=== PATIENT | male | born 1970 | race Caucasian/White ===

== ENCOUNTER 2021-11-09 19:46 | Emergency (ER) | payer MEDICAID ==
--- OUTSIDE RECORDS SUMMARY | 2021-11-09 19:59 | EXTERNAL MEDICAL SUMMARY RPT | Continuity of Care Document ---
:1970 Author Organization [facility] Address [address] [place] [address] Phone Allergies and Intolerances date description facility type (no date) No Known Drug Allergies [facility] (unkn own) Encounters No information. Functional Status No information. Immunizations No information. Medications No information. Problems No information. Procedures No information. Results/Labs test date author facility value unit interpret ation Result panel 1 (unknown) (no (unknown) (unknown) (no value) (units (unk nown) date) unknown) (unknown) (no (unknown) (unknown) Date of (units (unkno wn) date) Service: unknown) 10/16/21 (unknown) (no (unknown) (unknown) (no value) (units (unk nown) date) unknown) (unknown) (no (unknown) (unknown) 750 mg PO DAILY (units (unknown) date) Qty: 4 0RF unknown) (unknown) (no (unknown) (unknown) Allergies (units (unkn own) date) unknown) (unknown) (no (unknown) (unknown) Emergency (units (unkn own) date) Report unknown) (unknown) (no (unknown) (unknown) [facility] (units (unknown) date) [address] [place] [address] unknown) [place] [address] (unknown) (no (unknown) (unknown) Previous Rx's (units ( unknown) date) unknown) (unknown) (no (unknown) (unknown) Vital Signs - 8 (units (unknown) date) hr unknown) (unknown) (no (unknown) (unknown) (no value) (units (unk nown) date) unknown) (unknown) (no (unknown) (unknown) levofloxacin (units (u nknown) date) 750 mg tablet unknown) (unknown) (no (unknown) (unknown) 10/16/21 (units (unkno wn) date) unknown) (unknown) (no (unknown) (unknown) Medication (units (unk nown) date) Instructions unknown) Recorded (unknown) (no (unknown) (unknown) [id number] (units (unkn own) date) unknown) (unknown) (no (unknown) (unknown) 10:36 (units (unkno wn) date) unknown) (unknown) (no (unknown) (unknown) Age/Sex: 51 / M (units (unknown) date) unknown) (unknown) (no (unknown) (unknown) Allergy/AdvReac (units (unknown) date) Type Severity unknown) Reaction Status Date / Time (unknown) (no (unknown) (unknown) Blood Pressure (units (unknown) date) 134/87 unknown) 10/16/21 10:36 (unknown) (no (unknown) (unknown) Blood Pressure (units (unknown) date) 134/87 unknown) (unknown) (no (unknown) (unknown) Chief (units (unkno wn) date) Complaint: Neck unknown) Pain/Injury (unknown) (no (unknown) (unknown) Course (units (unkno wn) date) unknown) (unknown) (no (unknown) (unknown) : 1970 (units (unknown) date) unknown) Acct:[id number] (unknown) (no (unknown) (unknown) Departure (units (unkn own) date) unknown) (unknown) (no (unknown) (unknown) Discharge Plan (units (unknown) date) unknown) (unknown) (no (unknown) (unknown) ER Physician: (units ( unknown) date) Flo Kingsley unknown) LUIS (unknown) (no (unknown) (unknown) Exam (units (unkno wn) date) unknown) (unknown) (no (unknown) (unknown) Family History (units (unknown) date) (Reviewed unknown) 01/10/20 @ 19:26 by LUIS Rudolph) (unknown) (no (unknown) (unknown) Father (units (unkno wn) date) Healthy adult unknown) (unknown) (no (unknown) (unknown) General (units (unkno wn) date) unknown) (unknown) (no (unknown) (unknown) HPI - Neck (units (unk nown) date) Pain/Injury unknown) (unknown) (no (unknown) (unknown) Healthy adult (units ( unknown) date) male unknown) (unknown) (no (unknown) (unknown) Initial Vital (units ( unknown) date) Signs unknown) (unknown) (no (unknown) (unknown) Initial Vital (units ( unknown) date) Signs: unknown) (unknown) (no (unknown) (unknown) Medical History (units (unknown) date) (Reviewed unknown) 01/10/20 @ 19:26 by LUIS Rudolph) (unknown) (no (unknown) (unknown) Miscellaneous,D (units (unknown) date) MD cony unknown) [Primary Care Provider] - (unknown) (no (unknown) (unknown) Mode of (units (unkno wn) date) arrival: unknown) Ambulatory (unknown) (no (unknown) (unknown) Mother Asthma (units (unknown) date) unknown) (unknown) (no (unknown) (unknown) No Action (units (unkn own) date) unknown) (unknown) (no (unknown) (unknown) No Known Drug (units ( unknown) date) Allergies unknown) Allergy Verified 10/16/21 10:41 (unknown) (no (unknown) (unknown) No significant (units (unknown) date) past surgical unknown) history (unknown) (no (unknown) (unknown) Oxygen Delivery (units (unknown) date) Method unknown) 10/16/21 10:36 (unknown) (no (unknown) (unknown) Oxygen Delivery (units (unknown) date) Method Room Air unknown) (unknown) (no (unknown) (unknown) Patient History (units (unknown) date) unknown) (unknown) (no (unknown) (unknown) Patient: (units (unkno wn) date) Wm Sutton unknown) R MR#: M (unknown) (no (unknown) (unknown) Prescriptions: (units (unknown) date) unknown) (unknown) (no (unknown) (unknown) Pulse Oximetry (units (unknown) date) 96 10/16/21 unknown) 10:36 (unknown) (no (unknown) (unknown) Pulse Oximetry (units (unknown) date) 96 unknown) (unknown) (no (unknown) (unknown) Pulse Rate 89 (units (unknown) date) 10/16/21 10:36 unknown) (unknown) (no (unknown) (unknown) Pulse Rate 89 (units ( unknown) date) unknown) (unknown) (no (unknown) (unknown) Referrals: (units (unk nown) date) unknown) (unknown) (no (unknown) (unknown) Related Data (units (u nknown) date) unknown) (unknown) (no (unknown) (unknown) Respiratory (units (un known) date) Rate 14 unknown) 10/16/21 10:36 (unknown) (no (unknown) (unknown) Respiratory (units (un known) date) Rate 14 unknown) (unknown) (no (unknown) (unknown) Signed By: (units (unk nown) date) unknown) (unknown) (no (unknown) (unknown) Sister (units (unkno wn) date) Healthy adult unknown) (unknown) (no (unknown) (unknown) Smoking Status: (units (unknown) date) Current every unknown) day smoker (unknown) (no (unknown) (unknown) Smoking Status: (units (unknown) date) Current every unknown) day smoker (unknown) (no (unknown) (unknown) Social History (units (unknown) date) (Reviewed unknown) 01/10/20 @ 19:26 by LUIS Rudolph) (unknown) (no (unknown) (unknown) Stated (units (unkno wn) date) Complaint: neck unknown) pain (unknown) (no (unknown) (unknown) Substance Use (units ( unknown) date) Type: does not unknown) use (unknown) (no (unknown) (unknown) Surgical (units (unkno wn) date) History unknown) (unknown) (no (unknown) (unknown) Temperature (units (un known) date) 97.6 F unknown) 10/16/21 10:36 (unknown) (no (unknown) (unknown) Temperature (units (un known) date) 97.6 F unknown) (unknown) (no (unknown) (unknown) Time Seen by (units (u nknown) date) Provider: unknown) 10/16/21 11:57 (unknown) (no (unknown) (unknown) Tobacco (units (unkno wn) date) dependence unknown) (unknown) (no (unknown) (unknown) Vital Signs (units (un known) date) unknown) (unknown) (no (unknown) (unknown) Vital signs: (units (u nknown) date) unknown) (unknown) (no (unknown) (unknown) alcohol intake (units (unknown) date) frequency: unknown) holidays/special occasions only (unknown) (no (unknown) (unknown) alcohol intake: (units (unknown) date) never unknown) (unknown) (no (unknown) (unknown) household (units (unkn own) date) members: spouse unknown) and family (unknown) (no (unknown) (unknown) levofloxacin (units (u nknown) date) 750 mg tablet unknown) 750 mg PO DAILY #4 tabs 06/10/18 (unknown) (no (unknown) (unknown) substance use (units ( unknown) date) type: does not unknown) use Result panel 2 (unknown) (no (unknown) (unknown) (no value) (units (unk nown) date) unknown) (unknown) (no (unknown) (unknown) [address] [place] [address] (units (unknown) date) unknown) (unknown) (no (unknown) (unknown) [place] (units ( unknown) date) [address] unknown) (unknown) (no (unknown) (unknown) CT Scan Report (units (unknown) date) unknown) (unknown) (no (unknown) (unknown) [facility] (units (unknown) date) unknown) (unknown) (no (unknown) (unknown) Signed (units (unkno wn) date) unknown) (unknown) (no (unknown) (unknown) (no value) (units (unk nown) date) unknown) (unknown) (no (unknown) (unknown) 10/16/21 (units (unkno wn) date) unknown) (unknown) (no (unknown) (unknown) Approved by: (units (u nknown) date) wolf Eduardo M.D. on 10/16/2021 at 12:44 (unknown) (no (unknown) (unknown) Bones: There is (units (unknown) date) normal overall unknown) bony alignment. No acute vertebral body (unknown) (no (unknown) (unknown) COMPARISON: (units (un known) date) None. unknown) (unknown) (no (unknown) (unknown) FINDINGS: (units (unkn own) date) unknown) (unknown) (no (unknown) (unknown) IMPRESSION: (units (un known) date) unknown) (unknown) (no (unknown) (unknown) INDICATIONS: (units (u nknown) date) Pain unknown) (unknown) (no (unknown) (unknown) Image quality: (units (unknown) date) Excellent. unknown) (unknown) (no (unknown) (unknown) Incidental (units (unk nown) date) pulmonary unknown) subpleural blebs and fibrotic change (unknown) (no (unknown) (unknown) Noncontrast 3 mm (units (unknown) date) thick sections unknown) acquired through the region of interest in the (unknown) (no (unknown) (unknown) Soft tissues: (units ( unknown) date) No paravertebral unknown) masses or hematomas. Visualized posteromedial (unknown) (no (unknown) (unknown) TECHNIQUE: (units (unk nown) date) unknown) (unknown) (no (unknown) (unknown) Unremarkable CT (units (unknown) date) thoracic spine unknown) without fracture or intrinsic osseous lesion. (unknown) (no (unknown) (unknown) appear clear. (units ( unknown) date) Subpleural blebs unknown) and fibrotic change noted in both lungs (unknown) (no (unknown) (unknown) fractures. No (units (unknown) date) suspicious unknown) sclerotic or lytic bony lesions. Osseous central (unknown) (no (unknown) (unknown) is of normal (units (u nknown) date) overall caliber. unknown) (unknown) (no (unknown) (unknown) reduction, the (units (unknown) date) following was unknown) used: automated exposure control. (unknown) (no (unknown) (unknown) spine. Sagittal (units (unknown) date) and coronal unknown) reformats were then constructed. For radiation (unknown) (no (unknown) (unknown) Accession (units (unkn own) date) Number: unknown) [id number] (unknown) (no (unknown) (unknown) Age/Sex: 51 / M (units (unknown) date) Date of unknown) Service: (unknown) (no (unknown) (unknown) : 1970 (units (unknown) date) Acct:[id number] unknown) (unknown) (no (unknown) (unknown) Loc: ED (units (unkno wn) date) unknown) (unknown) (no (unknown) (unknown) [id number] (units (unk nown) date) unknown) (unknown) (no (unknown) (unknown) Ordering (units (unkno wn) date) Provider: unknown) Flo Kingsley (unknown) (no (unknown) (unknown) PROCEDURE: CT (units (unknown) date) THORACIC SPINE WO unknown) CON (unknown) (no (unknown) (unknown) Patient: (units (unkno wn) date) Wm Sutton R unknown) MR#: (unknown) (no (unknown) (unknown) Procedure: CT (units ( unknown) date) thoracic spine wo unknown) con (unknown) (no (unknown) (unknown) compression (units (un known) date) unknown) (unknown) (no (unknown) (unknown) dose (units (unkno wn) date) unknown) (unknown) (no (unknown) (unknown) lungs (units (unkno wn) date) unknown) (unknown) (no (unknown) (unknown) spinal canal (units (u nknown) date) unknown) (unknown) (no (unknown) (unknown) thoracic (units (unkno wn) date) unknown) Result panel 3 (unknown) (no (unknown) (unknown) (no value) (units (unk nown) date) unknown) (unknown) (no (unknown) (unknown) Date of Service: (units (unknown) date) 10/16/21 unknown) (unknown) (no (unknown) (unknown) (no value) (units (unk nown) date) unknown) (unknown) (no (unknown) (unknown) 750 mg PO DAILY (units (unknown) date) Qty: 4 0RF unknown) (unknown) (no (unknown) (unknown) Allergies (units (unkn own) date) unknown) (unknown) (no (unknown) (unknown) Emergency Report (units (unknown) date) unknown) (unknown) (no (unknown) (unknown) [facility] (units (unknown) date) [address] unknown) [place] [id number] (unknown) (no (unknown) (unknown) Previous Rx's (units ( unknown) date) unknown) (unknown) (no (unknown) (unknown) Vital Signs - 8 (units (unknown) date) hr unknown) (unknown) (no (unknown) (unknown) (no value) (units (unk nown) date) unknown) (unknown) (no (unknown) (unknown) levofloxacin 750 (units (unknown) date) mg tablet unknown) (unknown) (no (unknown) (unknown) 10/16/21 (units (unkno wn) date) unknown) (unknown) (no (unknown) (unknown) Medication (units (unk nown) date) Instructions unknown) Recorded (unknown) (no (unknown) (unknown) Paraspinous (units (un known) date) tenderness at unknown) T3-4. Positive pain with Spurling's test but no hand (unknown) (no (unknown) (unknown) [id number] (units (unkn own) date) unknown) (unknown) (no (unknown) (unknown) 10:36 (units (unkno wn) date) unknown) (unknown) (no (unknown) (unknown) 51-year-old male, (units (unknown) date) daily smoker, unknown) presents emergency department with upper back (unknown) (no (unknown) (unknown) Age/Sex: 51 / M (units (unknown) date) unknown) (unknown) (no (unknown) (unknown) Allergy/AdvReac (units (unknown) date) Type Severity unknown) Reaction Status Date / Time (unknown) (no (unknown) (unknown) Blood Pressure (units (unknown) date) 134/87 10/16/21 unknown) 10:36 (unknown) (no (unknown) (unknown) Blood Pressure (units (unknown) date) 134/87 unknown) (unknown) (no (unknown) (unknown) CARDIOVASCULAR: (units (unknown) date) Denies chest pain, unknown) palpitations, edema. (unknown) (no (unknown) (unknown) CARDIOVASCULAR: (units (unknown) date) Regular rate and unknown) rhythm without murmurs, peripheral pulses (unknown) (no (unknown) (unknown) Chief Complaint: (units (unknown) date) Neck Pain/Injury unknown) (unknown) (no (unknown) (unknown) Course (units (unkno wn) date) unknown) (unknown) (no (unknown) (unknown) : 1970 (units (unknown) date) Acct:[id number] unknown) (unknown) (no (unknown) (unknown) Departure (units (unkn own) date) unknown) (unknown) (no (unknown) (unknown) Discharge Plan (units (unknown) date) unknown) (unknown) (no (unknown) (unknown) ER Physician: (units ( unknown) date) Flo Kingsley unknown) (unknown) (no (unknown) (unknown) Exam (units (unkno wn) date) unknown) (unknown) (no (unknown) (unknown) Exam Narrative: (units (unknown) date) unknown) (unknown) (no (unknown) (unknown) Family History (units (unknown) date) (Reviewed 10/16/21 unknown) @ 12:32 by LUIS Zaragoza) (unknown) (no (unknown) (unknown) Father Healthy (units (unknown) date) adult unknown) (unknown) (no (unknown) (unknown) GASTROINTESTINAL: (units (unknown) date) Abdomen soft, unknown) non-tender, nondistended without guarding or (unknown) (no (unknown) (unknown) GASTROINTESTINAL: (units (unknown) date) Denies nausea, unknown) vomiting, abdominal pain, diarrhea, (unknown) (no (unknown) (unknown) GENERAL: Denies (units (unknown) date) chills, fatigue, unknown) fever, sweats. See HPI (unknown) (no (unknown) (unknown) GENERAL: This is (units (unknown) date) a well-nourished, unknown) well-developed patient, in no acute distress (unknown) (no (unknown) (unknown) : Denies (units (un known) date) dysuria, unknown) frequency, incontinence, hematuria, urinary retention, (unknown) (no (unknown) (unknown) General (units (unkno wn) date) unknown) (unknown) (no (unknown) (unknown) HEAD: Atraumatic. (units (unknown) date) Normocephalic. unknown) (unknown) (no (unknown) (unknown) HEENT: Denies (units ( unknown) date) sinus pain, ear unknown) pain, sore throat, difficulty swallowing, (unknown) (no (unknown) (unknown) HPI - Neck (units (unk nown) date) Pain/Injury unknown) (unknown) (no (unknown) (unknown) HPI Narrative: (units (unknown) date) unknown) (unknown) (no (unknown) (unknown) Healthy adult (units ( unknown) date) male unknown) (unknown) (no (unknown) (unknown) History of (units (unk nown) date) Present Illness unknown) (unknown) (no (unknown) (unknown) Initial Vital (units ( unknown) date) Signs unknown) (unknown) (no (unknown) (unknown) Initial Vital (units ( unknown) date) Signs: unknown) (unknown) (no (unknown) (unknown) MSK: Moves all (units (unknown) date) extremities. unknown) Normal range of motion, no clubbing or edema. (unknown) (no (unknown) (unknown) MSK: Denies (units (un known) date) weakness, joint unknown) pain, or bony pain. (unknown) (no (unknown) (unknown) Medical History (units (unknown) date) (Reviewed 10/16/21 unknown) @ 12:32 by LUIS Zaragoza) (unknown) (no (unknown) (unknown) Miscellaneous,Doc (units (unknown) date) MD luisito [Primary unknown) Care Provider] - (unknown) (no (unknown) (unknown) Mode of arrival: (units (unknown) date) Ambulatory unknown) (unknown) (no (unknown) (unknown) Mother Asthma (units (unknown) date) unknown) (unknown) (no (unknown) (unknown) NECK: Trachea (units (u nknown) date) midline. No JVD or unknown) lymphadenopathy. Tender along right trapezius. (unknown) (no (unknown) (unknown) NEURO: A+O x 3. (units (unknown) date) unknown) (unknown) (no (unknown) (unknown) NEUROLOGIC: (units (un known) date) Denies weakness, unknown) dizziness, headache, confusion. (unknown) (no (unknown) (unknown) Narrative (units (unkn own) date) unknown) (unknown) (no (unknown) (unknown) Narrative: (units (unk nown) date) unknown) (unknown) (no (unknown) (unknown) Neurovascularly (units (unknown) date) intact. unknown) (unknown) (no (unknown) (unknown) No Action (units (unkn own) date) unknown) (unknown) (no (unknown) (unknown) No Known Drug (units ( unknown) date) Allergies Allergy unknown) Verified 10/16/21 10:41 (unknown) (no (unknown) (unknown) No significant (units (unknown) date) past surgical unknown) history (unknown) (no (unknown) (unknown) Oxygen Delivery (units (unknown) date) Method 10/16/21 unknown) 10:36 (unknown) (no (unknown) (unknown) Oxygen Delivery (units (unknown) date) Method Room Air unknown) (unknown) (no (unknown) (unknown) PSYCHIATRIC: No (units (unknown) date) concerning unknown) psychosocial issues. (unknown) (no (unknown) (unknown) Patient History (units (unknown) date) unknown) (unknown) (no (unknown) (unknown) Patient: (units (unkno wn) date) Wm Sutton R unknown) MR#: M (unknown) (no (unknown) (unknown) Prescriptions: (units (unknown) date) unknown) (unknown) (no (unknown) (unknown) Pulse Oximetry (units (unknown) date) 96 10/16/21 unknown) 10:36 (unknown) (no (unknown) (unknown) Pulse Oximetry 96 (units (unknown) date) unknown) (unknown) (no (unknown) (unknown) Pulse Rate 89 (units (unknown) date) 10/16/21 10:36 unknown) (unknown) (no (unknown) (unknown) Pulse Rate 89 (units ( unknown) date) unknown) (unknown) (no (unknown) (unknown) RESPIRATORY: (units (u nknown) date) Breath sounds unknown) equal and clear bilaterally. No wheezes, rales, or (unknown) (no (unknown) (unknown) RESPIRATORY: (units (u nknown) date) Denies dyspnea, unknown) cough, wheezing, sputum. (unknown) (no (unknown) (unknown) Referrals: (units (unk nown) date) unknown) (unknown) (no (unknown) (unknown) Related Data (units (u nknown) date) unknown) (unknown) (no (unknown) (unknown) Respiratory Rate (units (unknown) date) 14 10/16/21 unknown) 10:36 (unknown) (no (unknown) (unknown) Respiratory Rate (units (unknown) date) 14 unknown) (unknown) (no (unknown) (unknown) Review of Systems (units (unknown) date) unknown) (unknown) (no (unknown) (unknown) Reviewed (units (unkno wn) date) unknown) (unknown) (no (unknown) (unknown) SKIN: Denies (units (u nknown) date) rash, skin unknown) lesions, or pruritis. (unknown) (no (unknown) (unknown) SKIN: Warm, dry, (units (unknown) date) no rashes or unknown) lesions noted. (unknown) (no (unknown) (unknown) Signed By: (units (unk nown) date) unknown) (unknown) (no (unknown) (unknown) Sister Healthy (units (unknown) date) adult unknown) (unknown) (no (unknown) (unknown) Smoking Status: (units (unknown) date) Current every day unknown) smoker (unknown) (no (unknown) (unknown) Smoking Status: (units (unknown) date) Current every day unknown) smoker (unknown) (no (unknown) (unknown) Social History (units (unknown) date) (Reviewed 10/16/21 unknown) @ 12:32 by LUIS Zaragoza) (unknown) (no (unknown) (unknown) Stated Complaint: (units (unknown) date) neck pain unknown) (unknown) (no (unknown) (unknown) Substance Use (units ( unknown) date) Type: does not use unknown) (unknown) (no (unknown) (unknown) Surgical History (units (unknown) date) (Reviewed 10/16/21 unknown) @ 12:32 by LUIS Zaragoza) (unknown) (no (unknown) (unknown) Temperature 97.6 (units (unknown) date) F 10/16/21 10:36 unknown) (unknown) (no (unknown) (unknown) Temperature 97.6 (units (unknown) date) F unknown) (unknown) (no (unknown) (unknown) Time Seen by (units (u nknown) date) Provider: 10/16/21 unknown) 11:57 (unknown) (no (unknown) (unknown) Tobacco (units (unkno wn) date) dependence unknown) (unknown) (no (unknown) (unknown) Vital Signs (units (un known) date) unknown) (unknown) (no (unknown) (unknown) Vital signs: (units (u nknown) date) unknown) (unknown) (no (unknown) (unknown) alcohol intake (units (unknown) date) frequency: unknown) holidays/special occasions only (unknown) (no (unknown) (unknown) alcohol intake: (units (unknown) date) never unknown) (unknown) (no (unknown) (unknown) and neck pain x3 (units (unknown) date) days. Patient unknown) reports numbness and tingling of bilateral hands (unknown) (no (unknown) (unknown) constipation. (units ( unknown) date) unknown) (unknown) (no (unknown) (unknown) dizziness. (units (unk nown) date) unknown) (unknown) (no (unknown) (unknown) flank pain. (units (un known) date) unknown) (unknown) (no (unknown) (unknown) household (units (unkn own) date) members: spouse unknown) and family (unknown) (no (unknown) (unknown) injuries to his (units (unknown) date) spinal column. No unknown) history of cancer. Patient appears much (unknown) (no (unknown) (unknown) intact, cap (units (un known) date) refill <2 sec. unknown) (unknown) (no (unknown) (unknown) levofloxacin 750 (units (unknown) date) mg tablet 750 mg unknown) PO DAILY #4 tabs 06/10/18 (unknown) (no (unknown) (unknown) numbness. (units (unkn own) date) unknown) (unknown) (no (unknown) (unknown) older than his (units (unknown) date) stated age. unknown) (unknown) (no (unknown) (unknown) rebound. No (units (un known) date) suprapubic pain. unknown) (unknown) (no (unknown) (unknown) rhonchi. No (units (u nknown) date) cough. No unknown) increased respiratory effort. No accessory muscle use. (unknown) (no (unknown) (unknown) substance use (units ( unknown) date) type: does not unknown) use (unknown) (no (unknown) (unknown) that is not (units (un known) date) painful. Patient unknown) denies any trauma to that area or any previous (unknown) (no (unknown) (unknown) when lying on his (units (unknown) date) left side. unknown) Patient denies the ability to lay in a position Result panel 4 (unknown) (no (unknown) (unknown) (no value) (units (unk nown) date) unknown) (unknown) (no (unknown) (unknown) Date of Service: (units (unknown) date) 10/16/21 unknown) (unknown) (no (unknown) (unknown) (no value) (units (unk nown) date) unknown) (unknown) (no (unknown) (unknown) 750 mg PO DAILY (units (unknown) date) Qty: 4 0RF unknown) (unknown) (no (unknown) (unknown) Allergies (units (unkn own) date) unknown) (unknown) (no (unknown) (unknown) ED Orders (units (unkn own) date) unknown) (unknown) (no (unknown) (unknown) Emergency Report (units (unknown) date) unknown) (unknown) (no (unknown) (unknown) [facility] (units (unknown) date) [address] [place] [address] Street unknown) [place] [address] (unknown) (no (unknown) (unknown) Previous Rx's (units ( unknown) date) unknown) (unknown) (no (unknown) (unknown) Vital Signs - 8 (units (unknown) date) hr unknown) (unknown) (no (unknown) (unknown) (no value) (units (unk nown) date) unknown) (unknown) (no (unknown) (unknown) levofloxacin 750 (units (unknown) date) mg tablet unknown) (unknown) (no (unknown) (unknown) 10/16/21 (units (unkno wn) date) unknown) (unknown) (no (unknown) (unknown) Medication (units (unk nown) date) Instructions unknown) Recorded (unknown) (no (unknown) (unknown) [id number] (units (unkn own) date) unknown) (unknown) (no (unknown) (unknown) 10/16/21 12:28 (units (unknown) date) unknown) (unknown) (no (unknown) (unknown) 10:36 (units (unkno wn) date) unknown) (unknown) (no (unknown) (unknown) 51-year-old male, (units (unknown) date) daily smoker, unknown) presents emergency department with upper back (unknown) (no (unknown) (unknown) Age/Sex: 51 / M (units (unknown) date) unknown) (unknown) (no (unknown) (unknown) Allergy/AdvReac (units (unknown) date) Type Severity unknown) Reaction Status Date / Time (unknown) (no (unknown) (unknown) BACK (units (unkno wn) date) unknown) (unknown) (no (unknown) (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 (unknown) (no (unknown) (unknown) Back/Spine/Pelvis (units (unknown) date) unknown) (unknown) (no (unknown) (unknown) Blood Pressure (units (unknown) date) 134/87 10/16/21 unknown) 10:36 (unknown) (no (unknown) (unknown) Blood Pressure (units (unknown) date) 134/87 unknown) (unknown) (no (unknown) (unknown) CARDIOVASCULAR: (units (unknown) date) Denies chest pain, unknown) palpitations, edema. (unknown) (no (unknown) (unknown) CARDIOVASCULAR: (units (unknown) date) Regular rate and unknown) rhythm without murmurs, peripheral pulses (unknown) (no (unknown) (unknown) CT thoracic spine (units (unknown) date) wo con Stat unknown) (unknown) (no (unknown) (unknown) Chief Complaint: (units (unknown) date) Neck Pain/Injury unknown) (unknown) (no (unknown) (unknown) Course (units (unkno wn) date) unknown) (unknown) (no (unknown) (unknown) : 1970 (units (unknown) date) Acct:[id number] unknown) (unknown) (no (unknown) (unknown) Departure (units (unkn own) date) unknown) (unknown) (no (unknown) (unknown) Discharge Plan (units (unknown) date) unknown) (unknown) (no (unknown) (unknown) ER Physician: (units ( unknown) date) Flo Kingsley unknown) (unknown) (no (unknown) (unknown) Exam (units (unkno wn) date) unknown) (unknown) (no (unknown) (unknown) Exam Narrative: (units (unknown) date) unknown) (unknown) (no (unknown) (unknown) Family History (units (unknown) date) (Reviewed 10/16/21 unknown) @ 12:32 by LUIS Zaragoza) (unknown) (no (unknown) (unknown) Father Healthy (units (unknown) date) adult unknown) (unknown) (no (unknown) (unknown) GASTROINTESTINAL: (units (unknown) date) Abdomen soft, unknown) non-tender, nondistended without guarding or (unknown) (no (unknown) (unknown) GASTROINTESTINAL: (units (unknown) date) Denies nausea, unknown) vomiting, abdominal pain, diarrhea, (unknown) (no (unknown) (unknown) GENERAL: Denies (units (unknown) date) chills, fatigue, unknown) fever, sweats. See HPI (unknown) (no (unknown) (unknown) GENERAL: This is (units (unknown) date) a well-nourished, unknown) well-developed patient, in no acute distress (unknown) (no (unknown) (unknown) : Denies (units (un known) date) dysuria, unknown) frequency, incontinence, hematuria, urinary retention, (unknown) (no (unknown) (unknown) General (units (unkno wn) date) unknown) (unknown) (no (unknown) (unknown) HEAD: Atraumatic. (units (unknown) date) Normocephalic. unknown) (unknown) (no (unknown) (unknown) HEENT: Denies (units ( unknown) date) sinus pain, ear unknown) pain, sore throat, difficulty swallowing, (unknown) (no (unknown) (unknown) HPI - Neck (units (unk nown) date) Pain/Injury unknown) (unknown) (no (unknown) (unknown) HPI Narrative: (units (unknown) date) unknown) (unknown) (no (unknown) (unknown) Healthy adult (units ( unknown) date) male unknown) (unknown) (no (unknown) (unknown) History of (units (unk nown) date) Present Illness unknown) (unknown) (no (unknown) (unknown) Initial Vital (units ( unknown) date) Signs unknown) (unknown) (no (unknown) (unknown) Initial Vital (units ( unknown) date) Signs: unknown) (unknown) (no (unknown) (unknown) MSK: Moves all (units (unknown) date) extremities. unknown) Normal range of motion, no clubbing or edema. (unknown) (no (unknown) (unknown) MSK: Denies (units (un known) date) weakness, joint unknown) pain, or bony pain. (unknown) (no (unknown) (unknown) Medical History (units (unknown) date) (Reviewed 10/16/21 unknown) @ 12:32 by LUIS Zaragoza) (unknown) (no (unknown) (unknown) Miscellaneous,Doc (units (unknown) date) MD luisito [Primary unknown) Care Provider] - (unknown) (no (unknown) (unknown) Mode of arrival: (units (unknown) date) Ambulatory unknown) (unknown) (no (unknown) (unknown) Mother Asthma (units (unknown) date) unknown) (unknown) (no (unknown) (unknown) NECK: Trachea (units ( unknown) date) midline. No JVD or unknown) lymphadenopathy. Tender and tight along right (unknown) (no (unknown) (unknown) NEURO: A+O x 3. (units (unknown) date) unknown) (unknown) (no (unknown) (unknown) NEUROLOGIC: (units (un known) date) Denies weakness, unknown) dizziness, headache, confusion. (unknown) (no (unknown) (unknown) Narrative (units (unkn own) date) unknown) (unknown) (no (unknown) (unknown) Narrative: (units (unk nown) date) unknown) (unknown) (no (unknown) (unknown) Neurovascularly (units (unknown) date) intact. unknown) (unknown) (no (unknown) (unknown) No Action (units (unkn own) date) unknown) (unknown) (no (unknown) (unknown) No Known Drug (units ( unknown) date) Allergies Allergy unknown) Verified 10/16/21 10:41 (unknown) (no (unknown) (unknown) No significant (units (unknown) date) past surgical unknown) history (unknown) (no (unknown) (unknown) No symptoms of (units (unknown) date) cauda equina such unknown) as saddle anesthesia. (unknown) (no (unknown) (unknown) Ordered: (units (unkno wn) date) unknown) (unknown) (no (unknown) (unknown) Orders (units (unkno wn) date) unknown) (unknown) (no (unknown) (unknown) Other: (units (unkno wn) date) unknown) (unknown) (no (unknown) (unknown) Oxygen Delivery (units (unknown) date) Method 10/16/21 unknown) 10:36 (unknown) (no (unknown) (unknown) Oxygen Delivery (units (unknown) date) Method Room Air unknown) (unknown) (no (unknown) (unknown) PSYCHIATRIC: No (units (unknown) date) concerning unknown) psychosocial issues. (unknown) (no (unknown) (unknown) Patient History (units (unknown) date) unknown) (unknown) (no (unknown) (unknown) Patient: (units (unkno wn) date) Wm Sutton R unknown) MR#: M (unknown) (no (unknown) (unknown) Prescriptions: (units (unknown) date) unknown) (unknown) (no (unknown) (unknown) Pulse Oximetry (units (unknown) date) 96 10/16/21 unknown) 10:36 (unknown) (no (unknown) (unknown) Pulse Oximetry 96 (units (unknown) date) unknown) (unknown) (no (unknown) (unknown) Pulse Rate 89 (units (unknown) date) 10/16/21 10:36 unknown) (unknown) (no (unknown) (unknown) Pulse Rate 89 (units ( unknown) date) unknown) (unknown) (no (unknown) (unknown) RESPIRATORY: (units (u nknown) date) Breath sounds unknown) equal and clear bilaterally. No wheezes, rales, or (unknown) (no (unknown) (unknown) RESPIRATORY: (units (u nknown) date) Denies dyspnea, unknown) cough, wheezing, sputum. (unknown) (no (unknown) (unknown) ROM is full and (units (unknown) date) without pain. unknown) (unknown) (no (unknown) (unknown) Referrals: (units (unk nown) date) unknown) (unknown) (no (unknown) (unknown) Related Data (units (u nknown) date) unknown) (unknown) (no (unknown) (unknown) Resistive (units (unkn own) date) strengths are unknown) within normal limits (unknown) (no (unknown) (unknown) Respiratory Rate (units (unknown) date) 14 10/16/21 unknown) 10:36 (unknown) (no (unknown) (unknown) Respiratory Rate (units (unknown) date) 14 unknown) (unknown) (no (unknown) (unknown) Review of Systems (units (unknown) date) unknown) (unknown) (no (unknown) (unknown) Reviewed (units (unkno wn) date) unknown) (unknown) (no (unknown) (unknown) SI joints (units (unkn own) date) nontender. unknown) (unknown) (no (unknown) (unknown) SKIN: Denies (units (u nknown) date) rash, skin unknown) lesions, or pruritis. (unknown) (no (unknown) (unknown) SKIN: Warm, dry, (units (unknown) date) no rashes or unknown) lesions noted. (unknown) (no (unknown) (unknown) Sensation is (units (u nknown) date) grossly intact. unknown) (unknown) (no (unknown) (unknown) Signed By: (units (unk nown) date) unknown) (unknown) (no (unknown) (unknown) Sister Healthy (units (unknown) date) adult unknown) (unknown) (no (unknown) (unknown) Smoking Status: (units (unknown) date) Current every day unknown) smoker (unknown) (no (unknown) (unknown) Smoking Status: (units (unknown) date) Current every day unknown) smoker (unknown) (no (unknown) (unknown) Social History (units (unknown) date) (Reviewed 10/16/21 unknown) @ 12:32 by LUIS Zaragoza) (unknown) (no (unknown) (unknown) Stated Complaint: (units (unknown) date) neck pain unknown) (unknown) (no (unknown) (unknown) Substance Use (units ( unknown) date) Type: does not use unknown) (unknown) (no (unknown) (unknown) Surgical History (units (unknown) date) (Reviewed 10/16/21 unknown) @ 12:32 by LUIS Zaragoza) (unknown) (no (unknown) (unknown) Temperature 97.6 (units (unknown) date) F 10/16/21 10:36 unknown) (unknown) (no (unknown) (unknown) Temperature 97.6 (units (unknown) date) F unknown) (unknown) (no (unknown) (unknown) There is no CVA (units (unknown) date) tenderness. unknown) Paraspinous tenderness at T3-4 (unknown) (no (unknown) (unknown) There is no (units (un known) date) asymmetry, unknown) swelling, bruising or wound. (unknown) (no (unknown) (unknown) Time Seen by (units (u nknown) date) Provider: 10/16/21 unknown) 11:57 (unknown) (no (unknown) (unknown) Tobacco (units (unkno wn) date) dependence unknown) (unknown) (no (unknown) (unknown) Vital Signs (units (un known) date) unknown) (unknown) (no (unknown) (unknown) Vital signs: (units (u nknown) date) unknown) (unknown) (no (unknown) (unknown) alcohol intake (units (unknown) date) frequency: unknown) holidays/special occasions only (unknown) (no (unknown) (unknown) alcohol intake: (units (unknown) date) never unknown) (unknown) (no (unknown) (unknown) and neck pain x3 (units (unknown) date) days. Patient unknown) reports numbness and tingling of bilateral hands (unknown) (no (unknown) (unknown) but no hand (units (un known) date) numbness. unknown) (unknown) (no (unknown) (unknown) constipation. (units ( unknown) date) unknown) (unknown) (no (unknown) (unknown) dizziness. (units (unk nown) date) unknown) (unknown) (no (unknown) (unknown) flank pain. (units (un known) date) unknown) (unknown) (no (unknown) (unknown) household (units (unkn own) date) members: spouse unknown) and family (unknown) (no (unknown) (unknown) injuries to his (units (unknown) date) spinal column. No unknown) history of cancer. Patient appears much (unknown) (no (unknown) (unknown) intact, cap (units (un known) date) refill <2 sec. unknown) (unknown) (no (unknown) (unknown) levofloxacin 750 (units (unknown) date) mg tablet 750 mg unknown) PO DAILY #4 tabs 06/10/18 (unknown) (no (unknown) (unknown) older than his (units (unknown) date) stated age. unknown) (unknown) (no (unknown) (unknown) rebound. No (units (un known) date) suprapubic pain. unknown) (unknown) (no (unknown) (unknown) rhonchi. No (units (u nknown) date) cough. No unknown) increased respiratory effort. No accessory muscle use. (unknown) (no (unknown) (unknown) substance use (units ( unknown) date) type: does not unknown) use (unknown) (no (unknown) (unknown) that is not (units (un known) date) painful. Patient unknown) denies any trauma to that area or any previous (unknown) (no (unknown) (unknown) trapezius. (units (unk nown) date) Paraspinous unknown) tenderness at T3-4. Positive pain with Spurling's test (unknown) (no (unknown) (unknown) when lying on his (units (unknown) date) left side. unknown) Patient denies the ability to lay in a position Result panel 5 (unknown) (no (unknown) (unknown) (no value) (units (unk nown) date) unknown) (unknown) (no (unknown) (unknown) Radiologist's (units ( unknown) date) Impression: unknown) (unknown) (no (unknown) (unknown) Date of Service: (units (unknown) date) 10/16/21 unknown) (unknown) (no (unknown) (unknown) (no value) (units (unk nown) date) unknown) (unknown) (no (unknown) (unknown) [address] [place] [address] (units (unknown) date) unknown) (unknown) (no (unknown) (unknown) 750 mg PO DAILY (units (unknown) date) Qty: 4 0RF unknown) (unknown) (no (unknown) (unknown) Allergies (units (unkn own) date) unknown) (unknown) (no (unknown) (unknown) [place], [place] (units ( unknown) date) [id number] unknown) (unknown) (no (unknown) (unknown) CT Scan Report (units (unknown) date) unknown) (unknown) (no (unknown) (unknown) ED Orders (units (unkn own) date) unknown) (unknown) (no (unknown) (unknown) Emergency Report (units (unknown) date) unknown) (unknown) (no (unknown) (unknown) [facility] (units (unknown) date) unknown) (unknown) (no (unknown) (unknown) [facility] (units (unknown) date) [address] unknown) [place] [address] (unknown) (no (unknown) (unknown) Previous Rx's (units ( unknown) date) unknown) (unknown) (no (unknown) (unknown) Signed (units (unkno wn) date) unknown) (unknown) (no (unknown) (unknown) Vital Signs - 8 (units (unknown) date) hr unknown) (unknown) (no (unknown) (unknown) (no value) (units (unk nown) date) unknown) (unknown) (no (unknown) (unknown) levofloxacin 750 (units (unknown) date) mg tablet unknown) (unknown) (no (unknown) (unknown) 10/16/21 (units (unkno wn) date) unknown) (unknown) (no (unknown) (unknown) Medication (units (unk nown) date) Instructions unknown) Recorded (unknown) (no (unknown) (unknown) [id number] (units (unkn own) date) unknown) (unknown) (no (unknown) (unknown) 10/16/21 12:28 (units (unknown) date) unknown) (unknown) (no (unknown) (unknown) 10:36 (units (unkno wn) date) unknown) (unknown) (no (unknown) (unknown) 51-year-old male, (units (unknown) date) daily smoker, unknown) presents emergency department with upper back (unknown) (no (unknown) (unknown) ? (units (unkno wn) date) unknown) (unknown) (no (unknown) (unknown) Accession Number: (units (unknown) date) [id number] ?? unknown) (unknown) (no (unknown) (unknown) Acct:[id number] (units (unknown) date) unknown) (unknown) (no (unknown) (unknown) Age/Sex: 51 / M (units (unknown) date) unknown) (unknown) (no (unknown) (unknown) Age/Sex: 51 / M (units (unknown) date) unknown) (unknown) (no (unknown) (unknown) Allergy/AdvReac (units (unknown) date) Type Severity unknown) Reaction Status Date / Time (unknown) (no (unknown) (unknown) Approved by: Chad (units (unknown) date) Kaylan Pfeiffer on unknown) 10/16/2021 at 12:44? 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 (unknown) (no (unknown) (unknown) Back/Spine/Pelvis (units (unknown) date) unknown) (unknown) (no (unknown) (unknown) Blood Pressure (units (unknown) date) 134/87 10/16/21 unknown) 10:36 (unknown) (no (unknown) (unknown) Blood Pressure (units (unknown) date) 134/87 unknown) (unknown) (no (unknown) (unknown) Bones:? There is (units (unknown) date) normal overall unknown) bony alignment.? No acute vertebral body (unknown) (no (unknown) (unknown) CARDIOVASCULAR: (units (unknown) date) Denies chest pain, unknown) palpitations, edema. (unknown) (no (unknown) (unknown) CARDIOVASCULAR: (units (unknown) date) Regular rate and unknown) rhythm without murmurs, peripheral pulses (unknown) (no (unknown) (unknown) COMPARISON:? (units (u nknown) date) None. unknown) (unknown) (no (unknown) (unknown) CT - Thoracic: (units (unknown) date) unknown) (unknown) (no (unknown) (unknown) CT thoracic spine (units (unknown) date) wo con Stat unknown) (unknown) (no (unknown) (unknown) Chief Complaint: (units (unknown) date) Neck Pain/Injury unknown) (unknown) (no (unknown) (unknown) Course (units (unkno wn) date) unknown) (unknown) (no (unknown) (unknown) : 1970 (units (unknown) date) Acct:[id number] unknown) (unknown) (no (unknown) (unknown) : 1970 (units (unknown) date) unknown) (unknown) (no (unknown) (unknown) Date of Service: (units (unknown) date) 10/16/21 unknown) (unknown) (no (unknown) (unknown) Departure (units (unkn own) date) unknown) (unknown) (no (unknown) (unknown) Discharge Plan (units (unknown) date) unknown) (unknown) (no (unknown) (unknown) ER Physician: (units ( unknown) date) Flo Kingsley unknown) (unknown) (no (unknown) (unknown) Exam (units (unkno wn) date) unknown) (unknown) (no (unknown) (unknown) Exam Narrative: (units (unknown) date) unknown) (unknown) (no (unknown) (unknown) FINDINGS:? (units (unk nown) date) unknown) (unknown) (no (unknown) (unknown) Family History (units (unknown) date) (Reviewed 10/16/21 unknown) @ 12:32 by LUIS Zaragoza) (unknown) (no (unknown) (unknown) Father Healthy (units (unknown) date) adult unknown) (unknown) (no (unknown) (unknown) GASTROINTESTINAL: (units (unknown) date) Abdomen soft, unknown) non-tender, nondistended without guarding or (unknown) (no (unknown) (unknown) GASTROINTESTINAL: (units (unknown) date) Denies nausea, unknown) vomiting, abdominal pain, diarrhea, (unknown) (no (unknown) (unknown) GENERAL: Denies (units (unknown) date) chills, fatigue, unknown) fever, sweats. See HPI (unknown) (no (unknown) (unknown) GENERAL: This is (units (unknown) date) a well-nourished, unknown) well-developed patient, in no acute distress (unknown) (no (unknown) (unknown) : Denies (units (un known) date) dysuria, unknown) frequency, incontinence, hematuria, urinary retention, (unknown) (no (unknown) (unknown) General (units (unkno wn) date) unknown) (unknown) (no (unknown) (unknown) HEAD: Atraumatic. (units (unknown) date) Normocephalic. unknown) (unknown) (no (unknown) (unknown) HEENT: Denies (units ( unknown) date) sinus pain, ear unknown) pain, sore throat, difficulty swallowing, (unknown) (no (unknown) (unknown) HPI - Neck (units (unk nown) date) Pain/Injury unknown) (unknown) (no (unknown) (unknown) HPI Narrative: (units (unknown) date) unknown) (unknown) (no (unknown) (unknown) Healthy adult (units ( unknown) date) male unknown) (unknown) (no (unknown) (unknown) History of (units (unk nown) date) Present Illness unknown) (unknown) (no (unknown) (unknown) IMPRESSION:? (units (u nknown) date) unknown) (unknown) (no (unknown) (unknown) INDICATIONS:? (units ( unknown) date) Pain unknown) (unknown) (no (unknown) (unknown) Image quality:? (units (unknown) date) Excellent.? 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 (unknown) (no (unknown) (unknown) Initial Vital (units ( unknown) date) Signs unknown) (unknown) (no (unknown) (unknown) Initial Vital (units ( unknown) date) Signs: unknown) (unknown) (no (unknown) (unknown) Loc: ED (units (unkno wn) date) unknown) (unknown) (no (unknown) (unknown) MDM - Neck (units (unk nown) date) Pain/Injury unknown) (unknown) (no (unknown) (unknown) MR#: [id number] (units (unknown) date) unknown) (unknown) (no (unknown) (unknown) MSK: Moves all (units (unknown) date) extremities. unknown) Normal range of motion, no clubbing or edema. (unknown) (no (unknown) (unknown) MSK: Denies (units (un known) date) weakness, joint unknown) pain, or bony pain. (unknown) (no (unknown) (unknown) Medical History (units (unknown) date) (Reviewed 10/16/21 unknown) @ 12:32 by LUIS Zaragoza) (unknown) (no (unknown) (unknown) Miscellaneous,Doc (units (unknown) date) MD luisito [Primary unknown) Care Provider] - (unknown) (no (unknown) (unknown) Mode of arrival: (units (unknown) date) Ambulatory unknown) (unknown) (no (unknown) (unknown) Mother Asthma (units (unknown) date) unknown) (unknown) (no (unknown) (unknown) NECK: Trachea (units ( unknown) date) midline. No JVD or unknown) lymphadenopathy. Tender and tight along right (unknown) (no (unknown) (unknown) NEURO: A+O x 3. (units (unknown) date) unknown) (unknown) (no (unknown) (unknown) NEUROLOGIC: (units (un known) date) Denies weakness, unknown) dizziness, headache, confusion. (unknown) (no (unknown) (unknown) Narrative (units (unkn own) date) unknown) (unknown) (no (unknown) (unknown) Narrative: (units (unk nown) date) unknown) (unknown) (no (unknown) (unknown) Neurovascularly (units (unknown) date) intact. unknown) (unknown) (no (unknown) (unknown) No Action (units (unkn own) date) unknown) (unknown) (no (unknown) (unknown) No Known Drug (units ( unknown) date) Allergies Allergy unknown) Verified 10/16/21 10:41 (unknown) (no (unknown) (unknown) No significant (units (unknown) date) past surgical unknown) history (unknown) (no (unknown) (unknown) No symptoms of (units (unknown) date) cauda equina such unknown) as saddle anesthesia. (unknown) (no (unknown) (unknown) Noncontrast 3 mm (units (unknown) date) thick sections unknown) acquired through the region of interest in the (unknown) (no (unknown) (unknown) Ordered: (units (unkno wn) date) unknown) (unknown) (no (unknown) (unknown) Ordering (units (unkno wn) date) Provider: unknown) Flo Kingsley (unknown) (no (unknown) (unknown) Orders (units (unkno wn) date) unknown) (unknown) (no (unknown) (unknown) Other: (units (unkno wn) date) unknown) (unknown) (no (unknown) (unknown) Oxygen Delivery (units (unknown) date) Method 10/16/21 unknown) 10:36 (unknown) (no (unknown) (unknown) Oxygen Delivery (units (unknown) date) Method Room Air unknown) (unknown) (no (unknown) (unknown) PROCEDURE:? CT (units (unknown) date) THORACIC SPINE WO unknown) CON (unknown) (no (unknown) (unknown) PSYCHIATRIC: No (units (unknown) date) concerning unknown) psychosocial issues. (unknown) (no (unknown) (unknown) Patient History (units (unknown) date) unknown) (unknown) (no (unknown) (unknown) Patient: (units (unkno wn) date) Wm Sutton unknown) MR#: M (unknown) (no (unknown) (unknown) Patient: (units (unkno wn) date) Wm Sutton unknown) (unknown) (no (unknown) (unknown) Prescriptions: (units (unknown) date) unknown) (unknown) (no (unknown) (unknown) Procedure: CT (units ( unknown) date) thoracic spine wo unknown) con (unknown) (no (unknown) (unknown) Pulse Oximetry (units (unknown) date) 96 10/16/21 unknown) 10:36 (unknown) (no (unknown) (unknown) Pulse Oximetry 96 (units (unknown) date) unknown) (unknown) (no (unknown) (unknown) Pulse Rate 89 (units (unknown) date) 10/16/21 10:36 unknown) (unknown) (no (unknown) (unknown) Pulse Rate 89 (units ( unknown) date) unknown) (unknown) (no (unknown) (unknown) RESPIRATORY: (units (u nknown) date) Breath sounds unknown) equal and clear bilaterally. No wheezes, rales, or (unknown) (no (unknown) (unknown) RESPIRATORY: (units (u nknown) date) Denies dyspnea, unknown) cough, wheezing, sputum. (unknown) (no (unknown) (unknown) ROM is full and (units (unknown) date) without pain. unknown) (unknown) (no (unknown) (unknown) Referrals: (units (unk nown) date) unknown) (unknown) (no (unknown) (unknown) Related Data (units (u nknown) date) unknown) (unknown) (no (unknown) (unknown) Resistive (units (unkn own) date) strengths are unknown) within normal limits (unknown) (no (unknown) (unknown) Respiratory Rate (units (unknown) date) 14 10/16/21 unknown) 10:36 (unknown) (no (unknown) (unknown) Respiratory Rate (units (unknown) date) 14 unknown) (unknown) (no (unknown) (unknown) Review of Systems (units (unknown) date) unknown) (unknown) (no (unknown) (unknown) Reviewed (units (unkno wn) date) unknown) (unknown) (no (unknown) (unknown) SI joints (units (unkn own) date) nontender. unknown) (unknown) (no (unknown) (unknown) SKIN: Denies (units (u nknown) date) rash, skin unknown) lesions, or pruritis. (unknown) (no (unknown) (unknown) SKIN: Warm, dry, (units (unknown) date) no rashes or unknown) lesions noted. (unknown) (no (unknown) (unknown) Sensation is (units (u nknown) date) grossly intact. unknown) (unknown) (no (unknown) (unknown) Signed By: (units (unk nown) date) unknown) (unknown) (no (unknown) (unknown) Sister Healthy (units (unknown) date) adult unknown) (unknown) (no (unknown) (unknown) Smoking Status: (units (unknown) date) Current every day unknown) smoker (unknown) (no (unknown) (unknown) Smoking Status: (units (unknown) date) Current every day unknown) smoker (unknown) (no (unknown) (unknown) Social History (units (unknown) date) (Reviewed 10/16/21 unknown) @ 12:32 by LUIS Zaragoza) (unknown) (no (unknown) (unknown) Soft tissues:? No (units (unknown) date) paravertebral unknown) masses or hematomas.? Visualized posteromedial (unknown) (no (unknown) (unknown) Stated Complaint: (units (unknown) date) neck pain unknown) (unknown) (no (unknown) (unknown) Substance Use (units ( unknown) date) Type: does not use unknown) (unknown) (no (unknown) (unknown) Surgical History (units (unknown) date) (Reviewed 10/16/21 unknown) @ 12:32 by LUIS Zaragoza) (unknown) (no (unknown) (unknown) TECHNIQUE:? (units (un known) date) unknown) (unknown) (no (unknown) (unknown) Temperature 97.6 (units (unknown) date) F 10/16/21 10:36 unknown) (unknown) (no (unknown) (unknown) Temperature 97.6 (units (unknown) date) F unknown) (unknown) (no (unknown) (unknown) There is no CVA (units (unknown) date) tenderness. unknown) Paraspinous tenderness at T3-4 (unknown) (no (unknown) (unknown) There is no (units (un known) date) asymmetry, unknown) swelling, bruising or wound. (unknown) (no (unknown) (unknown) Time Seen by (units (u nknown) date) Provider: 10/16/21 unknown) 11:57 (unknown) (no (unknown) (unknown) Tobacco (units (unkno wn) date) dependence unknown) (unknown) (no (unknown) (unknown) Unremarkable? CT (units (unknown) date) thoracic spine unknown) without fracture or intrinsic osseous lesion. (unknown) (no (unknown) (unknown) Vital Signs (units (un known) date) unknown) (unknown) (no (unknown) (unknown) Vital signs: (units (u nknown) date) unknown) (unknown) (no (unknown) (unknown) alcohol intake (units (unknown) date) frequency: unknown) holidays/special occasions only (unknown) (no (unknown) (unknown) alcohol intake: (units (unknown) date) never unknown) (unknown) (no (unknown) (unknown) and neck pain x3 (units (unknown) date) days. Patient unknown) reports numbness and tingling of bilateral hands (unknown) (no (unknown) (unknown) appear clear.? (units (unknown) date) Subpleural blebs unknown) and fibrotic change noted in both lungs (unknown) (no (unknown) (unknown) but no hand (units (un known) date) numbness. unknown) (unknown) (no (unknown) (unknown) compression (units (un known) date) unknown) (unknown) (no (unknown) (unknown) constipation. (units ( unknown) date) unknown) (unknown) (no (unknown) (unknown) dizziness. (units (unk nown) date) unknown) (unknown) (no (unknown) (unknown) dose (units (unkno wn) date) unknown) (unknown) (no (unknown) (unknown) flank pain. (units (un known) date) unknown) (unknown) (no (unknown) (unknown) fractures.? No (units (unknown) date) suspicious unknown) sclerotic or lytic bony lesions.? Osseous central (unknown) (no (unknown) (unknown) household (units (unkn own) date) members: spouse unknown) and family (unknown) (no (unknown) (unknown) injuries to his (units (unknown) date) spinal column. No unknown) history of cancer. Patient appears much (unknown) (no (unknown) (unknown) intact, cap (units (un known) date) refill <2 sec. unknown) (unknown) (no (unknown) (unknown) is of normal (units (u nknown) date) overall caliber.? unknown) (unknown) (no (unknown) (unknown) levofloxacin 750 (units (unknown) date) mg tablet 750 mg unknown) PO DAILY #4 tabs 06/10/18 (unknown) (no (unknown) (unknown) lungs (units (unkno wn) date) unknown) (unknown) (no (unknown) (unknown) older than his (units (unknown) date) stated age. unknown) (unknown) (no (unknown) (unknown) rebound. No (units (un known) date) suprapubic pain. unknown) (unknown) (no (unknown) (unknown) reduction, the (units (unknown) date) following was unknown) used:? automated exposure control.? (unknown) (no (unknown) (unknown) rhonchi. No (units (u nknown) date) cough. No unknown) increased respiratory effort. No accessory muscle use. (unknown) (no (unknown) (unknown) spinal canal (units (u nknown) date) unknown) (unknown) (no (unknown) (unknown) spine.? Sagittal (units (unknown) date) and coronal unknown) reformats were then constructed.? For radiation (unknown) (no (unknown) (unknown) substance use (units ( unknown) date) type: does not unknown) use (unknown) (no (unknown) (unknown) that is not (units (un known) date) painful. Patient unknown) denies any trauma to that area or any previous (unknown) (no (unknown) (unknown) thoracic (units (unkno wn) date) unknown) (unknown) (no (unknown) (unknown) trapezius. (units (unk nown) date) Paraspinous unknown) tenderness at T3-4. Positive pain with Spurling's test (unknown) (no (unknown) (unknown) when lying on his (units (unknown) date) left side. unknown) Patient denies the ability to lay in a position Result panel 6 (unknown) (no (unknown) (unknown) (no value) (units (unk nown) date) unknown) (unknown) (no (unknown) (unknown) Radiologist's (units ( unknown) date) Impression: unknown) (unknown) (no (unknown) (unknown) *Please continue (units (unknown) date) to take your unknown) regular medications as directed. (unknown) (no (unknown) (unknown) Date of Service: (units (unknown) date) 10/16/21 unknown) (unknown) (no (unknown) (unknown) (no value) (units (unk nown) date) unknown) (unknown) (no (unknown) (unknown) <Electronically (units (unknown) date) signed by Flo Kingsley> (unknown) (no (unknown) (unknown) 10/16/21 1356 (units ( unknown) date) unknown) (unknown) (no (unknown) (unknown) 1 tab PO Q6H PRN (units (unknown) date) (Reason: pain) unknown) Qty: 10 0RF (unknown) (no (unknown) (unknown) [address] [place] [address] (units (unknown) date) unknown) (unknown) (no (unknown) (unknown) 500 mg PO TID PRN (units (unknown) date) (Reason: Neck unknown) pain) Qty: 18 0RF (unknown) (no (unknown) (unknown) 750 mg PO DAILY (units (unknown) date) Qty: 4 0RF unknown) (unknown) (no (unknown) (unknown) Allergies (units (unkn own) date) unknown) (unknown) (no (unknown) (unknown) [place], [place] (units ( unknown) date) [id number] unknown) (unknown) (no (unknown) (unknown) CT Scan Report (units (unknown) date) unknown) (unknown) (no (unknown) (unknown) ED Orders (units (unkn own) date) unknown) (unknown) (no (unknown) (unknown) Emergency Report (units (unknown) date) unknown) (unknown) (no (unknown) (unknown) [facility] (units (unknown) date) unknown) (unknown) (no (unknown) (unknown) [facility] (units (unknown) date) [address] [place] [address] unknown) [place] [address] (unknown) (no (unknown) (unknown) Previous Rx's (units ( unknown) date) unknown) (unknown) (no (unknown) (unknown) Signed (units (unkno wn) date) unknown) (unknown) (no (unknown) (unknown) Vital Signs - 8 (units (unknown) date) hr unknown) (unknown) (no (unknown) (unknown) [ ] New (units (unkno wn) date) medication unknown) prescriptions sent to your pharmacy: [ ] (unknown) (no (unknown) (unknown) [ ] No new (units (unk nown) date) medications given unknown) (unknown) (no (unknown) (unknown) [ x] New (units (unkno wn) date) medication written unknown) as a paper prescription (unknown) (no (unknown) (unknown) (no value) (units (unk nown) date) unknown) (unknown) (no (unknown) (unknown) levofloxacin 750 (units (unknown) date) mg tablet unknown) (unknown) (no (unknown) (unknown) methocarbamol 500 (units (unknown) date) mg tablet unknown) (unknown) (no (unknown) (unknown) oxycodone-acetami (units (unknown) date) nophen [Percocet] unknown) 5-325 mg tablet (unknown) (no (unknown) (unknown) 10/16/21 (units (unkno wn) date) unknown) (unknown) (no (unknown) (unknown) Medication (units (unk nown) date) Instructions unknown) Recorded (unknown) (no (unknown) (unknown) Strain of neck (units (unknown) date) muscle unknown) (unknown) (no (unknown) (unknown) tabs (units (unkno wn) date) unknown) (unknown) (no (unknown) (unknown) *If you do not (units (unknown) date) have a primary unknown) care provider please contact the [facility] (unknown) (no (unknown) (unknown) *Please follow up (units (unknown) date) with your primary unknown) care provider in 2-3 days, call for an (unknown) (no (unknown) (unknown) *What to do: (units (u nknown) date) unknown) (unknown) (no (unknown) (unknown) *You have been (units (unknown) date) diagnosed with unknown) right-sided neck strain. Your CT was normal. As (unknown) (no (unknown) (unknown) [id number] (units (unkn own) date) unknown) (unknown) (no (unknown) (unknown) 10/16/21 12:28 (units (unknown) date) unknown) (unknown) (no (unknown) (unknown) 10:36 (units (unkno wn) date) unknown) (unknown) (no (unknown) (unknown) 51-year-old male (units (unknown) date) presents to the unknown) emergency department with right-sided neck pain (unknown) (no (unknown) (unknown) 51-year-old male, (units (unknown) date) daily smoker, unknown) presents emergency department with upper back (unknown) (no (unknown) (unknown) ? (units (unkno wn) date) unknown) (unknown) (no (unknown) (unknown) ? Return to ER if (units (unknown) date) you should have unknown) any new, worsening or concerning symptoms, (unknown) (no (unknown) (unknown) Accession Number: (units (unknown) date) [id number] ?? unknown) (unknown) (no (unknown) (unknown) Acct:[id number] (units (unknown) date) unknown) (unknown) (no (unknown) (unknown) Activity (units (unkno wn) date) Restrictions/Addit unknown) ional Instructions: (unknown) (no (unknown) (unknown) Age/Sex: 51 / M (units (unknown) date) unknown) (unknown) (no (unknown) (unknown) Age/Sex: 51 / M (units (unknown) date) unknown) (unknown) (no (unknown) (unknown) Allergy/AdvReac (units (unknown) date) Type Severity unknown) Reaction Status Date / Time (unknown) (no (unknown) (unknown) Approved by: Chad (units (unknown) date) Kaylan Pfeiffer on unknown) 10/16/2021 at 12:44? 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 (unknown) (no (unknown) (unknown) Back/Spine/Pelvis (units (unknown) date) unknown) (unknown) (no (unknown) (unknown) Blood Pressure (units (unknown) date) 134/87 10/16/21 unknown) 10:36 (unknown) (no (unknown) (unknown) Blood Pressure (units (unknown) date) 134/87 unknown) (unknown) (no (unknown) (unknown) Bones:? There is (units (unknown) date) normal overall unknown) bony alignment.? No acute vertebral body (unknown) (no (unknown) (unknown) CARDIOVASCULAR: (units (unknown) date) Denies chest pain, unknown) palpitations, edema. (unknown) (no (unknown) (unknown) CARDIOVASCULAR: (units (unknown) date) Regular rate and unknown) rhythm without murmurs, peripheral pulses (unknown) (no (unknown) (unknown) COMPARISON:? (units (u nknown) date) None. unknown) (unknown) (no (unknown) (unknown) CT - Thoracic: (units (unknown) date) unknown) (unknown) (no (unknown) (unknown) CT thoracic spine (units (unknown) date) wo con Stat unknown) (unknown) (no (unknown) (unknown) Chief Complaint: (units (unknown) date) Neck Pain/Injury unknown) (unknown) (no (unknown) (unknown) Clinical (units (unkno wn) date) Impression: unknown) (unknown) (no (unknown) (unknown) Course (units (unkno wn) date) unknown) (unknown) (no (unknown) (unknown) : 1970 (units (unknown) date) Acct:[id number] unknown) (unknown) (no (unknown) (unknown) : 1970 (units (unknown) date) unknown) (unknown) (no (unknown) (unknown) Date of Service: (units (unknown) date) 10/16/21 unknown) (unknown) (no (unknown) (unknown) Departure (units (unkn own) date) unknown) (unknown) (no (unknown) (unknown) Discharge Plan (units (unknown) date) unknown) (unknown) (no (unknown) (unknown) ER Physician: (units ( unknown) date) Flo Kingsley unknown) (unknown) (no (unknown) (unknown) Exam (units (unkno wn) date) unknown) (unknown) (no (unknown) (unknown) Exam Narrative: (units (unknown) date) unknown) (unknown) (no (unknown) (unknown) FINDINGS:? (units (unk nown) date) unknown) (unknown) (no (unknown) (unknown) Family History (units (unknown) date) (Reviewed 10/16/21 unknown) @ 12:32 by LUIS Zaragoza) (unknown) (no (unknown) (unknown) Father Healthy (units (unknown) date) adult unknown) (unknown) (no (unknown) (unknown) GASTROINTESTINAL: (units (unknown) date) Abdomen soft, unknown) non-tender, nondistended without guarding or (unknown) (no (unknown) (unknown) GASTROINTESTINAL: (units (unknown) date) Denies nausea, unknown) vomiting, abdominal pain, diarrhea, (unknown) (no (unknown) (unknown) GENERAL: Denies (units (unknown) date) chills, fatigue, unknown) fever, sweats. See HPI (unknown) (no (unknown) (unknown) GENERAL: This is (units (unknown) date) a well-nourished, unknown) well-developed patient, in no acute distress (unknown) (no (unknown) (unknown) : Denies (units (un known) date) dysuria, unknown) frequency, incontinence, hematuria, urinary retention, (unknown) (no (unknown) (unknown) General (units (unkno wn) date) unknown) (unknown) (no (unknown) (unknown) HEAD: Atraumatic. (units (unknown) date) Normocephalic. unknown) (unknown) (no (unknown) (unknown) HEENT: Denies (units ( unknown) date) sinus pain, ear unknown) pain, sore throat, difficulty swallowing, (unknown) (no (unknown) (unknown) HPI - Neck (units (unk nown) date) Pain/Injury unknown) (unknown) (no (unknown) (unknown) HPI Narrative: (units (unknown) date) unknown) (unknown) (no (unknown) (unknown) Healthy adult (units ( unknown) date) male unknown) (unknown) (no (unknown) (unknown) History of (units (unk nown) date) Present Illness unknown) (unknown) (no (unknown) (unknown) IMPRESSION:? (units (u nknown) date) unknown) (unknown) (no (unknown) (unknown) INDICATIONS:? (units ( unknown) date) Pain unknown) (unknown) (no (unknown) (unknown) Image quality:? (units (unknown) date) Excellent.? 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 (unknown) (no (unknown) (unknown) Initial Vital (units ( unknown) date) Signs unknown) (unknown) (no (unknown) (unknown) Initial Vital (units ( unknown) date) Signs: unknown) (unknown) (no (unknown) (unknown) Instructions: DI (units (unknown) date) for Neck Pain unknown) (unknown) (no (unknown) (unknown) Loc: ED (units (unkno wn) date) unknown) (unknown) (no (unknown) (unknown) MDM - Neck (units (unk nown) date) Pain/Injury unknown) (unknown) (no (unknown) (unknown) MDM Narrative (units ( unknown) date) unknown) (unknown) (no (unknown) (unknown) MR#: [id number] (units (unknown) date) unknown) (unknown) (no (unknown) (unknown) MSK: Moves all (units (unknown) date) extremities. unknown) Normal range of motion, no clubbing or edema. (unknown) (no (unknown) (unknown) MSK: Denies (units (un known) date) weakness, joint unknown) pain, or bony pain. (unknown) (no (unknown) (unknown) Medical History (units (unknown) date) (Reviewed 10/16/21 unknown) @ 12:32 by LUIS Zaragoza) (unknown) (no (unknown) (unknown) Medical decision (units (unknown) date) making narrative: unknown) (unknown) (no (unknown) (unknown) Miscellaneous,Doc (units (unknown) date) MD luisito [Primary unknown) Care Provider] - (unknown) (no (unknown) (unknown) Mode of arrival: (units (unknown) date) Ambulatory unknown) (unknown) (no (unknown) (unknown) Mother Asthma (units (unknown) date) unknown) (unknown) (no (unknown) (unknown) NECK: Trachea (units ( unknown) date) midline. No JVD or unknown) lymphadenopathy. Tender and tight along right (unknown) (no (unknown) (unknown) NEURO: A+O x 3. (units (unknown) date) unknown) (unknown) (no (unknown) (unknown) NEUROLOGIC: (units (un known) date) Denies weakness, unknown) dizziness, headache, confusion. (unknown) (no (unknown) (unknown) Narrative (units (unkn own) date) unknown) (unknown) (no (unknown) (unknown) Narrative: (units (unk nown) date) unknown) (unknown) (no (unknown) (unknown) Neurovascularly (units (unknown) date) intact. unknown) (unknown) (no (unknown) (unknown) New (units (unkno wn) date) unknown) (unknown) (no (unknown) (unknown) No Action (units (unkn own) date) unknown) (unknown) (no (unknown) (unknown) No Known Drug (units ( unknown) date) Allergies Allergy unknown) Verified 10/16/21 10:41 (unknown) (no (unknown) (unknown) No significant (units (unknown) date) past surgical unknown) history (unknown) (no (unknown) (unknown) No symptoms of (units (unknown) date) cauda equina such unknown) as saddle anesthesia. (unknown) (no (unknown) (unknown) Noncontrast 3 mm (units (unknown) date) thick sections unknown) acquired through the region of interest in the (unknown) (no (unknown) (unknown) Ordered: (units (unkno wn) date) unknown) (unknown) (no (unknown) (unknown) Ordering (units (unkno wn) date) Provider: unknown) Flo Kingsley (unknown) (no (unknown) (unknown) Orders (units (unkno wn) date) unknown) (unknown) (no (unknown) (unknown) Other: (units (unkno wn) date) unknown) (unknown) (no (unknown) (unknown) Oxygen Delivery (units (unknown) date) Method 10/16/21 unknown) 10:36 (unknown) (no (unknown) (unknown) Oxygen Delivery (units (unknown) date) Method Room Air unknown) (unknown) (no (unknown) (unknown) PROCEDURE:? CT (units (unknown) date) THORACIC SPINE WO unknown) CON (unknown) (no (unknown) (unknown) PSYCHIATRIC: No (units (unknown) date) concerning unknown) psychosocial issues. (unknown) (no (unknown) (unknown) Patient (units (unkno wn) date) Disposition: Home unknown) (unknown) (no (unknown) (unknown) Patient History (units (unknown) date) unknown) (unknown) (no (unknown) (unknown) Patient: (units (unkno wn) date) Wm Sutton unknown) MR#: M (unknown) (no (unknown) (unknown) Patient: (units (unkno wn) date) Wm Sutton unknown) (unknown) (no (unknown) (unknown) Prescriptions: (units (unknown) date) unknown) (unknown) (no (unknown) (unknown) Procedure: CT (units ( unknown) date) thoracic spine wo unknown) con (unknown) (no (unknown) (unknown) Pulse Oximetry (units (unknown) date) 96 10/16/21 unknown) 10:36 (unknown) (no (unknown) (unknown) Pulse Oximetry 96 (units (unknown) date) unknown) (unknown) (no (unknown) (unknown) Pulse Rate 89 (units (unknown) date) 10/16/21 10:36 unknown) (unknown) (no (unknown) (unknown) Pulse Rate 89 (units ( unknown) date) unknown) (unknown) (no (unknown) (unknown) RESPIRATORY: (units (u nknown) date) Breath sounds unknown) equal and clear bilaterally. No wheezes, rales, or (unknown) (no (unknown) (unknown) RESPIRATORY: (units (u nknown) date) Denies dyspnea, unknown) cough, wheezing, sputum. (unknown) (no (unknown) (unknown) ROM is full and (units (unknown) date) without pain. unknown) (unknown) (no (unknown) (unknown) Referrals: (units (unk nown) date) unknown) (unknown) (no (unknown) (unknown) Related Data (units (u nknown) date) unknown) (unknown) (no (unknown) (unknown) Resistive (units (unkn own) date) strengths are unknown) within normal limits (unknown) (no (unknown) (unknown) Resource line at (units (unknown) date) [phone]. They unknown) will ask some questions about your medical (unknown) (no (unknown) (unknown) Respiratory Rate (units (unknown) date) 14 10/16/21 unknown) 10:36 (unknown) (no (unknown) (unknown) Respiratory Rate (units (unknown) date) 14 unknown) (unknown) (no (unknown) (unknown) Review of Systems (units (unknown) date) unknown) (unknown) (no (unknown) (unknown) Reviewed (units (unkno wn) date) unknown) (unknown) (no (unknown) (unknown) SI joints (units (unkn own) date) nontender. unknown) (unknown) (no (unknown) (unknown) SKIN: Denies (units (u nknown) date) rash, skin unknown) lesions, or pruritis. (unknown) (no (unknown) (unknown) SKIN: Warm, dry, (units (unknown) date) no rashes or unknown) lesions noted. (unknown) (no (unknown) (unknown) Sensation is (units (u nknown) date) grossly intact. unknown) (unknown) (no (unknown) (unknown) Signed By: (units (unk nown) date) unknown) (unknown) (no (unknown) (unknown) Sister Healthy (units (unknown) date) adult unknown) (unknown) (no (unknown) (unknown) Smoking Status: (units (unknown) date) Current every day unknown) smoker (unknown) (no (unknown) (unknown) Smoking Status: (units (unknown) date) Current every day unknown) smoker (unknown) (no (unknown) (unknown) Social History (units (unknown) date) (Reviewed 10/16/21 unknown) @ 12:32 by LUIS Zaragoza) (unknown) (no (unknown) (unknown) Soft tissues:? No (units (unknown) date) paravertebral unknown) masses or hematomas.? Visualized posteromedial (unknown) (no (unknown) (unknown) Stated Complaint: (units (unknown) date) neck pain unknown) (unknown) (no (unknown) (unknown) Substance Use (units ( unknown) date) Type: does not use unknown) (unknown) (no (unknown) (unknown) Surgical History (units (unknown) date) (Reviewed 10/16/21 unknown) @ 12:32 by LUIS Zaragoza) (unknown) (no (unknown) (unknown) TECHNIQUE:? (units (un known) date) unknown) (unknown) (no (unknown) (unknown) Temperature 97.6 (units (unknown) date) F 10/16/21 10:36 unknown) (unknown) (no (unknown) (unknown) Temperature 97.6 (units (unknown) date) F unknown) (unknown) (no (unknown) (unknown) There is no CVA (units (unknown) date) tenderness. unknown) Paraspinous tenderness at T3-4 (unknown) (no (unknown) (unknown) There is no (units (un known) date) asymmetry, unknown) swelling, bruising or wound. (unknown) (no (unknown) (unknown) Time Seen by (units (u nknown) date) Provider: 10/16/21 unknown) 11:57 (unknown) (no (unknown) (unknown) Tobacco (units (unkno wn) date) dependence unknown) (unknown) (no (unknown) (unknown) Unremarkable? CT (units (unknown) date) thoracic spine unknown) without fracture or intrinsic osseous lesion. (unknown) (no (unknown) (unknown) Vital Signs (units (un known) date) unknown) (unknown) (no (unknown) (unknown) Vital signs: (units (u nknown) date) unknown) (unknown) (no (unknown) (unknown) affected area, (units (unknown) date) take the muscle unknown) relaxers 3 times a day for the next 2-3 days and (unknown) (no (unknown) (unknown) alcohol intake (units (unknown) date) frequency: unknown) holidays/special occasions only (unknown) (no (unknown) (unknown) alcohol intake: (units (unknown) date) never unknown) (unknown) (no (unknown) (unknown) and neck pain x3 (units (unknown) date) days. Patient unknown) reports numbness and tingling of bilateral hands (unknown) (no (unknown) (unknown) appear clear.? (units (unknown) date) Subpleural blebs unknown) and fibrotic change noted in both lungs (unknown) (no (unknown) (unknown) appointment. Let (units (unknown) date) them know you were unknown) seen in the Emergency Department and that we (unknown) (no (unknown) (unknown) ask that you be (units (unknown) date) seen in follow up. unknown) We will electronically transmit a record of (unknown) (no (unknown) (unknown) breathing, fever (units (unknown) date) greater than 101 unknown) F, shaking chills, persistent vomiting to the (unknown) (no (unknown) (unknown) but no hand (units (un known) date) numbness. unknown) (unknown) (no (unknown) (unknown) chest pain, (units (un known) date) difficulty unknown) breathing, etc. please return to the emergency (unknown) (no (unknown) (unknown) compression (units (un known) date) unknown) (unknown) (no (unknown) (unknown) constipation. (units ( unknown) date) unknown) (unknown) (no (unknown) (unknown) department. (units (un known) date) Otherwise, please unknown) follow-up with your family doctor as needed. (unknown) (no (unknown) (unknown) dizziness. (units (unk nown) date) unknown) (unknown) (no (unknown) (unknown) dose (units (unkno wn) date) unknown) (unknown) (no (unknown) (unknown) flank pain. (units (un known) date) unknown) (unknown) (no (unknown) (unknown) fractures.? No (units (unknown) date) suspicious unknown) sclerotic or lytic bony lesions.? Osseous central (unknown) (no (unknown) (unknown) history and help (units (unknown) date) get you set up unknown) with a doctor in the community. (unknown) (no (unknown) (unknown) household (units (unkn own) date) members: spouse unknown) and family (unknown) (no (unknown) (unknown) injuries to his (units (unknown) date) spinal column. No unknown) history of cancer. Patient appears much (unknown) (no (unknown) (unknown) intact, cap (units (un known) date) refill <2 sec. unknown) (unknown) (no (unknown) (unknown) is of normal (units (u nknown) date) overall caliber.? unknown) (unknown) (no (unknown) (unknown) levofloxacin 750 (units (unknown) date) mg tablet 750 mg unknown) PO DAILY #4 tabs 06/10/18 (unknown) (no (unknown) (unknown) lungs (units (unkno wn) date) unknown) (unknown) (no (unknown) (unknown) methocarbamol 500 (units (unknown) date) mg tablet 500 mg unknown) PO TID PRN Neck pain #18 10/16/21 (unknown) (no (unknown) (unknown) mg tablet (units (unkn own) date) (Percocet) unknown) (unknown) (no (unknown) (unknown) of pain (units (unkno wn) date) medication. unknown) Discussed plan of care and return precautions with patient, (unknown) (no (unknown) (unknown) older than his (units (unknown) date) stated age. unknown) (unknown) (no (unknown) (unknown) oxycodone-acetami (units (unknown) date) nophen 5 mg-325 1 unknown) tab PO Q6H PRN pain #10 tabs 10/16/21 (unknown) (no (unknown) (unknown) point that you (units (unknown) date) cannot drink unknown) fluids, or other new or worsening symptoms. (unknown) (no (unknown) (unknown) rebound. No (units (un known) date) suprapubic pain. unknown) (unknown) (no (unknown) (unknown) reduction, the (units (unknown) date) following was unknown) used:? automated exposure control.? (unknown) (no (unknown) (unknown) rhonchi. No (units (u nknown) date) cough. No unknown) increased respiratory effort. No accessory muscle use. (unknown) (no (unknown) (unknown) right-sided neck (units (unknown) date) strain. Will unknown) treat with muscle relaxers and a limited course (unknown) (no (unknown) (unknown) spinal canal (units (u nknown) date) unknown) (unknown) (no (unknown) (unknown) spine.? Sagittal (units (unknown) date) and coronal unknown) reformats were then constructed.? For radiation (unknown) (no (unknown) (unknown) substance use (units ( unknown) date) type: does not unknown) use (unknown) (no (unknown) (unknown) such as worsening (units (unknown) date) pain, severe unknown) headache, confusion, chest pain, difficulty (unknown) (no (unknown) (unknown) that is not (units (un known) date) painful. Patient unknown) denies any trauma to that area or any previous (unknown) (no (unknown) (unknown) thoracic (units (unkno wn) date) unknown) (unknown) (no (unknown) (unknown) today's note if (units (unknown) date) your PCP is in our unknown) system (unknown) (no (unknown) (unknown) trapezius. (units (unk nown) date) Paraspinous unknown) tenderness at T3-4. Positive pain with Spurling's test (unknown) (no (unknown) (unknown) use the pain (units (u nknown) date) medication only as unknown) needed. For any worsening symptoms, such as (unknown) (no (unknown) (unknown) we discussed, I (units (unknown) date) recommend you rest unknown) the area, apply hot or cold compresses to the (unknown) (no (unknown) (unknown) when lying on his (units (unknown) date) left side. unknown) Patient denies the ability to lay in a position (unknown) (no (unknown) (unknown) who is agreeable (units (unknown) date) with course of unknown) action. (unknown) (no (unknown) (unknown) x3 days. (units (unkno wn) date) Assessment was unknown) unremarkable and CT was normal. Suspect patient has a Result panel 7 (unknown) (no (unknown) (unknown) (no value) (units (unk nown) date) unknown) (unknown) (no (unknown) (unknown) Radiologist's (units ( unknown) date) Impression: unknown) (unknown) (no (unknown) (unknown) *Please continue (units (unknown) date) to take your unknown) regular medications as directed. (unknown) (no (unknown) (unknown) Date of Service: (units (unknown) date) 10/16/21 unknown) (unknown) (no (unknown) (unknown) (no value) (units (unk nown) date) unknown) (unknown) (no (unknown) (unknown) <Electronically (units (unknown) date) signed by Flo Kingsley> (unknown) (no (unknown) (unknown) <Electronically (units (unknown) date) signed by Arpita Beverly unknown) Adán Magallon.OWalker> (unknown) (no (unknown) (unknown) <Electronically (units (unknown) date) signed by Arpita Beverly unknown) Paulino Mccain> (unknown) (no (unknown) (unknown) 10/16/21 1356 (units ( unknown) date) unknown) (unknown) (no (unknown) (unknown) 10/19/21 0849 (units ( unknown) date) unknown) (unknown) (no (unknown) (unknown) 1 tab PO Q6H PRN (units (unknown) date) (Reason: pain) unknown) Qty: 10 0RF (unknown) (no (unknown) (unknown) [address] [place] [address] (units (unknown) date) unknown) (unknown) (no (unknown) (unknown) 500 mg PO TID PRN (units (unknown) date) (Reason: Neck unknown) pain) Qty: 18 0RF (unknown) (no (unknown) (unknown) 750 mg PO DAILY (units (unknown) date) Qty: 4 0RF unknown) (unknown) (no (unknown) (unknown) Allergies (units (unkn own) date) unknown) (unknown) (no (unknown) (unknown) [place] (units ( unknown) date) [address] unknown) (unknown) (no (unknown) (unknown) CT Scan Report (units (unknown) date) unknown) (unknown) (no (unknown) (unknown) ED Orders (units (unkn own) date) unknown) (unknown) (no (unknown) (unknown) Emergency Report (units (unknown) date) unknown) (unknown) (no (unknown) (unknown) [facility] (units (unknown) date) unknown) (unknown) (no (unknown) (unknown) [facility] (units (unknown) date) [address] [place] [address] unknown) [place] [address] (unknown) (no (unknown) (unknown) Previous Rx's (units ( unknown) date) unknown) (unknown) (no (unknown) (unknown) Signed (units (unkno wn) date) unknown) (unknown) (no (unknown) (unknown) Vital Signs - 8 (units (unknown) date) hr unknown) (unknown) (no (unknown) (unknown) [ ] New (units (unkno wn) date) medication unknown) prescriptions sent to your pharmacy: [ ] (unknown) (no (unknown) (unknown) [ ] No new (units (unk nown) date) medications given unknown) (unknown) (no (unknown) (unknown) [ x] New (units (unkno wn) date) medication written unknown) as a paper prescription (unknown) (no (unknown) (unknown) (no value) (units (unk nown) date) unknown) (unknown) (no (unknown) (unknown) levofloxacin 750 (units (unknown) date) mg tablet unknown) (unknown) (no (unknown) (unknown) methocarbamol 500 (units (unknown) date) mg tablet unknown) (unknown) (no (unknown) (unknown) oxycodone-acetami (units (unknown) date) nophen [Percocet] unknown) 5-325 mg tablet (unknown) (no (unknown) (unknown) 10/16/21 (units (unkno wn) date) unknown) (unknown) (no (unknown) (unknown) Medication (units (unk nown) date) Instructions unknown) Recorded (unknown) (no (unknown) (unknown) Strain of neck (units (unknown) date) muscle unknown) (unknown) (no (unknown) (unknown) tabs (units (unkno wn) date) unknown) (unknown) (no (unknown) (unknown) <Flo Kingsley, (units (unknown) date) RELAY DISPATCHER - Last Filed: unknown) 10/16/21 13:56> (unknown) (no (unknown) (unknown) <Arpita Mccain, (units (unknown) date) DO - Last Filed: unknown) 10/19/21 08:49> (unknown) (no (unknown) (unknown) <geovanna> (units (unk nown) date) unknown) (unknown) (no (unknown) (unknown) *If you do not (units (unknown) date) have a primary unknown) care provider please contact the [facility] (unknown) (no (unknown) (unknown) *Please follow up (units (unknown) date) with your primary unknown) care provider in 2-3 days, call for an (unknown) (no (unknown) (unknown) *What to do: (units (u nknown) date) unknown) (unknown) (no (unknown) (unknown) *You have been (units (unknown) date) diagnosed with unknown) right-sided neck strain. Your CT was normal. As (unknown) (no (unknown) (unknown) [id number] (units (unkn own) date) unknown) (unknown) (no (unknown) (unknown) 10/16/21 12:28 (units (unknown) date) unknown) (unknown) (no (unknown) (unknown) 10:36 (units (unkno wn) date) unknown) (unknown) (no (unknown) (unknown) 51-year-old male (units (unknown) date) presents to the unknown) emergency department with right-sided neck pain (unknown) (no (unknown) (unknown) 51-year-old male, (units (unknown) date) daily smoker, unknown) presents emergency department with upper back (unknown) (no (unknown) (unknown) ? (units (unkno wn) date) unknown) (unknown) (no (unknown) (unknown) ? Return to ER if (units (unknown) date) you should have unknown) any new, worsening or concerning symptoms, (unknown) (no (unknown) (unknown) Accession Number: (units (unknown) date) [id number] ?? unknown) (unknown) (no (unknown) (unknown) Acct:[id number] (units (unknown) date) unknown) (unknown) (no (unknown) (unknown) Activity (units (unkno wn) date) Restrictions/Addit unknown) ional Instructions: (unknown) (no (unknown) (unknown) Age/Sex: 51 / M (units (unknown) date) unknown) (unknown) (no (unknown) (unknown) Age/Sex: 51 / M (units (unknown) date) unknown) (unknown) (no (unknown) (unknown) Allergy/AdvReac (units (unknown) date) Type Severity unknown) Reaction Status Date / Time (unknown) (no (unknown) (unknown) Approved by: Chad Tejedaunits (unknown) datePaulie Pfeiffer M.D. on unknown) 10/16/2021 at 12:44? 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 (unknown) (no (unknown) (unknown) Back/Spine/Pelvis (units (unknown) date) unknown) (unknown) (no (unknown) (unknown) Blood Pressure (units (unknown) date) 134/87 10/16/21 unknown) 10:36 (unknown) (no (unknown) (unknown) Blood Pressure (units (unknown) date) 134/87 unknown) (unknown) (no (unknown) (unknown) Bones:? There is (units (unknown) date) normal overall unknown) bony alignment.? No acute vertebral body (unknown) (no (unknown) (unknown) CARDIOVASCULAR: (units (unknown) date) Denies chest pain, unknown) palpitations, edema. (unknown) (no (unknown) (unknown) CARDIOVASCULAR: (units (unknown) date) Regular rate and unknown) rhythm without murmurs, peripheral pulses (unknown) (no (unknown) (unknown) COMPARISON:? (units (u nknown) date) None. unknown) (unknown) (no (unknown) (unknown) CT - Thoracic: (units (unknown) date) unknown) (unknown) (no (unknown) (unknown) CT thoracic spine (units (unknown) date) wo con Stat unknown) (unknown) (no (unknown) (unknown) Chief Complaint: (units (unknown) date) Neck Pain/Injury unknown) (unknown) (no (unknown) (unknown) Clinical (units (unkno wn) date) Impression: unknown) (unknown) (no (unknown) (unknown) Cosign (units (unkno wn) date) unknown) (unknown) (no (unknown) (unknown) Course (units (unkno wn) date) unknown) (unknown) (no (unknown) (unknown) : 1970 (units (unknown) date) Acct:[id number] unknown) (unknown) (no (unknown) (unknown) : 1970 (units (unknown) date) unknown) (unknown) (no (unknown) (unknown) Date of Service: (units (unknown) date) 10/16/21 unknown) (unknown) (no (unknown) (unknown) Departure (units (unkn own) date) unknown) (unknown) (no (unknown) (unknown) Discharge Plan (units (unknown) date) unknown) (unknown) (no (unknown) (unknown) ED Attending (units (u nknown) date) Cosignature unknown) Attestation: (unknown) (no (unknown) (unknown) ER Physician: (units ( unknown) date) Flo Kingsley unknown) (unknown) (no (unknown) (unknown) Exam (units (unkno wn) date) unknown) (unknown) (no (unknown) (unknown) Exam Narrative: (units (unknown) date) unknown) (unknown) (no (unknown) (unknown) FINDINGS:? (units (unk nown) date) unknown) (unknown) (no (unknown) (unknown) Family History (units (unknown) date) (Reviewed 10/16/21 unknown) @ 12:32 by LUIS Zaragoza) (unknown) (no (unknown) (unknown) Father Healthy (units (unknown) date) adult unknown) (unknown) (no (unknown) (unknown) GASTROINTESTINAL: (units (unknown) date) Abdomen soft, unknown) non-tender, nondistended without guarding or (unknown) (no (unknown) (unknown) GASTROINTESTINAL: (units (unknown) date) Denies nausea, unknown) vomiting, abdominal pain, diarrhea, (unknown) (no (unknown) (unknown) GENERAL: Denies (units (unknown) date) chills, fatigue, unknown) fever, sweats. See HPI (unknown) (no (unknown) (unknown) GENERAL: This is (units (unknown) date) a well-nourished, unknown) well-developed patient, in no acute distress (unknown) (no (unknown) (unknown) : Denies (units (un known) date) dysuria, unknown) frequency, incontinence, hematuria, urinary retention, (unknown) (no (unknown) (unknown) General (units (unkno wn) date) unknown) (unknown) (no (unknown) (unknown) HEAD: Atraumatic. (units (unknown) date) Normocephalic. unknown) (unknown) (no (unknown) (unknown) HEENT: Denies (units ( unknown) date) sinus pain, ear unknown) pain, sore throat, difficulty swallowing, (unknown) (no (unknown) (unknown) HPI - Neck (units (unk nown) date) Pain/Injury unknown) (unknown) (no (unknown) (unknown) HPI Narrative: (units (unknown) date) unknown) (unknown) (no (unknown) (unknown) Healthy adult (units ( unknown) date) male unknown) (unknown) (no (unknown) (unknown) History of (units (unk nown) date) Present Illness unknown) (unknown) (no (unknown) (unknown) I was immediately (units (unknown) date) available in the unknown) department for consultation. Documentation (unknown) (no (unknown) (unknown) IMPRESSION:? (units (u nknown) date) unknown) (unknown) (no (unknown) (unknown) INDICATIONS:? (units ( unknown) date) Pain unknown) (unknown) (no (unknown) (unknown) Image quality:? (units (unknown) date) Excellent.? 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 (unknown) (no (unknown) (unknown) Initial Vital (units ( unknown) date) Signs unknown) (unknown) (no (unknown) (unknown) Initial Vital (units ( unknown) date) Signs: unknown) (unknown) (no (unknown) (unknown) Instructions: DI (units (unknown) date) for Neck Pain unknown) (unknown) (no (unknown) (unknown) Loc: ED (units (unkno wn) date) unknown) (unknown) (no (unknown) (unknown) MDM - Neck (units (unk nown) date) Pain/Injury unknown) (unknown) (no (unknown) (unknown) MDM Narrative (units ( unknown) date) unknown) (unknown) (no (unknown) (unknown) MR#: [id number] (units (unknown) date) unknown) (unknown) (no (unknown) (unknown) MSK: Moves all (units (unknown) date) extremities. unknown) Normal range of motion, no clubbing or edema. (unknown) (no (unknown) (unknown) MSK: Denies (units (un known) date) weakness, joint unknown) pain, or bony pain. (unknown) (no (unknown) (unknown) Medical History (units (unknown) date) (Reviewed 10/16/21 unknown) @ 12:32 by LUIS Zaragoza) (unknown) (no (unknown) (unknown) Medical decision (units (unknown) date) making narrative: unknown) (unknown) (no (unknown) (unknown) Miscellaneous,Doc (units (unknown) date) tor, MD [Primary unknown) Care Provider] - (unknown) (no (unknown) (unknown) Mode of arrival: (units (unknown) date) Ambulatory unknown) (unknown) (no (unknown) (unknown) Mother Asthma (units (unknown) date) unknown) (unknown) (no (unknown) (unknown) NECK: Trachea (units ( unknown) date) midline. No JVD or unknown) lymphadenopathy. Tender and tight along right (unknown) (no (unknown) (unknown) NEURO: A+O x 3. (units (unknown) date) unknown) (unknown) (no (unknown) (unknown) NEUROLOGIC: (units (un known) date) Denies weakness, unknown) dizziness, headache, confusion. (unknown) (no (unknown) (unknown) Narrative (units (unkn own) date) unknown) (unknown) (no (unknown) (unknown) Narrative: (units (unk nown) date) unknown) (unknown) (no (unknown) (unknown) Neurovascularly (units (unknown) date) intact. unknown) (unknown) (no (unknown) (unknown) New (units (unkno wn) date) unknown) (unknown) (no (unknown) (unknown) No Action (units (unkn own) date) unknown) (unknown) (no (unknown) (unknown) No Known Drug (units ( unknown) date) Allergies Allergy unknown) Verified 10/16/21 10:41 (unknown) (no (unknown) (unknown) No significant (units (unknown) date) past surgical unknown) history (unknown) (no (unknown) (unknown) No symptoms of (units (unknown) date) cauda equina such unknown) as saddle anesthesia. (unknown) (no (unknown) (unknown) Noncontrast 3 mm (units (unknown) date) thick sections unknown) acquired through the region of interest in the (unknown) (no (unknown) (unknown) Ordered: (units (unkno wn) date) unknown) (unknown) (no (unknown) (unknown) Ordering (units (unkno wn) date) Provider: unknown) Flo Kingsley (unknown) (no (unknown) (unknown) Orders (units (unkno wn) date) unknown) (unknown) (no (unknown) (unknown) Other: (units (unkno wn) date) unknown) (unknown) (no (unknown) (unknown) Oxygen Delivery (units (unknown) date) Method 10/16/21 unknown) 10:36 (unknown) (no (unknown) (unknown) Oxygen Delivery (units (unknown) date) Method Room Air unknown) (unknown) (no (unknown) (unknown) PROCEDURE:? CT (units (unknown) date) THORACIC SPINE WO unknown) CON (unknown) (no (unknown) (unknown) PSYCHIATRIC: No (units (unknown) date) concerning unknown) psychosocial issues. (unknown) (no (unknown) (unknown) Patient (units (unkno wn) date) Disposition: Home unknown) (unknown) (no (unknown) (unknown) Patient History (units (unknown) date) unknown) (unknown) (no (unknown) (unknown) Patient: (units (unkno wn) date) Wm Sutton unknown) MR#: M (unknown) (no (unknown) (unknown) Patient: (units (unkno wn) date) Wm Sutton unknown) (unknown) (no (unknown) (unknown) Prescriptions: (units (unknown) date) unknown) (unknown) (no (unknown) (unknown) Procedure: CT (units ( unknown) date) thoracic spine wo unknown) con (unknown) (no (unknown) (unknown) Pulse Oximetry (units (unknown) date) 96 10/16/21 unknown) 10:36 (unknown) (no (unknown) (unknown) Pulse Oximetry 96 (units (unknown) date) unknown) (unknown) (no (unknown) (unknown) Pulse Rate 89 (units (unknown) date) 10/16/21 10:36 unknown) (unknown) (no (unknown) (unknown) Pulse Rate 89 (units ( unknown) date) unknown) (unknown) (no (unknown) (unknown) RESPIRATORY: (units (u nknown) date) Breath sounds unknown) equal and clear bilaterally. No wheezes, rales, or (unknown) (no (unknown) (unknown) RESPIRATORY: (units (u nknown) date) Denies dyspnea, unknown) cough, wheezing, sputum. (unknown) (no (unknown) (unknown) ROM is full and (units (unknown) date) without pain. unknown) (unknown) (no (unknown) (unknown) Referrals: (units (unk nown) date) unknown) (unknown) (no (unknown) (unknown) Related Data (units (u nknown) date) unknown) (unknown) (no (unknown) (unknown) Resistive (units (unkn own) date) strengths are unknown) within normal limits (unknown) (no (unknown) (unknown) Resource line at (units (unknown) date) [phone]. They unknown) will ask some questions about your medical (unknown) (no (unknown) (unknown) Respiratory Rate (units (unknown) date) 14 10/16/21 unknown) 10:36 (unknown) (no (unknown) (unknown) Respiratory Rate (units (unknown) date) 14 unknown) (unknown) (no (unknown) (unknown) Review of Systems (units (unknown) date) unknown) (unknown) (no (unknown) (unknown) Reviewed (units (unkno wn) date) unknown) (unknown) (no (unknown) (unknown) SI joints (units (unkn own) date) nontender. unknown) (unknown) (no (unknown) (unknown) SKIN: Denies (units (u nknown) date) rash, skin unknown) lesions, or pruritis. (unknown) (no (unknown) (unknown) SKIN: Warm, dry, (units (unknown) date) no rashes or unknown) lesions noted. (unknown) (no (unknown) (unknown) Sensation is (units (u nknown) date) grossly intact. unknown) (unknown) (no (unknown) (unknown) Signed By: (units (unk nown) date) unknown) (unknown) (no (unknown) (unknown) Sister Healthy (units (unknown) date) adult unknown) (unknown) (no (unknown) (unknown) Smoking Status: (units (unknown) date) Current every day unknown) smoker (unknown) (no (unknown) (unknown) Smoking Status: (units (unknown) date) Current every day unknown) smoker (unknown) (no (unknown) (unknown) Social History (units (unknown) date) (Reviewed 10/16/21 unknown) @ 12:32 by LUIS Zaragoza) (unknown) (no (unknown) (unknown) Soft tissues:? No (units (unknown) date) paravertebral unknown) masses or hematomas.? Visualized posteromedial (unknown) (no (unknown) (unknown) Stated Complaint: (units (unknown) date) neck pain unknown) (unknown) (no (unknown) (unknown) Substance Use (units ( unknown) date) Type: does not use unknown) (unknown) (no (unknown) (unknown) Surgical History (units (unknown) date) (Reviewed 10/16/21 unknown) @ 12:32 by LUIS Zaragoza) (unknown) (no (unknown) (unknown) TECHNIQUE:? (units (un known) date) unknown) (unknown) (no (unknown) (unknown) Temperature 97.6 (units (unknown) date) F 10/16/21 10:36 unknown) (unknown) (no (unknown) (unknown) Temperature 97.6 (units (unknown) date) F unknown) (unknown) (no (unknown) (unknown) There is no CVA (units (unknown) date) tenderness. unknown) Paraspinous tenderness at T3-4 (unknown) (no (unknown) (unknown) There is no (units (un known) date) asymmetry, unknown) swelling, bruising or wound. (unknown) (no (unknown) (unknown) Time Seen by (units (u nknown) date) Provider: 10/16/21 unknown) 11:57 (unknown) (no (unknown) (unknown) Tobacco (units (unkno wn) date) dependence unknown) (unknown) (no (unknown) (unknown) Unremarkable? CT (units (unknown) date) thoracic spine unknown) without fracture or intrinsic osseous lesion. (unknown) (no (unknown) (unknown) Visit Report (units (u nknown) date) Forms: Patient unknown) Portal/API (unknown) (no (unknown) (unknown) Vital Signs (units (un known) date) unknown) (unknown) (no (unknown) (unknown) Vital signs: (units (u nknown) date) unknown) (unknown) (no (unknown) (unknown) affected area, (units (unknown) date) take the muscle unknown) relaxers 3 times a day for the next 2-3 days and (unknown) (no (unknown) (unknown) alcohol intake (units (unknown) date) frequency: unknown) holidays/special occasions only (unknown) (no (unknown) (unknown) alcohol intake: (units (unknown) date) never unknown) (unknown) (no (unknown) (unknown) and neck pain x3 (units (unknown) date) days. Patient unknown) reports numbness and tingling of bilateral hands (unknown) (no (unknown) (unknown) appear clear.? (units (unknown) date) Subpleural blebs unknown) and fibrotic change noted in both lungs (unknown) (no (unknown) (unknown) appointment. Let (units (unknown) date) them know you were unknown) seen in the Emergency Department and that we (unknown) (no (unknown) (unknown) ask that you be (units (unknown) date) seen in follow up. unknown) We will electronically transmit a record of (unknown) (no (unknown) (unknown) breathing, fever (units (unknown) date) greater than 101 unknown) F, shaking chills, persistent vomiting to the (unknown) (no (unknown) (unknown) but no hand (units (un known) date) numbness. unknown) (unknown) (no (unknown) (unknown) chest pain, (units (un known) date) difficulty unknown) breathing, etc. please return to the emergency (unknown) (no (unknown) (unknown) compression (units (un known) date) unknown) (unknown) (no (unknown) (unknown) constipation. (units ( unknown) date) unknown) (unknown) (no (unknown) (unknown) department. (units (un known) date) Otherwise, please unknown) follow-up with your family doctor as needed. (unknown) (no (unknown) (unknown) dizziness. (units (unk nown) date) unknown) (unknown) (no (unknown) (unknown) dose (units (unkno wn) date) unknown) (unknown) (no (unknown) (unknown) flank pain. (units (un known) date) unknown) (unknown) (no (unknown) (unknown) fractures.? No (units (unknown) date) suspicious unknown) sclerotic or lytic bony lesions.? Osseous central (unknown) (no (unknown) (unknown) has been (units (unkno wn) date) reviewed. Case unknown) was discussed. (unknown) (no (unknown) (unknown) history and help (units (unknown) date) get you set up unknown) with a doctor in the community. (unknown) (no (unknown) (unknown) household (units (unkn own) date) members: spouse unknown) and family (unknown) (no (unknown) (unknown) injuries to his (units (unknown) date) spinal column. No unknown) history of cancer. Patient appears much (unknown) (no (unknown) (unknown) intact, cap (units (un known) date) refill <2 sec. unknown) (unknown) (no (unknown) (unknown) is of normal (units (u nknown) date) overall caliber.? unknown) (unknown) (no (unknown) (unknown) levofloxacin 750 (units (unknown) date) mg tablet 750 mg unknown) PO DAILY #4 tabs 06/10/18 (unknown) (no (unknown) (unknown) lungs (units (unkno wn) date) unknown) (unknown) (no (unknown) (unknown) methocarbamol 500 (units (unknown) date) mg tablet 500 mg unknown) PO TID PRN Neck pain #18 10/16/21 (unknown) (no (unknown) (unknown) mg tablet (units (unkn own) date) (Percocet) unknown) (unknown) (no (unknown) (unknown) of pain (units (unkno wn) date) medication. unknown) Discussed plan of care and return precautions with patient, (unknown) (no (unknown) (unknown) older than his (units (unknown) date) stated age. unknown) (unknown) (no (unknown) (unknown) oxycodone-acetami (units (unknown) date) nophen 5 mg-325 1 unknown) tab PO Q6H PRN pain #10 tabs 10/16/21 (unknown) (no (unknown) (unknown) point that you (units (unknown) date) cannot drink unknown) fluids, or other new or worsening symptoms. (unknown) (no (unknown) (unknown) rebound. No (units (un known) date) suprapubic pain. unknown) (unknown) (no (unknown) (unknown) reduction, the (units (unknown) date) following was unknown) used:? automated exposure control.? (unknown) (no (unknown) (unknown) rhonchi. No (units (u nknown) date) cough. No unknown) increased respiratory effort. No accessory muscle use. (unknown) (no (unknown) (unknown) right-sided neck (units (unknown) date) strain. Will unknown) treat with muscle relaxers and a limited course (unknown) (no (unknown) (unknown) spinal canal (units (u nknown) date) unknown) (unknown) (no (unknown) (unknown) spine.? Sagittal (units (unknown) date) and coronal unknown) reformats were then constructed.? For radiation (unknown) (no (unknown) (unknown) substance use (units ( unknown) date) type: does not unknown) use (unknown) (no (unknown) (unknown) such as worsening (units (unknown) date) pain, severe unknown) headache, confusion, chest pain, difficulty (unknown) (no (unknown) (unknown) that is not (units (un known) date) painful. Patient unknown) denies any trauma to that area or any previous (unknown) (no (unknown) (unknown) thoracic (units (unkno wn) date) unknown) (unknown) (no (unknown) (unknown) today's note if (units (unknown) date) your PCP is in our unknown) system (unknown) (no (unknown) (unknown) trapezius. (units (unk nown) date) Paraspinous unknown) tenderness at T3-4. Positive pain with Spurling's test (unknown) (no (unknown) (unknown) use the pain (units (u nknown) date) medication only as unknown) needed. For any worsening symptoms, such as (unknown) (no (unknown) (unknown) we discussed, I (units (unknown) date) recommend you rest unknown) the area, apply hot or cold compresses to the (unknown) (no (unknown) (unknown) when lying on his (units (unknown) date) left side. unknown) Patient denies the ability to lay in a position (unknown) (no (unknown) (unknown) who is agreeable (units (unknown) date) with course of unknown) action. (unknown) (no (unknown) (unknown) x3 days. (units (unkno wn) date) Assessment was unknown) unremarkable and CT was normal. Suspect patient has a Result panel 8 (unknown) (no (unknown) (unknown) (no value) (units (unk nown) date) unknown) (unknown) (no (unknown) (unknown) [id number] (units (unkn own) date) unknown) (unknown) (no (unknown) (unknown) 05:25 11/08/21 (units (unknown) date) unknown) (unknown) (no (unknown) (unknown) 05:27 11/08/21 (units (unknown) date) unknown) (unknown) (no (unknown) (unknown) 05:30 (units (unkno wn) date) unknown) (unknown) (no (unknown) (unknown) 05:32 11/08/21 (units (unknown) date) unknown) (unknown) (no (unknown) (unknown) 05:34 11/08/21 (units (unknown) date) unknown) (unknown) (no (unknown) (unknown) 05:34 (units (unkno wn) date) unknown) (unknown) (no (unknown) (unknown) 05:35 11/08/21 (units (unknown) date) unknown) (unknown) (no (unknown) (unknown) 05:35 (units (unkno wn) date) unknown) (unknown) (no (unknown) (unknown) 05:37 (units (unkno wn) date) unknown) (unknown) (no (unknown) (unknown) 11/08/21 (units (unkno wn) date) unknown) (unknown) (no (unknown) (unknown) 1 tab PO Q6H PRN (units (unknown) date) (Reason: pain) unknown) Qty: 10 0RF (unknown) (no (unknown) (unknown) 500 mg PO TID (units ( unknown) date) PRN (Reason: Neck unknown) pain) Qty: 18 0RF (unknown) (no (unknown) (unknown) 750 mg PO DAILY (units (unknown) date) Qty: 4 0RF unknown) (unknown) (no (unknown) (unknown) Age/Sex: 51 / M (units (unknown) date) unknown) (unknown) (no (unknown) (unknown) Allergies (units (unkn own) date) unknown) (unknown) (no (unknown) (unknown) Allergy/AdvReac (units (unknown) date) Type Severity unknown) Reaction Status Date / Time (unknown) (no (unknown) (unknown) Blood Pressure (units (unknown) date) 11/08/21 unknown) 05:25 (unknown) (no (unknown) (unknown) Blood Pressure (units (unknown) date) unknown) (unknown) (no (unknown) (unknown) Blood Pressure (units (unknown) date) 116 unknown) (unknown) (no (unknown) (unknown) Blood Pressure (units (unknown) date) unknown) (unknown) (no (unknown) (unknown) Blood Pressure (units (unknown) date) [Orthostatic unknown) Lying] (unknown) (no (unknown) (unknown) Blood Pressure (units (unknown) date) [Orthostatic unknown) Lying] (unknown) (no (unknown) (unknown) Blood Pressure (units (unknown) date) [Orthostatic unknown) Sitting] (unknown) (no (unknown) (unknown) Blood Pressure (units (unknown) date) [Orthostatic unknown) Sitting] (unknown) (no (unknown) (unknown) Blood Pressure (units (unknown) date) [Orthostatic unknown) Standing] (unknown) (no (unknown) (unknown) Blood Pressure (units (unknown) date) [Orthostatic unknown) Standing] (unknown) (no (unknown) (unknown) Blood Pressure (units (unknown) date) unknown) (unknown) (no (unknown) (unknown) Chief Complaint: (units (unknown) date) Fall unknown) (unknown) (no (unknown) (unknown) Course (units (unkno wn) date) unknown) (unknown) (no (unknown) (unknown) : 1970 (units (unknown) date) Acct:[id number] unknown) (unknown) (no (unknown) (unknown) Date of Service: (units (unknown) date) 11/08/21 unknown) (unknown) (no (unknown) (unknown) Departure (units (unkn own) date) unknown) (unknown) (no (unknown) (unknown) Discharge Plan (units (unknown) date) unknown) (unknown) (no (unknown) (unknown) ER Physician: (units ( unknown) date) Arpita Mccain unknown) D.O. (unknown) (no (unknown) (unknown) Emergency Report (units (unknown) date) unknown) (unknown) (no (unknown) (unknown) Exam (units (unkno wn) date) unknown) (unknown) (no (unknown) (unknown) Family History (units (unknown) date) (Reviewed unknown) 11/08/21 @ 05:42 by Arpita Mccain DO) (unknown) (no (unknown) (unknown) Father Healthy (units (unknown) date) adult unknown) (unknown) (no (unknown) (unknown) General (units (unkno wn) date) unknown) (unknown) (no (unknown) (unknown) HPI - Fall (units (unk nown) date) unknown) (unknown) (no (unknown) (unknown) Healthy adult (units ( unknown) date) male unknown) (unknown) (no (unknown) (unknown) Initial Vital (units ( unknown) date) Signs unknown) (unknown) (no (unknown) (unknown) Initial Vital (units ( unknown) date) Signs: unknown) (unknown) (no (unknown) (unknown) [facility] (units (unknown) date) [address] [place] [address] unknown) [place] [address] (unknown) (no (unknown) (unknown) Limitations: no (units (unknown) date) limitations unknown) (unknown) (no (unknown) (unknown) Medical History (units (unknown) date) (Reviewed unknown) 11/08/21 @ 05:42 by Arpita Mccain DO) (unknown) (no (unknown) (unknown) Medication (units (unk nown) date) Instructions unknown) Recorded (unknown) (no (unknown) (unknown) Miscellaneous,Do (units (unknown) date) MD may [Primary unknown) Care Provider] (unknown) (no (unknown) (unknown) Mode of arrival: (units (unknown) date) Ambulatory unknown) (unknown) (no (unknown) (unknown) Mother Asthma (units ( unknown) date) unknown) (unknown) (no (unknown) (unknown) No Action (units (unkn own) date) unknown) (unknown) (no (unknown) (unknown) No Known Drug (units ( unknown) date) Allergies Allergy unknown) Verified 10/16/21 10:41 (unknown) (no (unknown) (unknown) No significant (units (unknown) date) past surgical unknown) history (unknown) (no (unknown) (unknown) Oxygen Delivery (units (unknown) date) Method 11/08/21 unknown) 05:25 (unknown) (no (unknown) (unknown) Oxygen Delivery (units (unknown) date) Method Room Air unknown) (unknown) (no (unknown) (unknown) Oxygen Delivery (units (unknown) date) Method unknown) (unknown) (no (unknown) (unknown) Patient History (units (unknown) date) unknown) (unknown) (no (unknown) (unknown) Patient: (units (unkno wn) date) Wm Sutton unknown) MR#: M (unknown) (no (unknown) (unknown) Prescriptions: (units (unknown) date) unknown) (unknown) (no (unknown) (unknown) Previous Rx's (units ( unknown) date) unknown) (unknown) (no (unknown) (unknown) Pulse Oximetry (units (unknown) date) 97 97 unknown) (unknown) (no (unknown) (unknown) Pulse Oximetry (units (unknown) date) 97 unknown) (unknown) (no (unknown) (unknown) Pulse Oximetry (units (unknown) date) 99 11/08/21 05:25 unknown) (unknown) (no (unknown) (unknown) Pulse Oximetry (units (unknown) date) 99 97 97 unknown) (unknown) (no (unknown) (unknown) Pulse Oximetry (units (unknown) date) unknown) (unknown) (no (unknown) (unknown) Pulse Rate 79 87 (units (unknown) date) unknown) (unknown) (no (unknown) (unknown) Pulse Rate 88 (units ( unknown) date) 11/08/21 05:25 unknown) (unknown) (no (unknown) (unknown) Pulse Rate 88 88 (units (unknown) date) 86 unknown) (unknown) (no (unknown) (unknown) Pulse Rate 91 H (units (unknown) date) unknown) (unknown) (no (unknown) (unknown) Pulse Rate (units (unk nown) date) [Orthostatic unknown) Lying] 78 (unknown) (no (unknown) (unknown) Pulse Rate (units (unk nown) date) [Orthostatic unknown) Lying] (unknown) (no (unknown) (unknown) Pulse Rate (units (unk nown) date) [Orthostatic unknown) Sitting] 75 (unknown) (no (unknown) (unknown) Pulse Rate (units (unk nown) date) [Orthostatic unknown) Sitting] (unknown) (no (unknown) (unknown) Pulse Rate (units (unk nown) date) [Orthostatic unknown) Standing] 95 H (unknown) (no (unknown) (unknown) Pulse Rate (units (unk nown) date) [Orthostatic unknown) Standing] (unknown) (no (unknown) (unknown) Pulse Rate (units (unk nown) date) unknown) (unknown) (no (unknown) (unknown) ROS Unobtainable: (units (unknown) date) All systems unknown) reviewed + are unremarkable except as noted in HPI (unknown) (no (unknown) (unknown) Referrals: (units (unk nown) date) unknown) (unknown) (no (unknown) (unknown) Related Data (units (u nknown) date) unknown) (unknown) (no (unknown) (unknown) Respiratory Rate (units (unknown) date) 18 11/08/21 05:25 unknown) (unknown) (no (unknown) (unknown) Respiratory Rate (units (unknown) date) 18 unknown) (unknown) (no (unknown) (unknown) Respiratory Rate (units (unknown) date) unknown) (unknown) (no (unknown) (unknown) Review of (units (unkn own) date) Systems unknown) (unknown) (no (unknown) (unknown) Signed By: (units (unk nown) date) unknown) (unknown) (no (unknown) (unknown) Sister Healthy (units (unknown) date) adult unknown) (unknown) (no (unknown) (unknown) Smoking Status: (units (unknown) date) Current every day unknown) smoker (unknown) (no (unknown) (unknown) Social History (units (unknown) date) (Reviewed unknown) 11/08/21 @ 05:42 by Arpita Mccain DO) (unknown) (no (unknown) (unknown) Source: patient (units (unknown) date) unknown) (unknown) (no (unknown) (unknown) Stated (units (unkno wn) date) Complaint: low unknown) blood pressure, passed out hit head (unknown) (no (unknown) (unknown) Substance Use (units ( unknown) date) Type: does not unknown) use (unknown) (no (unknown) (unknown) Surgical History (units (unknown) date) (Reviewed unknown) 11/08/21 @ 05:42 by Arpita Mccain DO) (unknown) (no (unknown) (unknown) Temperature 98 F (units (unknown) date) 11/08/21 05:25 unknown) (unknown) (no (unknown) (unknown) Temperature 98 F (units (unknown) date) unknown) (unknown) (no (unknown) (unknown) Temperature (units (un known) date) unknown) (unknown) (no (unknown) (unknown) Time Seen by (units (u nknown) date) Provider: unknown) 11/08/21 05:42 (unknown) (no (unknown) (unknown) Tobacco (units (unkno wn) date) dependence unknown) (unknown) (no (unknown) (unknown) Vital Signs - 8 (units (unknown) date) hr unknown) (unknown) (no (unknown) (unknown) Vital Signs (units (un known) date) unknown) (unknown) (no (unknown) (unknown) Vital signs: (units (u nknown) date) unknown) (unknown) (no (unknown) (unknown) alcohol intake (units (unknown) date) frequency: unknown) holidays/special occasions only (unknown) (no (unknown) (unknown) alcohol intake: (units (unknown) date) never unknown) (unknown) (no (unknown) (unknown) and below (units (unkn own) date) unknown) (unknown) (no (unknown) (unknown) household (units (unkn own) date) members: spouse unknown) and family (unknown) (no (unknown) (unknown) levofloxacin 750 (units (unknown) date) mg tablet 750 mg unknown) PO DAILY #4 tabs 06/10/18 (unknown) (no (unknown) (unknown) levofloxacin 750 (units (unknown) date) mg tablet unknown) (unknown) (no (unknown) (unknown) methocarbamol (units ( unknown) date) 500 mg tablet 500 unknown) mg PO TID PRN Neck pain #18 10/16/21 (unknown) (no (unknown) (unknown) methocarbamol (units ( unknown) date) 500 mg tablet unknown) (unknown) (no (unknown) (unknown) mg tablet (units (unkn own) date) (Percocet) unknown) (unknown) (no (unknown) (unknown) oxycodone-acetam (units (unknown) date) inophen 5 mg-325 unknown) 1 tab PO Q6H PRN pain #10 tabs 10/16/21 (unknown) (no (unknown) (unknown) oxycodone-acetam (units (unknown) date) inophen unknown) [Percocet] 5-325 mg tablet (unknown) (no (unknown) (unknown) substance use (units ( unknown) date) type: does not unknown) use (unknown) (no (unknown) (unknown) tabs (units (unkno wn) date) unknown) Result panel 9 (unknown) (no (unknown) (unknown) (no value) (units (unk nown) date) unknown) (unknown) (no (unknown) (unknown) 11/08/21 (units (unkno wn) date) unknown) (unknown) (no (unknown) (unknown) 1. No acute (units (un known) date) cardiopulmonary unknown) disease. (unknown) (no (unknown) (unknown) 1. No acute (units (un known) date) intracranial unknown) abnormalities. (unknown) (no (unknown) (unknown) [address] [place] [address] (units (unknown) date) unknown) (unknown) (no (unknown) (unknown) 2. Cerebral (units (un known) date) volume loss and unknown) chronic microvascular ischemic changes. (unknown) (no (unknown) (unknown) 3. Left maxillary (units (unknown) date) sinus disease. unknown) (unknown) (no (unknown) (unknown) Accession Number: (units (unknown) date) [id number] unknown) (unknown) (no (unknown) (unknown) Accession Number: (units (unknown) date) [id number] unknown) (unknown) (no (unknown) (unknown) Age/Sex: 51 / M (units (unknown) date) Date of Service: unknown) (unknown) (no (unknown) (unknown) MARIAN [place] (units ( unknown) date) [id number] unknown) (unknown) (no (unknown) (unknown) Approved by: (units (u nknown) date) Karan Hinton M.D. on unknown) 11/08/2021 at 7:49 (unknown) (no (unknown) (unknown) Approved by: (units (u nknown) date) Karan Hinton M.D. on unknown) 11/08/2021 at 8:18 (unknown) (no (unknown) (unknown) Bones and chest (units (unknown) date) wall: Old right unknown) 6th and 7th rib fractures are noted. No (unknown) (no (unknown) (unknown) Brain: No (units (unkn own) date) intracranial unknown) bleeds or masses. There is cerebral volume loss for (unknown) (no (unknown) (unknown) COMPARISON: (units (un known) date) [facility], unknown) CR, XR CHEST 1V, 06/08/2018, 7:04. (unknown) (no (unknown) (unknown) COMPARISON: None. (units (unknown) date) unknown) (unknown) (no (unknown) (unknown) CSF spaces: Basal (units (unknown) date) cisterns are unknown) patent. No extra-axial fluid collections. The (unknown) (no (unknown) (unknown) CT Scan Report (units (unknown) date) unknown) (unknown) (no (unknown) (unknown) : 1970 (units (unknown) date) Acct:[id number] unknown) (unknown) (no (unknown) (unknown) Dictated by: (units (u nknown) date) Karan Hinton M.D. on unknown) 11/08/2021 at 7:48 (unknown) (no (unknown) (unknown) Dictated by: (units (u nknown) date) Karan Hinton M.D. on unknown) 11/08/2021 at 8:17 (unknown) (no (unknown) (unknown) FINDINGS: (units (unkn own) date) unknown) (unknown) (no (unknown) (unknown) IMPRESSION: (units (un known) date) unknown) (unknown) (no (unknown) (unknown) INDICATIONS: (units (u nknown) date) syncope unknown) (unknown) (no (unknown) (unknown) Image quality: (units (unknown) date) Excellent. unknown) (unknown) (no (unknown) (unknown) [facility] (units (unknown) date) unknown) (unknown) (no (unknown) (unknown) Loc: ED (units (unkno wn) date) unknown) (unknown) (no (unknown) (unknown) Lungs and pleura: (units (unknown) date) Hyperinflation unknown) consistent with COPD. Bilateral interstitial (unknown) (no (unknown) (unknown) [id number] (units (unk nown) date) unknown) (unknown) (no (unknown) (unknown) Mediastinum: (units (u nknown) date) Mediastinal unknown) contours appear normal. Heart size is normal. (unknown) (no (unknown) (unknown) No significant (units (unknown) date) discrepancy with unknown) the shift mgr radiology preliminary report. (unknown) (no (unknown) (unknown) Noncontrast 4.5 (units (unknown) date) mm thick angled unknown) axial sections acquired from the foramen magnum (unknown) (no (unknown) (unknown) Ordering (units (o wn) date) Provider: unknown) Arpita Mccain D.O. (unknown) (no (unknown) (unknown) PROCEDURE: CT (units ( unknown) date) HEAD/BRAIN WO CON unknown) (unknown) (no (unknown) (unknown) PROCEDURE: XR (units ( unknown) date) CHEST 1V unknown) (unknown) (no (unknown) (unknown) Patient: (units (unkno wn) date) Wm Sutton R unknown) MR#: (unknown) (no (unknown) (unknown) Procedure: CT (units ( unknown) date) head/brain wo con unknown) (unknown) (no (unknown) (unknown) Procedure: XR (units ( unknown) date) chest 1V unknown) (unknown) (no (unknown) (unknown) Signed (units (unkno wn) date) unknown) (unknown) (no (unknown) (unknown) Sinuses: Mucosal (units (unknown) date) thickening and an unknown) air-fluid level in the left maxillary (unknown) (no (unknown) (unknown) Skull and face: (units (unknown) date) Calvarium and unknown) visualized facial bones appear intact, without (unknown) (no (unknown) (unknown) Surgical changes (units (unknown) date) and devices: None. unknown) (unknown) (no (unknown) (unknown) TECHNIQUE: One (units (unknown) date) view of the chest unknown) was acquired. (unknown) (no (unknown) (unknown) TECHNIQUE: (units (unk nown) date) unknown) (unknown) (no (unknown) (unknown) XRay Report (units (un known) date) unknown) (unknown) (no (unknown) (unknown) age, with (units (unkn own) date) unknown) (unknown) (no (unknown) (unknown) and deep (units (unkno wn) date) unknown) (unknown) (no (unknown) (unknown) carotid artery (units (unknown) date) atherosclerosis. unknown) (unknown) (no (unknown) (unknown) following (units (unkn own) date) unknown) (unknown) (no (unknown) (unknown) internal (units (unkno wn) date) unknown) (unknown) (no (unknown) (unknown) lesions. (units (unkno wn) date) Overlying soft unknown) tissues appear unremarkable. (unknown) (no (unknown) (unknown) lesions. (units (unkno wn) date) unknown) (unknown) (no (unknown) (unknown) mastoids are (units (u nknown) date) clear. unknown) (unknown) (no (unknown) (unknown) patient (units (unkno wn) date) unknown) (unknown) (no (unknown) (unknown) pneumothorax. (units ( unknown) date) unknown) (unknown) (no (unknown) (unknown) prominence. There (units (unknown) date) are a scars in unknown) apices bilaterally. No pleural effusions or (unknown) (no (unknown) (unknown) resultant (units (unkn own) date) ventricular and unknown) sulcal prominence. There are mild periventricular (unknown) (no (unknown) (unknown) sinus. The (units (unk nown) date) unknown) (unknown) (no (unknown) (unknown) size. (units (unkno wn) date) unknown) (unknown) (no (unknown) (unknown) suspicious bony (units (unknown) date) unknown) (unknown) (no (unknown) (unknown) suspicious (units (unk nown) date) unknown) (unknown) (no (unknown) (unknown) to the (units (unkno wn) date) unknown) (unknown) (no (unknown) (unknown) ventricles are (units (unknown) date) symmetric in size unknown) and shape. (unknown) (no (unknown) (unknown) vertex, with (units (u nknown) date) coronal and unknown) sagittal reformats. For radiation dose reduction, the (unknown) (no (unknown) (unknown) was used: (units (unkn own) date) automated exposure unknown) control, adjustment of mA and/or kV according to (unknown) (no (unknown) (unknown) white matter (units (u nknown) date) chronic small unknown) vessel ischemic changes. There is intracranial Result panel 10 (unknown) (no (unknown) (unknown) (no value) (units (unk nown) date) unknown) (unknown) (no (unknown) (unknown) [id number] (units (unkn own) date) unknown) (unknown) (no (unknown) (unknown) 05:25 11/08/21 (units (unknown) date) unknown) (unknown) (no (unknown) (unknown) 05:27 11/08/21 (units (unknown) date) unknown) (unknown) (no (unknown) (unknown) 05:30 (units (unkno wn) date) unknown) (unknown) (no (unknown) (unknown) 05:32 11/08/21 (units (unknown) date) unknown) (unknown) (no (unknown) (unknown) 05:34 11/08/21 (units (unknown) date) unknown) (unknown) (no (unknown) (unknown) 05:34 (units (unkno wn) date) unknown) (unknown) (no (unknown) (unknown) 05:35 11/08/21 (units (unknown) date) unknown) (unknown) (no (unknown) (unknown) 05:35 (units (unkno wn) date) unknown) (unknown) (no (unknown) (unknown) 05:37 (units (unkno wn) date) unknown) (unknown) (no (unknown) (unknown) 11/08/21 (units (unkno wn) date) unknown) (unknown) (no (unknown) (unknown) 1 tab PO Q6H PRN (units (unknown) date) (Reason: pain) unknown) Qty: 10 0RF (unknown) (no (unknown) (unknown) 500 mg PO TID (units ( unknown) date) PRN (Reason: Neck unknown) pain) Qty: 18 0RF (unknown) (no (unknown) (unknown) 750 mg PO DAILY (units (unknown) date) Qty: 4 0RF unknown) (unknown) (no (unknown) (unknown) Age/Sex: 51 / M (units (unknown) date) unknown) (unknown) (no (unknown) (unknown) Allergies (units (unkn own) date) unknown) (unknown) (no (unknown) (unknown) Allergy/AdvReac (units (unknown) date) Type Severity unknown) Reaction Status Date / Time (unknown) (no (unknown) (unknown) Blood Pressure (units (unknown) date) 119/85 11/08/21 unknown) 05:25 (unknown) (no (unknown) (unknown) Blood Pressure (units (unknown) date) 119 unknown) (unknown) (no (unknown) (unknown) Blood Pressure (units (unknown) date) 121 116 unknown) (unknown) (no (unknown) (unknown) Blood Pressure (units (unknown) date) 123 unknown) (unknown) (no (unknown) (unknown) Blood Pressure (units (unknown) date) [Orthostatic unknown) Lying] 123 (unknown) (no (unknown) (unknown) Blood Pressure (units (unknown) date) [Orthostatic unknown) Lying] (unknown) (no (unknown) (unknown) Blood Pressure (units (unknown) date) [Orthostatic unknown) Sitting] 121 (unknown) (no (unknown) (unknown) Blood Pressure (units (unknown) date) [Orthostatic unknown) Sitting] (unknown) (no (unknown) (unknown) Blood Pressure (units (unknown) date) [Orthostatic unknown) Standing] 116/80 (unknown) (no (unknown) (unknown) Blood Pressure (units (unknown) date) [Orthostatic unknown) Standing] (unknown) (no (unknown) (unknown) Blood Pressure (units (unknown) date) unknown) (unknown) (no (unknown) (unknown) Chief Complaint: (units (unknown) date) Fall unknown) (unknown) (no (unknown) (unknown) Course (units (unkno wn) date) unknown) (unknown) (no (unknown) (unknown) : 1970 (units (unknown) date) Acct:[id number] unknown) (unknown) (no (unknown) (unknown) Date of Service: (units (unknown) date) 11/08/21 unknown) (unknown) (no (unknown) (unknown) Departure (units (unkn own) date) unknown) (unknown) (no (unknown) (unknown) Discharge Plan (units (unknown) date) unknown) (unknown) (no (unknown) (unknown) ER Physician: (units ( unknown) date) Arpita Mccain unknown) D.O. (unknown) (no (unknown) (unknown) Emergency Report (units (unknown) date) unknown) (unknown) (no (unknown) (unknown) Exam (units (unkno wn) date) unknown) (unknown) (no (unknown) (unknown) Family History (units (unknown) date) (Reviewed unknown) 11/08/21 @ 05:42 by Arpita Mccain DO) (unknown) (no (unknown) (unknown) Father Healthy (units (unknown) date) adult unknown) (unknown) (no (unknown) (unknown) General (units (unkno wn) date) unknown) (unknown) (no (unknown) (unknown) HPI - Fall (units (unk nown) date) unknown) (unknown) (no (unknown) (unknown) Healthy adult (units ( unknown) date) male unknown) (unknown) (no (unknown) (unknown) Initial Vital (units ( unknown) date) Signs unknown) (unknown) (no (unknown) (unknown) Initial Vital (units ( unknown) date) Signs: unknown) (unknown) (no (unknown) (unknown) [facility] (units (unknown) date) [address] unknown) [place] [address] (unknown) (no (unknown) (unknown) Limitations: no (units (unknown) date) limitations unknown) (unknown) (no (unknown) (unknown) Medical History (units (unknown) date) (Reviewed unknown) 11/08/21 @ 05:42 by Arpita Mccain DO) (unknown) (no (unknown) (unknown) Medication (units (unk nown) date) Instructions unknown) Recorded (unknown) (no (unknown) (unknown) Miscellaneous,Do (units (unknown) date) MD may [Primary unknown) Care Provider] (unknown) (no (unknown) (unknown) Mode of arrival: (units (unknown) date) Ambulatory unknown) (unknown) (no (unknown) (unknown) Mother Asthma (units ( unknown) date) unknown) (unknown) (no (unknown) (unknown) No Action (units (unkn own) date) unknown) (unknown) (no (unknown) (unknown) No Known Drug (units ( unknown) date) Allergies Allergy unknown) Verified 10/16/21 10:41 (unknown) (no (unknown) (unknown) No significant (units (unknown) date) past surgical unknown) history (unknown) (no (unknown) (unknown) Oxygen Delivery (units (unknown) date) Method 11/08/21 unknown) 05:25 (unknown) (no (unknown) (unknown) Oxygen Delivery (units (unknown) date) Method Room Air unknown) (unknown) (no (unknown) (unknown) Oxygen Delivery (units (unknown) date) Method unknown) (unknown) (no (unknown) (unknown) Patient History (units (unknown) date) unknown) (unknown) (no (unknown) (unknown) Patient: (units (unkno wn) date) Wm Sutton unknown) MR#: M (unknown) (no (unknown) (unknown) Prescriptions: (units (unknown) date) unknown) (unknown) (no (unknown) (unknown) Previous Rx's (units ( unknown) date) unknown) (unknown) (no (unknown) (unknown) Pulse Oximetry (units (unknown) date) 97 97 unknown) (unknown) (no (unknown) (unknown) Pulse Oximetry (units (unknown) date) 97 unknown) (unknown) (no (unknown) (unknown) Pulse Oximetry (units (unknown) date) 99 11/08/21 05:25 unknown) (unknown) (no (unknown) (unknown) Pulse Oximetry (units (unknown) date) 99 97 97 unknown) (unknown) (no (unknown) (unknown) Pulse Oximetry (units (unknown) date) unknown) (unknown) (no (unknown) (unknown) Pulse Rate 79 87 (units (unknown) date) unknown) (unknown) (no (unknown) (unknown) Pulse Rate 88 (units ( unknown) date) 11/08/21 05:25 unknown) (unknown) (no (unknown) (unknown) Pulse Rate 88 88 (units (unknown) date) 86 unknown) (unknown) (no (unknown) (unknown) Pulse Rate 91 H (units (unknown) date) unknown) (unknown) (no (unknown) (unknown) Pulse Rate (units (unk nown) date) [Orthostatic unknown) Lying] 78 (unknown) (no (unknown) (unknown) Pulse Rate (units (unk nown) date) [Orthostatic unknown) Lying] (unknown) (no (unknown) (unknown) Pulse Rate (units (unk nown) date) [Orthostatic unknown) Sitting] 75 (unknown) (no (unknown) (unknown) Pulse Rate (units (unk nown) date) [Orthostatic unknown) Sitting] (unknown) (no (unknown) (unknown) Pulse Rate (units (unk nown) date) [Orthostatic unknown) Standing] 95 H (unknown) (no (unknown) (unknown) Pulse Rate (units (unk nown) date) [Orthostatic unknown) Standing] (unknown) (no (unknown) (unknown) Pulse Rate (units (unk nown) date) unknown) (unknown) (no (unknown) (unknown) ROS Unobtainable: (units (unknown) date) All systems unknown) reviewed + are unremarkable except as noted in HPI (unknown) (no (unknown) (unknown) Referrals: (units (unk nown) date) unknown) (unknown) (no (unknown) (unknown) Related Data (units (u nknown) date) unknown) (unknown) (no (unknown) (unknown) Respiratory Rate (units (unknown) date) 18 11/08/21 05:25 unknown) (unknown) (no (unknown) (unknown) Respiratory Rate (units (unknown) date) 18 unknown) (unknown) (no (unknown) (unknown) Respiratory Rate (units (unknown) date) unknown) (unknown) (no (unknown) (unknown) Review of (units (unkn own) date) Systems unknown) (unknown) (no (unknown) (unknown) Signed By: (units (unk nown) date) unknown) (unknown) (no (unknown) (unknown) Sister Healthy (units (unknown) date) adult unknown) (unknown) (no (unknown) (unknown) Smoking Status: (units (unknown) date) Current every day unknown) smoker (unknown) (no (unknown) (unknown) Social History (units (unknown) date) (Reviewed unknown) 11/08/21 @ 05:42 by Arpita Mccain DO) (unknown) (no (unknown) (unknown) Source: patient (units (unknown) date) unknown) (unknown) (no (unknown) (unknown) Stated (units (unkno wn) date) Complaint: low unknown) blood pressure, passed out hit head (unknown) (no (unknown) (unknown) Substance Use (units ( unknown) date) Type: does not unknown) use (unknown) (no (unknown) (unknown) Surgical History (units (unknown) date) (Reviewed unknown) 11/08/21 @ 05:42 by Arpita Mccain DO) (unknown) (no (unknown) (unknown) Temperature 98 F (units (unknown) date) 11/08/21 05:25 unknown) (unknown) (no (unknown) (unknown) Temperature 98 F (units (unknown) date) unknown) (unknown) (no (unknown) (unknown) Temperature (units (un known) date) unknown) (unknown) (no (unknown) (unknown) Time Seen by (units (u nknown) date) Provider: unknown) 11/08/21 05:42 (unknown) (no (unknown) (unknown) Tobacco (units (unkno wn) date) dependence unknown) (unknown) (no (unknown) (unknown) Vital Signs - 8 (units (unknown) date) hr unknown) (unknown) (no (unknown) (unknown) Vital Signs (units (un known) date) unknown) (unknown) (no (unknown) (unknown) Vital signs: (units (u nknown) date) unknown) (unknown) (no (unknown) (unknown) alcohol intake (units (unknown) date) frequency: unknown) holidays/special occasions only (unknown) (no (unknown) (unknown) alcohol intake: (units (unknown) date) never unknown) (unknown) (no (unknown) (unknown) and below (units (unkn own) date) unknown) (unknown) (no (unknown) (unknown) household (units (unkn own) date) members: spouse unknown) and family (unknown) (no (unknown) (unknown) levofloxacin 750 (units (unknown) date) mg tablet 750 mg unknown) PO DAILY #4 tabs 06/10/18 (unknown) (no (unknown) (unknown) levofloxacin 750 (units (unknown) date) mg tablet unknown) (unknown) (no (unknown) (unknown) methocarbamol (units ( unknown) date) 500 mg tablet 500 unknown) mg PO TID PRN Neck pain #18 10/16/21 (unknown) (no (unknown) (unknown) methocarbamol (units ( unknown) date) 500 mg tablet unknown) (unknown) (no (unknown) (unknown) mg tablet (units (unkn own) date) (Percocet) unknown) (unknown) (no (unknown) (unknown) oxycodone-acetam (units (unknown) date) inophen 5 mg-325 unknown) 1 tab PO Q6H PRN pain #10 tabs 10/16/21 (unknown) (no (unknown) (unknown) oxycodone-acetam (units (unknown) date) inophen unknown) [Percocet] 5-325 mg tablet (unknown) (no (unknown) (unknown) substance use (units ( unknown) date) type: does not unknown) use (unknown) (no (unknown) (unknown) tabs (units (unkno wn) date) unknown) Result panel 11 (unknown) (no (unknown) (unknown) (no value) (units (unk nown) date) unknown) (unknown) (no (unknown) (unknown) [id number] (units (unkn own) date) unknown) (unknown) (no (unknown) (unknown) 05:25 11/08/21 (units (unknown) date) unknown) (unknown) (no (unknown) (unknown) 05:27 11/08/21 (units (unknown) date) unknown) (unknown) (no (unknown) (unknown) 05:30 (units (unkno wn) date) unknown) (unknown) (no (unknown) (unknown) 05:32 11/08/21 (units (unknown) date) unknown) (unknown) (no (unknown) (unknown) 05:34 11/08/21 (units (unknown) date) unknown) (unknown) (no (unknown) (unknown) 05:34 (units (unkno wn) date) unknown) (unknown) (no (unknown) (unknown) 05:35 11/08/21 (units (unknown) date) unknown) (unknown) (no (unknown) (unknown) 05:35 (units (unkno wn) date) unknown) (unknown) (no (unknown) (unknown) 05:37 (units (unkno wn) date) unknown) (unknown) (no (unknown) (unknown) 11/08/21 05:51 (units (unknown) date) unknown) (unknown) (no (unknown) (unknown) 11/08/21 05:52 (units (unknown) date) unknown) (unknown) (no (unknown) (unknown) 11/08/21 05:53 (units (unknown) date) unknown) (unknown) (no (unknown) (unknown) 11/08/21 (units (unkno wn) date) unknown) (unknown) (no (unknown) (unknown) 1 tab PO Q6H PRN (units (unknown) date) (Reason: pain) Qty: unknown) 10 0RF (unknown) (no (unknown) (unknown) 500 mg PO TID PRN (units (unknown) date) (Reason: Neck pain) unknown) Qty: 18 0RF (unknown) (no (unknown) (unknown) 750 mg PO DAILY (units (unknown) date) Qty: 4 0RF unknown) (unknown) (no (unknown) (unknown) ABD:bowel sounds (units (unknown) date) normal, soft, unknown) non-tender, no guarding, rebound, rigidity, no (unknown) (no (unknown) (unknown) Activity (units (unkno wn) date) Restrictions/Additio unknown) nal Instructions: (unknown) (no (unknown) (unknown) Age/Sex: 51 / M (units (unknown) date) unknown) (unknown) (no (unknown) (unknown) Allergies (units (unkn own) date) unknown) (unknown) (no (unknown) (unknown) Allergy/AdvReac (units (unknown) date) Type Severity unknown) Reaction Status Date / Time (unknown) (no (unknown) (unknown) Altered level of (units (unknown) date) conciousness unknown) present: No (unknown) (no (unknown) (unknown) Attestation: I (units (unknown) date) personally reviewed unknown) and interpreted this ECG as follows: (unknown) (no (unknown) (unknown) Blood Pressure (units (unknown) date) 119/85 11/08/21 unknown) 05:25 (unknown) (no (unknown) (unknown) Blood Pressure (units (unknown) date) 119 unknown) (unknown) (no (unknown) (unknown) Blood Pressure (units (unknown) date) 12179 116 unknown) (unknown) (no (unknown) (unknown) Blood Pressure (units (unknown) date) 123 unknown) (unknown) (no (unknown) (unknown) Blood Pressure (units (unknown) date) [Orthostatic Lying] unknown) 123 (unknown) (no (unknown) (unknown) Blood Pressure (units (unknown) date) [Orthostatic Lying] unknown) (unknown) (no (unknown) (unknown) Blood Pressure (units (unknown) date) [Orthostatic unknown) Sitting] 121 (unknown) (no (unknown) (unknown) Blood Pressure (units (unknown) date) [Orthostatic unknown) Sitting] (unknown) (no (unknown) (unknown) Blood Pressure (units (unknown) date) [Orthostatic unknown) Standing] 116 (unknown) (no (unknown) (unknown) Blood Pressure (units (unknown) date) [Orthostatic unknown) Standing] (unknown) (no (unknown) (unknown) Blood Pressure (units (unknown) date) unknown) (unknown) (no (unknown) (unknown) COVID19 -Nasal (units (unknown) date) RAPID/Pre-Proc Stat unknown) (unknown) (no (unknown) (unknown) CT head/brain wo (units (unknown) date) con Stat unknown) (unknown) (no (unknown) (unknown) Chief Complaint: (units (unknown) date) Fall unknown) (unknown) (no (unknown) (unknown) Clinical (units (unkno wn) date) Impression: unknown) (unknown) (no (unknown) (unknown) Complete Blood (units (unknown) date) Count AUTO DIFF Stat unknown) (unknown) (no (unknown) (unknown) Comprehensive (units ( unknown) date) Metabolic Panel Stat unknown) (unknown) (no (unknown) (unknown) Course (units (unkno wn) date) unknown) (unknown) (no (unknown) (unknown) : 1970 (units (unknown) date) Acct:[id number] unknown) (unknown) (no (unknown) (unknown) Date of Service: (units (unknown) date) 11/08/21 unknown) (unknown) (no (unknown) (unknown) Denies neck or back (unit s (unknown) date) pain. No chest pain unknown) or shortness of breath no nausea or (unknown) (no (unknown) (unknown) Departure (units (unkn own) date) unknown) (unknown) (no (unknown) (unknown) Discharge Plan (units (unknown) date) unknown) (unknown) (no (unknown) (unknown) Distracting Injury (units (unknown) date) Present: No unknown) (unknown) (no (unknown) (unknown) ECG Data (units (unkno wn) date) unknown) (unknown) (no (unknown) (unknown) ED Orders (units (unkn own) date) unknown) (unknown) (no (unknown) (unknown) EKG-12 Lead Stat (units (unknown) date) unknown) (unknown) (no (unknown) (unknown) ER Physician: (units ( unknown) date) Arpita Mccain D.O. unknown) (unknown) (no (unknown) (unknown) Emergency Report (units (unknown) date) unknown) (unknown) (no (unknown) (unknown) Exam Narrative: (units (unknown) date) unknown) (unknown) (no (unknown) (unknown) Exam (units (unkno wn) date) unknown) (unknown) (no (unknown) (unknown) Family History (units (unknown) date) (Reviewed 11/08/21 @ unknown) 05:56 by Arpita Mccain DO) (unknown) (no (unknown) (unknown) Father Healthy (units (unknown) date) adult unknown) (unknown) (no (unknown) (unknown) Focal Neurologic (units (unknown) date) deficit present: No unknown) (unknown) (no (unknown) (unknown) Follow up with your (unit s (unknown) date) physician for unknown) recheck. (unknown) (no (unknown) (unknown) GCS (units (unkno wn) date) unknown) (unknown) (no (unknown) (unknown) GEN: Male appears (units (unknown) date) older than stated unknown) age male, alert and oriented x 3, patient (unknown) (no (unknown) (unknown) :No CVA (units (unkn own) date) tenderness unknown) (unknown) (no (unknown) (unknown) General (units (unkno wn) date) unknown) (unknown) (no (unknown) (unknown) [place]mi coma scale (units (unknown) date) eye opening: unknown) Spontaneous (unknown) (no (unknown) (unknown) [place] coma scale (units (unknown) date) motor response: [place] unknown) commands (unknown) (no (unknown) (unknown) [place] coma scale (units (unknown) date) total score: 15 unknown) (unknown) (no (unknown) (unknown) [place] coma scale (units (unknown) date) verbal response: unknown) Orientated (unknown) (no (unknown) (unknown) HEART: Regular rate (unit s (unknown) date) and rhythm without unknown) murmur, clicks, rubs. (unknown) (no (unknown) (unknown) HEENT: Patient has (units (unknown) date) a small hematoma unknown) posterior scalp, pupils are equal round (unknown) (no (unknown) (unknown) HPI - Fall (units (unk nown) date) unknown) (unknown) (no (unknown) (unknown) HPI Narrative: (units (unknown) date) unknown) (unknown) (no (unknown) (unknown) Healthy adult male (units (unknown) date) unknown) (unknown) (no (unknown) (unknown) History of Present (units (unknown) date) Illness unknown) (unknown) (no (unknown) (unknown) Initial Vital Signs (unit s (unknown) date) unknown) (unknown) (no (unknown) (unknown) Initial Vital (units ( unknown) date) Signs: unknown) (unknown) (no (unknown) (unknown) Instructions: DI (units (unknown) date) for Syncope in unknown) Adults (Fainting) (unknown) (no (unknown) (unknown) Interpretation: (units (unknown) date) unknown) (unknown) (no (unknown) (unknown) Intoxication (units (u nknown) date) present: No unknown) (unknown) (no (unknown) (unknown) [facility] (units (unknown) date) [address] [place] [address] unknown) [place] [address] (unknown) (no (unknown) (unknown) LUNGS:Lungs clear (units (unknown) date) to auscultation, no unknown) wheezes, rales, crackles, chest moves (unknown) (no (unknown) (unknown) Limitations: no (units (unknown) date) limitations unknown) (unknown) (no (unknown) (unknown) Lipase Stat (units (un known) date) unknown) (unknown) (no (unknown) (unknown) MDM - Fall (units (unk nown) date) unknown) (unknown) (no (unknown) (unknown) MDM Narrative (units ( unknown) date) unknown) (unknown) (no (unknown) (unknown) MSCL: Non-tender, (units (unknown) date) no muscle atrophy, unknown) muscles strength 5/5 upper and lower (unknown) (no (unknown) (unknown) Medical History (units (unknown) date) (Reviewed 11/08/21 @ unknown) 05:56 by Arpita Mccain DO) (unknown) (no (unknown) (unknown) Medical decision (units (unknown) date) making narrative: unknown) (unknown) (no (unknown) (unknown) Medication (units (unk nown) date) Instructions unknown) Recorded (unknown) (no (unknown) (unknown) Midline spinal (units (unknown) date) tenderness present: unknown) No (unknown) (no (unknown) (unknown) Miscellaneous,[place] (unit s (unknown) date) MD hiwot [Primary Care unknown) Provider] (unknown) (no (unknown) (unknown) Mode of arrival: (units (unknown) date) Ambulatory unknown) (unknown) (no (unknown) (unknown) Mother Asthma (units ( unknown) date) unknown) (unknown) (no (unknown) (unknown) NEURO:CN 2-12 (units ( unknown) date) intact, sensation unknown) normal, reflexes 2/4 upper and lower (unknown) (no (unknown) (unknown) NT-proBNP (units (unkn own) date) (BNP-Adult 18+) Stat unknown) (unknown) (no (unknown) (unknown) Narrative (units (unkn own) date) unknown) (unknown) (no (unknown) (unknown) Nexus Criteria for (units (unknown) date) C-spine: 0 unknown) (unknown) (no (unknown) (unknown) Nexus Score for (units (unknown) date) C-Spine unknown) (unknown) (no (unknown) (unknown) No Action (units (unkn own) date) unknown) (unknown) (no (unknown) (unknown) No Known Drug (units ( unknown) date) Allergies Allergy unknown) Verified 10/16/21 10:41 (unknown) (no (unknown) (unknown) No significant past (unit s (unknown) date) surgical history unknown) (unknown) (no (unknown) (unknown) Ordered: (units (unkno wn) date) unknown) (unknown) (no (unknown) (unknown) Orders (units (unkno wn) date) unknown) (unknown) (no (unknown) (unknown) Oxygen Delivery (units (unknown) date) Method 11/08/21 unknown) 05:25 (unknown) (no (unknown) (unknown) Oxygen Delivery (units (unknown) date) Method Room Air unknown) (unknown) (no (unknown) (unknown) Oxygen Delivery (units (unknown) date) Method unknown) (unknown) (no (unknown) (unknown) Partial (units (unkno wn) date) Thromboplastin Time unknown) Stat (unknown) (no (unknown) (unknown) Patient History (units (unknown) date) unknown) (unknown) (no (unknown) (unknown) Patient's (units (unkn own) date) orthostatics here unknown) are negative this morning. (unknown) (no (unknown) (unknown) Patient: (units (unkno wn) date) Wm Sutton unknown) MR#: M (unknown) (no (unknown) (unknown) Please return for (units (unknown) date) new or worsening unknown) symptoms, recurrent passing out, new (unknown) (no (unknown) (unknown) Prescriptions: (units (unknown) date) unknown) (unknown) (no (unknown) (unknown) Previous Rx's (units ( unknown) date) unknown) (unknown) (no (unknown) (unknown) Prior ECG tracings: (unit s (unknown) date) not available for unknown) review (unknown) (no (unknown) (unknown) Prothrombin Time (units (unknown) date) INR Stat unknown) (unknown) (no (unknown) (unknown) Pulse Oximetry 97 (units (unknown) date) 97 unknown) (unknown) (no (unknown) (unknown) Pulse Oximetry 97 (units (unknown) date) unknown) (unknown) (no (unknown) (unknown) Pulse Oximetry 99 (units (unknown) date) 11/08/21 05:25 unknown) (unknown) (no (unknown) (unknown) Pulse Oximetry 99 (units (unknown) date) 97 97 unknown) (unknown) (no (unknown) (unknown) Pulse Oximetry (units (unknown) date) unknown) (unknown) (no (unknown) (unknown) Pulse Rate 79 87 (units (unknown) date) unknown) (unknown) (no (unknown) (unknown) Pulse Rate 88 (units ( unknown) date) 11/08/21 05:25 unknown) (unknown) (no (unknown) (unknown) Pulse Rate 88 88 86 (unit s (unknown) date) unknown) (unknown) (no (unknown) (unknown) Pulse Rate 91 H (units (unknown) date) unknown) (unknown) (no (unknown) (unknown) Pulse Rate (units (unk nown) date) [Orthostatic Lying] unknown) 78 (unknown) (no (unknown) (unknown) Pulse Rate (units (unk nown) date) [Orthostatic Lying] unknown) (unknown) (no (unknown) (unknown) Pulse Rate (units (unk nown) date) [Orthostatic unknown) Sitting] 75 (unknown) (no (unknown) (unknown) Pulse Rate (units (unk nown) date) [Orthostatic unknown) Sitting] (unknown) (no (unknown) (unknown) Pulse Rate (units (unk nown) date) [Orthostatic unknown) Standing] 95 H (unknown) (no (unknown) (unknown) Pulse Rate (units (unk nown) date) [Orthostatic unknown) Standing] (unknown) (no (unknown) (unknown) Pulse Rate (units (unk nown) date) unknown) (unknown) (no (unknown) (unknown) ROS Unobtainable: (units (unknown) date) All systems reviewed unknown) + are unremarkable except as noted in HPI (unknown) (no (unknown) (unknown) Referrals: (units (unk nown) date) unknown) (unknown) (no (unknown) (unknown) Related Data (units (u nknown) date) unknown) (unknown) (no (unknown) (unknown) Respiratory Rate 18 (unit s (unknown) date) 11/08/21 05:25 unknown) (unknown) (no (unknown) (unknown) Respiratory Rate 18 (unit s (unknown) date) unknown) (unknown) (no (unknown) (unknown) Respiratory Rate (units (unknown) date) unknown) (unknown) (no (unknown) (unknown) Review of Systems (units (unknown) date) unknown) (unknown) (no (unknown) (unknown) Scores (units (unkno wn) date) unknown) (unknown) (no (unknown) (unknown) Signed By: (units (unk nown) date) unknown) (unknown) (no (unknown) (unknown) Sinus rhythm rate (units (unknown) date) of 77 IL 152 QRS 88 unknown) QTC 436. RSR in [address] (unknown) (no (unknown) (unknown) Sister Healthy (units (unknown) date) adult unknown) (unknown) (no (unknown) (unknown) Smoking Status: (units (unknown) date) Current every day unknown) smoker (unknown) (no (unknown) (unknown) Social History (units (unknown) date) (Reviewed 11/08/21 @ unknown) 05:56 by Arpita Mccain DO) (unknown) (no (unknown) (unknown) Sodium Chloride (units (unknown) date) (Normal Saline 0.9%) unknown) 1,000 mls @ 1,000 mls/hr IV BOLUS ONE (unknown) (no (unknown) (unknown) Source: patient (units (unknown) date) unknown) (unknown) (no (unknown) (unknown) Stated Complaint: (units (unknown) date) low blood pressure, unknown) passed out hit head (unknown) (no (unknown) (unknown) Stop: 11/08/21 (units (unknown) date) 06:50 unknown) (unknown) (no (unknown) (unknown) Substance Use Type: (unit s (unknown) date) does not use unknown) (unknown) (no (unknown) (unknown) Surgical History (units (unknown) date) (Reviewed 11/08/21 @ unknown) 05:56 by Arpita Mccain DO) (unknown) (no (unknown) (unknown) Syncope (units (unkno wn) date) unknown) (unknown) (no (unknown) (unknown) Temperature 98 F (units (unknown) date) 11/08/21 05:25 unknown) (unknown) (no (unknown) (unknown) Temperature 98 F (units (unknown) date) unknown) (unknown) (no (unknown) (unknown) Temperature (units (un known) date) unknown) (unknown) (no (unknown) (unknown) This is a (units (unkn own) date) 51-year-old male unknown) with history of neuropathy and tobacco abuse who (unknown) (no (unknown) (unknown) This is a (units (unkn own) date) 51-year-old who unknown) takes gabapentin daily for neuropathy from prior (unknown) (no (unknown) (unknown) Time Seen by (units (u nknown) date) Provider: 11/08/21 unknown) 05:42 (unknown) (no (unknown) (unknown) Tobacco dependence (units (unknown) date) unknown) (unknown) (no (unknown) (unknown) Troponin + CK (units ( unknown) date) Cardiac Panel Stat unknown) (unknown) (no (unknown) (unknown) Vital Signs - 8 hr (units (unknown) date) unknown) (unknown) (no (unknown) (unknown) Vital Signs (units (un known) date) unknown) (unknown) (no (unknown) (unknown) Vital signs: (units (u nknown) date) unknown) (unknown) (no (unknown) (unknown) XR chest 1V Stat (units (unknown) date) unknown) (unknown) (no (unknown) (unknown) abdominal, back or (units (unknown) date) flank pain. Patient unknown) denies any incontinence fecal or (unknown) (no (unknown) (unknown) alcohol intake (units (unknown) date) frequency: unknown) holidays/special occasions only (unknown) (no (unknown) (unknown) alcohol intake: (units (unknown) date) never unknown) (unknown) (no (unknown) (unknown) and below (units (unkn own) date) unknown) (unknown) (no (unknown) (unknown) another very short (units (unknown) date) episode where he unknown) states he did not completely pass out but (unknown) (no (unknown) (unknown) appears to be in (units (unknown) date) mild distress. unknown) (unknown) (no (unknown) (unknown) carpal tunnel (units ( unknown) date) surgery and unknown) orthopedic fracture. Patient presents with possible (unknown) (no (unknown) (unknown) clear without any (units (unknown) date) exudates, erythema, unknown) tonsillar enlargement or uvular deviation, (unknown) (no (unknown) (unknown) comparison (units (unk nown) date) unknown) (unknown) (no (unknown) (unknown) denies illicit. (units (unknown) date) Patient notes he has unknown) not had any prior syncopal episodes. (unknown) (no (unknown) (unknown) did go to the floor (unit s (unknown) date) for a couple unknown) seconds. He denies headache pre or post. (unknown) (no (unknown) (unknown) elevation (units (unkn own) date) depression noted unknown) elsewhere. Patient does not have priors for (unknown) (no (unknown) (unknown) extremities, full (units (unknown) date) range of motion, unknown) normal gait (unknown) (no (unknown) (unknown) extremities. (units (u nknown) date) unknown) (unknown) (no (unknown) (unknown) floor. States he (units (unknown) date) hit the back of his unknown) head he has a goose egg on the back of his (unknown) (no (unknown) (unknown) for fracture. He (units (unknown) date) does use tobacco unknown) daily, denies recent or regular alcohol use, (unknown) (no (unknown) (unknown) head that is (units (u nknown) date) tender. Patient unknown) notes that he then got walked to the bedroom had (unknown) (no (unknown) (unknown) headaches, chest (units (unknown) date) pain, shortness of unknown) breath, persistent vomiting, loss of bowel (unknown) (no (unknown) (unknown) household members: (units (unknown) date) spouse and family unknown) (unknown) (no (unknown) (unknown) immediately (units (un known) date) thereafter after unknown) urinating on the toilet. Patient had EKG which (unknown) (no (unknown) (unknown) lab work. (units (unkn own) date) unknown) (unknown) (no (unknown) (unknown) levofloxacin 750 mg (unit s (unknown) date) tablet 750 mg PO unknown) DAILY #4 tabs 06/10/18 (unknown) (no (unknown) (unknown) levofloxacin 750 mg (unit s (unknown) date) tablet unknown) (unknown) (no (unknown) (unknown) masses noted, no (units (unknown) date) hepatosplenomegaly unknown) (unknown) (no (unknown) (unknown) medications. Denies (unit s (unknown) date) surgeries besides unknown) his carpal tunnel and surgical fixation (unknown) (no (unknown) (unknown) methocarbamol 500 (units (unknown) date) mg tablet 500 mg PO unknown) TID PRN Neck pain #18 10/16/21 (unknown) (no (unknown) (unknown) methocarbamol 500 (units (unknown) date) mg tablet unknown) (unknown) (no (unknown) (unknown) mg tablet (units (unkn own) date) (Percocet) unknown) (unknown) (no (unknown) (unknown) nontender sees (units (unknown) date) range of motion unknown) (unknown) (no (unknown) (unknown) numbness, tingling (units (unknown) date) or weakness of unknown) extremities. He does not take any other daily (unknown) (no (unknown) (unknown) on the toilet when (units (unknown) date) he stood up the next unknown) thing he remembers is being on the (unknown) (no (unknown) (unknown) or bladder control (units (unknown) date) or other new or unknown) concerning symptoms. (unknown) (no (unknown) (unknown) oxycodone-acetamino (unit s (unknown) date) phen 5 mg-325 1 tab unknown) PO Q6H PRN pain #10 tabs 10/16/21 (unknown) (no (unknown) (unknown) oxycodone-acetamino (unit s (unknown) date) phen [Percocet] unknown) 5-325 mg tablet (unknown) (no (unknown) (unknown) presents with (units ( unknown) date) complaint of unknown) syncopal episode with a near syncopal episode (unknown) (no (unknown) (unknown) reactive to light, (units (unknown) date) extraocular unknown) movements are intact, nares are clear. Throat is (unknown) (no (unknown) (unknown) shows RSR in 3 and (units (unknown) date) AVF with no priors unknown) for comparison. Head CT, chest x-ray and (unknown) (no (unknown) (unknown) substance use type: (unit s (unknown) date) does not use unknown) (unknown) (no (unknown) (unknown) symmetrically (units ( unknown) date) unknown) (unknown) (no (unknown) (unknown) syncopal episode. (units (unknown) date) Patient states he unknown) got up to urinate tonight, he was sitting (unknown) (no (unknown) (unknown) tabs (units (unkno wn) date) unknown) (unknown) (no (unknown) (unknown) urinary. No (units (un known) date) diarrhea or unknown) constipation, no dysuria, urgency or frequency. No new (unknown) (no (unknown) (unknown) vomiting. He has (units (unknown) date) some dizziness unknown) afterwards but did not have any prior to any Result panel 12 (unknown) (no date) (unknown) (unknown) 1.1 (units unknown) (unknown) (unknown) (no date) (unknown) (unknown) 12.2 seconds (unkn own) (unknown) (no date) (unknown) (unknown) 63 seconds (unkn own) (unknown) (no date) (unknown) (unknown) 63 seconds (unkn own) Result panel 13 (unknown) (no date) (unknown) (unknown) 0 /ul (unkn own) (unknown) (no date) (unknown) (unknown) 0.4 % (unkn own) (unknown) (no date) (unknown) (unknown) 13.7 % (unkn own) (unknown) (no date) (unknown) (unknown) 15.4 g/dl (unkn own) (unknown) (no date) (unknown) (unknown) 1700 /ul (unkn own) (unknown) (no date) (unknown) (unknown) 20.1 % (unkn own) (unknown) (no date) (unknown) (unknown) 228 x10 3/ul (unkn own) (unknown) (no date) (unknown) (unknown) 3.4 % (unkn own) (unknown) (no date) (unknown) (unknown) 30.6 pg (unkn own) (unknown) (no date) (unknown) (unknown) 300 /ul (unkn own) (unknown) (no date) (unknown) (unknown) 34.3 % (unkn own) (unknown) (no date) (unknown) (unknown) 44.8 % (unkn own) (unknown) (no date) (unknown) (unknown) 5.02 x10 6/ul (unkn own) (unknown) (no date) (unknown) (unknown) 5700 /ul (unkn own) (unknown) (no date) (unknown) (unknown) 600 /ul (unkn own) (unknown) (no date) (unknown) (unknown) 68.7 % (unkn own) (unknown) (no date) (unknown) (unknown) 7.4 % (unkn own) (unknown) (no date) (unknown) (unknown) 8.4 x10 3/ul (unkn own) (unknown) (no date) (unknown) (unknown) 89.3 fl (unkn own) Result panel 14 (unknown) (no date) (unknown) (unknown) > 60 ml/min (unkn own) (unknown) (no date) (unknown) (unknown) > 60 ml/min (unkn own) (unknown) (no date) (unknown) (unknown) 0.7 mg/dl (unkn own) (unknown) (no date) (unknown) (unknown) 0.80 mg/dl (unkn own) (unknown) (no date) (unknown) (unknown) 1.3 (units unknown) (unknown) (unknown) (no date) (unknown) (unknown) 10 mg/dl (unkn own) (unknown) (no date) (unknown) (unknown) 100 u/l (unkn own) (unknown) (no date) (unknown) (unknown) 107 mg/dl (unkn own) (unknown) (no date) (unknown) (unknown) 107 mg/dl (unkn own) (unknown) (no date) (unknown) (unknown) 108 mmol/l (unkn own) (unknown) (no date) (unknown) (unknown) 12.5 (units unknown) (unknown) (unknown) (no date) (unknown) (unknown) 140 u/l (unkn own) (unknown) (no date) (unknown) (unknown) 141 mmol/l (unkn own) (unknown) (no date) (unknown) (unknown) 22 mmol/l (unkn own) (unknown) (no date) (unknown) (unknown) 27 iu/l (unkn own) (unknown) (no date) (unknown) (unknown) 27 iu/l (unkn own) (unknown) (no date) (unknown) (unknown) 3.3 mmol/l (unkn own) (unknown) (no date) (unknown) (unknown) 3.5 g/dl (unkn own) (unknown) (no date) (unknown) (unknown) 4.4 g/dl (unkn own) (unknown) (no date) (unknown) (unknown) 46 u/l (unkn own) (unknown) (no date) (unknown) (unknown) 7.9 g/dl (unkn own) (unknown) (no date) (unknown) (unknown) 8.9 mg/dl (unkn own) Result panel 15 (unknown) (no date) (unknown) (unknown) > 60 ml/min (unkn own) (unknown) (no date) (unknown) (unknown) > 60 ml/min (unkn own) (unknown) (no date) (unknown) (unknown) < 0.012 ng/ml (unkn own) (unknown) (no date) (unknown) (unknown) < 0.012 ng/ml (unkn own) (unknown) (no date) (unknown) (unknown) 0.6 % (unkn own) (unknown) (no date) (unknown) (unknown) 0.7 mg/dl (unkn own) (unknown) (no date) (unknown) (unknown) 0.80 mg/dl (unkn own) (unknown) (no date) (unknown) (unknown) 0.83 ng/ml (unkn own) (unknown) (no date) (unknown) (unknown) 1.3 (units (unkn own) unknown) (unknown) (no date) (unknown) (unknown) 10 mg/dl (unkn own) (unknown) (no date) (unknown) (unknown) 100 u/l (unkn own) (unknown) (no date) (unknown) (unknown) 107 mg/dl (unkn own) (unknown) (no date) (unknown) (unknown) 107 mg/dl (unkn own) (unknown) (no date) (unknown) (unknown) 108 mmol/l (unkn own) (unknown) (no date) (unknown) (unknown) 12.5 (units (unkn own) unknown) (unknown) (no date) (unknown) (unknown) 140 u/l (unkn own) (unknown) (no date) (unknown) (unknown) 141 mmol/l (unkn own) (unknown) (no date) (unknown) (unknown) 22 mmol/l (unkn own) (unknown) (no date) (unknown) (unknown) 27 iu/l (unkn own) (unknown) (no date) (unknown) (unknown) 27 iu/l (unkn own) (unknown) (no date) (unknown) (unknown) 3.3 mmol/l (unkn own) (unknown) (no date) (unknown) (unknown) 3.5 g/dl (unkn own) (unknown) (no date) (unknown) (unknown) 4.4 g/dl (unkn own) (unknown) (no date) (unknown) (unknown) 46 u/l (unkn own) (unknown) (no date) (unknown) (unknown) 7.9 g/dl (unkn own) (unknown) (no date) (unknown) (unknown) 77 pg/ml (unkn own) (unknown) (no date) (unknown) (unknown) 77 pg/ml (unkn own) (unknown) (no date) (unknown) (unknown) 8.9 mg/dl (unkn own) Result panel 16 (unknown) (no date) (unknown) (unknown) Negative (units (unkn own) unknown) (unknown) (no date) (unknown) (unknown) Negative (units (unkn own) unknown) Result panel 17 (unknown) (no (unknown) (unknown) (no value) (units (unk nown) date) unknown) (unknown) (no (unknown) (unknown) <Jessica Aguila DO (unit s (unknown) date) - Last Filed: unknown) 11/08/21 08:06> (unknown) (no (unknown) (unknown) <Arpita Beverly Eds[place]angeles DO (units (unknown) date) - Last Filed: unknown) 11/08/21 06:06> (unknown) (no (unknown) (unknown) [phone] (units (unkn own) date) unknown) (unknown) (no (unknown) (unknown) 05:25 11/08/21 (units (unknown) date) unknown) (unknown) (no (unknown) (unknown) 05:27 11/08/21 (units (unknown) date) unknown) (unknown) (no (unknown) (unknown) 05:30 (units (unkno wn) date) unknown) (unknown) (no (unknown) (unknown) 05:32 11/08/21 (units (unknown) date) unknown) (unknown) (no (unknown) (unknown) 05:34 11/08/21 (units (unknown) date) unknown) (unknown) (no (unknown) (unknown) 05:34 (units (unkno wn) date) unknown) (unknown) (no (unknown) (unknown) 05:35 11/08/21 (units (unknown) date) unknown) (unknown) (no (unknown) (unknown) 05:35 (units (unkno wn) date) unknown) (unknown) (no (unknown) (unknown) 05:37 11/08/21 (units (unknown) date) unknown) (unknown) (no (unknown) (unknown) 06:00 11/08/21 (units (unknown) date) unknown) (unknown) (no (unknown) (unknown) 06:05 06:05 06:05 (units (unknown) date) unknown) (unknown) (no (unknown) (unknown) 06:09 (units (unkno wn) date) unknown) (unknown) (no (unknown) (unknown) 07:30 (units (unkno wn) date) unknown) (unknown) (no (unknown) (unknown) 11/08/21 05:51 (units (unknown) date) unknown) (unknown) (no (unknown) (unknown) 11/08/21 05:52 (units (unknown) date) unknown) (unknown) (no (unknown) (unknown) 11/08/21 05:57 (units (unknown) date) unknown) (unknown) (no (unknown) (unknown) 11/08/21 06:05 (units (unknown) date) unknown) (unknown) (no (unknown) (unknown) 11/08/21 07:30 (units (unknown) date) unknown) (unknown) (no (unknown) (unknown) 11/08/21 11/08/21 (units (unknown) date) 11/08/21 Range/Units unknown) (unknown) (no (unknown) (unknown) 11/08/21 (units (unkno wn) date) Range/Units unknown) (unknown) (no (unknown) (unknown) 11/08/21 (units (unkno wn) date) unknown) (unknown) (no (unknown) (unknown) 1 tab PO Q6H PRN (units (unknown) date) (Reason: pain) Qty: unknown) 10 0RF (unknown) (no (unknown) (unknown) 500 mg PO TID PRN (units (unknown) date) (Reason: Neck pain) unknown) Qty: 18 0RF (unknown) (no (unknown) (unknown) 750 mg PO DAILY (units (unknown) date) Qty: 4 0RF unknown) (unknown) (no (unknown) (unknown) ABD:bowel sounds (units (unknown) date) normal, soft, unknown) non-tender, no guarding, rebound, rigidity, no (unknown) (no (unknown) (unknown) ALT (<50) IU/L (units (unknown) date) unknown) (unknown) (no (unknown) (unknown) ALT 27 (<50) IU/L (units (unknown) date) unknown) (unknown) (no (unknown) (unknown) APTT (26-36) (units (u nknown) date) SECONDS unknown) (unknown) (no (unknown) (unknown) APTT 63 H (26-36) (units (unknown) date) SECONDS unknown) (unknown) (no (unknown) (unknown) AST (17-59) IU/L (units (unknown) date) unknown) (unknown) (no (unknown) (unknown) AST 27 (17-59) IU/L (unit s (unknown) date) unknown) (unknown) (no (unknown) (unknown) Activity (units (unkno wn) date) Restrictions/Additio unknown) nal Instructions: (unknown) (no (unknown) (unknown) Age/Sex: 51 / M (units (unknown) date) unknown) (unknown) (no (unknown) (unknown) Albumin (3.5-5.0) (units (unknown) date) g/dL unknown) (unknown) (no (unknown) (unknown) Albumin 4.4 (units (un known) date) (3.5-5.0) g/dL unknown) (unknown) (no (unknown) (unknown) Albumin/Globulin (units (unknown) date) Ratio (1.0-2.8) unknown) (unknown) (no (unknown) (unknown) Albumin/Globulin (units (unknown) date) Ratio 1.3 (1.0-2.8) unknown) (unknown) (no (unknown) (unknown) Alkaline (units (unkno wn) date) Phosphatase (38-126) unknown) U/L (unknown) (no (unknown) (unknown) Alkaline (units (unkno wn) date) Phosphatase 100 unknown) (38-126) U/L (unknown) (no (unknown) (unknown) Allergies (units (unkn own) date) unknown) (unknown) (no (unknown) (unknown) Allergy/AdvReac (units (unknown) date) Type Severity unknown) Reaction Status Date / Time (unknown) (no (unknown) (unknown) Altered level of (units (unknown) date) conciousness unknown) present: No (unknown) (no (unknown) (unknown) Attestation: I (units (unknown) date) personally reviewed unknown) and interpreted this ECG as follows: (unknown) (no (unknown) (unknown) BUN (9-20) mg/dL (units (unknown) date) unknown) (unknown) (no (unknown) (unknown) BUN 10 (9-20) mg/dL (unit s (unknown) date) unknown) (unknown) (no (unknown) (unknown) BUN/Creatinine (units (unknown) date) Ratio (6-22) unknown) (unknown) (no (unknown) (unknown) BUN/Creatinine (units (unknown) date) Ratio 12.5 (6-22) unknown) (unknown) (no (unknown) (unknown) Baso # (Auto) (units ( unknown) date) (0-100) /uL unknown) (unknown) (no (unknown) (unknown) Baso # (Auto) 0 (units (unknown) date) (0-100) /uL unknown) (unknown) (no (unknown) (unknown) Baso % (Auto) (0-2) (unit s (unknown) date) % unknown) (unknown) (no (unknown) (unknown) Baso % (Auto) 0.4 (units (unknown) date) (0-2) % unknown) (unknown) (no (unknown) (unknown) Blood Pressure (units (unknown) date) 117/77 unknown) (unknown) (no (unknown) (unknown) Blood Pressure (units (unknown) date) 119/85 11/08/21 unknown) 05:25 (unknown) (no (unknown) (unknown) Blood Pressure (units (unknown) date) 119/85 unknown) (unknown) (no (unknown) (unknown) Blood Pressure (units (unknown) date) 121/79 116/80 unknown) (unknown) (no (unknown) (unknown) Blood Pressure (units (unknown) date) 123/79 unknown) (unknown) (no (unknown) (unknown) Blood Pressure (units (unknown) date) [Orthostatic Lying] unknown) 123/79 (unknown) (no (unknown) (unknown) Blood Pressure (units (unknown) date) [Orthostatic Lying] unknown) (unknown) (no (unknown) (unknown) Blood Pressure (units (unknown) date) [Orthostatic unknown) Sitting] 121/79 (unknown) (no (unknown) (unknown) Blood Pressure (units (unknown) date) [Orthostatic unknown) Sitting] (unknown) (no (unknown) (unknown) Blood Pressure (units (unknown) date) [Orthostatic unknown) Standing] 116/80 (unknown) (no (unknown) (unknown) Blood Pressure (units (unknown) date) [Orthostatic unknown) Standing] (unknown) (no (unknown) (unknown) Blood Pressure (units (unknown) date) unknown) (unknown) (no (unknown) (unknown) CK-MB (CK-2) (units (u nknown) date) (<2.37) ng/mL unknown) (unknown) (no (unknown) (unknown) CK-MB (CK-2) 0.83 (units (unknown) date) (<2.37) ng/mL unknown) (unknown) (no (unknown) (unknown) CK-MB (CK-2) Rel (units (unknown) date) Index (1.5-5.0) % unknown) (unknown) (no (unknown) (unknown) CK-MB (CK-2) Rel (units (unknown) date) Index 0.6 L unknown) (1.5-5.0) % (unknown) (no (unknown) (unknown) COVID19 -Nasal (units (unknown) date) RAPID/Pre-Proc Stat unknown) (unknown) (no (unknown) (unknown) CT head/brain wo (units (unknown) date) con Stat unknown) (unknown) (no (unknown) (unknown) Calcium (8.4-10.2) (units (unknown) date) mg/dL unknown) (unknown) (no (unknown) (unknown) Calcium 8.9 (units (un known) date) (8.4-10.2) mg/dL unknown) (unknown) (no (unknown) (unknown) Carbon Dioxide (units (unknown) date) (22-32) mmol/L unknown) (unknown) (no (unknown) (unknown) Carbon Dioxide 22 (units (unknown) date) (22-32) mmol/L unknown) (unknown) (no (unknown) (unknown) Chief Complaint: (units (unknown) date) Fall unknown) (unknown) (no (unknown) (unknown) Chloride (98-107) (units (unknown) date) mmol/L unknown) (unknown) (no (unknown) (unknown) Chloride 108 H (units (unknown) date) (98-107) mmol/L unknown) (unknown) (no (unknown) (unknown) Clinical (units (unkno wn) date) Impression: unknown) (unknown) (no (unknown) (unknown) Complete Blood (units (unknown) date) Count AUTO DIFF Stat unknown) (unknown) (no (unknown) (unknown) Comprehensive (units ( unknown) date) Metabolic Panel Stat unknown) (unknown) (no (unknown) (unknown) Course (units (unkno wn) date) unknown) (unknown) (no (unknown) (unknown) Creatinine (units (unk nown) date) (0.66-1.25) mg/dL unknown) (unknown) (no (unknown) (unknown) Creatinine 0.80 (units (unknown) date) (0.66-1.25) mg/dL unknown) (unknown) (no (unknown) (unknown) : 1970 (units (unknown) date) Acct:[id number] unknown) (unknown) (no (unknown) (unknown) Date of Service: (units (unknown) date) 11/08/21 unknown) (unknown) (no (unknown) (unknown) Denies neck or back (unit s (unknown) date) pain. No chest pain unknown) or shortness of breath no nausea or (unknown) (no (unknown) (unknown) Departure (units (unkn own) date) unknown) (unknown) (no (unknown) (unknown) Discharge Plan (units (unknown) date) unknown) (unknown) (no (unknown) (unknown) Discontinued (units (u nknown) date) Medications unknown) (unknown) (no (unknown) (unknown) Distracting Injury (units (unknown) date) Present: No unknown) (unknown) (no (unknown) (unknown) ECG Data (units (unkno wn) date) unknown) (unknown) (no (unknown) (unknown) ED Orders (units (unkn own) date) unknown) (unknown) (no (unknown) (unknown) EKG-12 Lead Stat (units (unknown) date) unknown) (unknown) (no (unknown) (unknown) ER Physician: (units ( unknown) date) Jessica Aguila D.O. unknown) (unknown) (no (unknown) (unknown) Emergency Report (units (unknown) date) unknown) (unknown) (no (unknown) (unknown) Eos # (Auto) (units (u nknown) date) (0-450) /uL unknown) (unknown) (no (unknown) (unknown) Eos # (Auto) 300 (units (unknown) date) (0-450) /uL unknown) (unknown) (no (unknown) (unknown) Eos % (Auto) (2-4) (units (unknown) date) % unknown) (unknown) (no (unknown) (unknown) Eos % (Auto) 3.4 (units (unknown) date) (2-4) % unknown) (unknown) (no (unknown) (unknown) Estimated GFR > 60 (units (unknown) date) (>60) mL/min unknown) (unknown) (no (unknown) (unknown) Estimated GFR (>60) (unit s (unknown) date) mL/min unknown) (unknown) (no (unknown) (unknown) Exam Narrative: (units (unknown) date) unknown) (unknown) (no (unknown) (unknown) Exam (units (unkno wn) date) unknown) (unknown) (no (unknown) (unknown) Family History (units (unknown) date) (Reviewed 11/08/21 @ unknown) 05:56 by Arpita Mccain DO) (unknown) (no (unknown) (unknown) Father Healthy (units (unknown) date) adult unknown) (unknown) (no (unknown) (unknown) Focal Neurologic (units (unknown) date) deficit present: No unknown) (unknown) (no (unknown) (unknown) Follow up with your (unit s (unknown) date) physician for unknown) recheck. (unknown) (no (unknown) (unknown) GCS (units (unkno wn) date) unknown) (unknown) (no (unknown) (unknown) GEN: Male appears (units (unknown) date) older than stated unknown) age male, alert and oriented x 3, patient (unknown) (no (unknown) (unknown) :No CVA (units (unkn own) date) tenderness unknown) (unknown) (no (unknown) (unknown) General (units (unkno wn) date) unknown) (unknown) (no (unknown) (unknown) [place] coma scale (units (unknown) date) eye opening: unknown) Spontaneous (unknown) (no (unknown) (unknown) [place] coma scale (units (unknown) date) motor response: [place] unknown) commands (unknown) (no (unknown) (unknown) [place] coma scale (units (unknown) date) total score: 15 unknown) (unknown) (no (unknown) (unknown) [place] coma scale (units (unknown) date) verbal response: unknown) Orientated (unknown) (no (unknown) (unknown) Globulin (1.7-4.1) (units (unknown) date) g/dL unknown) (unknown) (no (unknown) (unknown) Globulin 3.5 (units (u nknown) date) (1.7-4.1) g/dL unknown) (unknown) (no (unknown) (unknown) Glucose (70-100) (units (unknown) date) mg/dL unknown) (unknown) (no (unknown) (unknown) Glucose 107 H (units ( unknown) date) (70-100) mg/dL unknown) (unknown) (no (unknown) (unknown) HEART: Regular rate (unit s (unknown) date) and rhythm without unknown) murmur, clicks, rubs. (unknown) (no (unknown) (unknown) HEENT: Patient has (units (unknown) date) a small hematoma unknown) posterior scalp, pupils are equal round (unknown) (no (unknown) (unknown) HPI - Fall (units (unk nown) date) unknown) (unknown) (no (unknown) (unknown) HPI Narrative: (units (unknown) date) unknown) (unknown) (no (unknown) (unknown) Hct (41-53) % (units ( unknown) date) unknown) (unknown) (no (unknown) (unknown) Hct 44.8 (41-53) % (units (unknown) date) unknown) (unknown) (no (unknown) (unknown) Healthy adult male (units (unknown) date) unknown) (unknown) (no (unknown) (unknown) Hgb (13.5-17.5) (units (unknown) date) g/dL unknown) (unknown) (no (unknown) (unknown) Hgb 15.4 (units (unkno wn) date) (13.5-17.5) g/dL unknown) (unknown) (no (unknown) (unknown) History of Present (units (unknown) date) Illness unknown) (unknown) (no (unknown) (unknown) INR (0.9-1.3) (units ( unknown) date) unknown) (unknown) (no (unknown) (unknown) INR 1.1 (0.9-1.3) (units (unknown) date) unknown) (unknown) (no (unknown) (unknown) Initial Vital Signs (unit s (unknown) date) unknown) (unknown) (no (unknown) (unknown) Initial Vital (units ( unknown) date) Signs: unknown) (unknown) (no (unknown) (unknown) Instructions: DI (units (unknown) date) for Syncope in unknown) Adults (Fainting) (unknown) (no (unknown) (unknown) Interpretation: (units (unknown) date) unknown) (unknown) (no (unknown) (unknown) Intoxication (units (u nknown) date) present: No unknown) (unknown) (no (unknown) (unknown) [facility] (units (unknown) date) [address] [place] [address] unknown) [place] [address] (unknown) (no (unknown) (unknown) LUNGS:Lungs clear (units (unknown) date) to auscultation, no unknown) wheezes, rales, crackles, chest moves (unknown) (no (unknown) (unknown) Lab Data (units (unkno wn) date) unknown) (unknown) (no (unknown) (unknown) Lab Results (units (un known) date) unknown) (unknown) (no (unknown) (unknown) Labs: (units (unkno wn) date) unknown) (unknown) (no (unknown) (unknown) Limitations: no (units (unknown) date) limitations unknown) (unknown) (no (unknown) (unknown) Lipase (23-300) U/L (unit s (unknown) date) unknown) (unknown) (no (unknown) (unknown) Lipase 46 (23-300) (units (unknown) date) U/L unknown) (unknown) (no (unknown) (unknown) Lipase Stat (units (un known) date) unknown) (unknown) (no (unknown) (unknown) Lymph # (Auto) (units (unknown) date) (2595-9311) /uL unknown) (unknown) (no (unknown) (unknown) Lymph # (Auto) 1700 (unit s (unknown) date) (2061-1876) /uL unknown) (unknown) (no (unknown) (unknown) Lymph % (Auto) (units (unknown) date) (25-40) % unknown) (unknown) (no (unknown) (unknown) Lymph % (Auto) 20.1 (unit s (unknown) date) L (25-40) % unknown) (unknown) (no (unknown) (unknown) MCH (26-34) PG (units (unknown) date) unknown) (unknown) (no (unknown) (unknown) MCH 30.6 (26-34) PG (unit s (unknown) date) unknown) (unknown) (no (unknown) (unknown) MCHC (30-36) % (units (unknown) date) unknown) (unknown) (no (unknown) (unknown) MCHC 34.3 (30-36) % (unit s (unknown) date) unknown) (unknown) (no (unknown) (unknown) MCV (80-100) fL (units (unknown) date) unknown) (unknown) (no (unknown) (unknown) MCV 89.3 (80-100) (units (unknown) date) fL unknown) (unknown) (no (unknown) (unknown) MDM - Fall (units (unk nown) date) unknown) (unknown) (no (unknown) (unknown) MDM Narrative (units ( unknown) date) unknown) (unknown) (no (unknown) (unknown) MSCL: Non-tender, (units (unknown) date) no muscle atrophy, unknown) muscles strength 5/5 upper and lower (unknown) (no (unknown) (unknown) Medical History (units (unknown) date) (Reviewed 11/08/21 @ unknown) 05:56 by Arpita Mccain DO) (unknown) (no (unknown) (unknown) Medical decision (units (unknown) date) making narrative: unknown) (unknown) (no (unknown) (unknown) Medication (units (unk nown) date) Instructions unknown) Recorded (unknown) (no (unknown) (unknown) Midline spinal (units (unknown) date) tenderness present: unknown) No (unknown) (no (unknown) (unknown) Miscellaneous,[place] (unit s (unknown) date) MD hiwot [Primary Care unknown) Provider] (unknown) (no (unknown) (unknown) Mode of arrival: (units (unknown) date) Ambulatory unknown) (unknown) (no (unknown) (unknown) Story # (Auto) (units ( unknown) date) (0-900) /uL unknown) (unknown) (no (unknown) (unknown) Story # (Auto) 600 (units (unknown) date) (0-900) /uL unknown) (unknown) (no (unknown) (unknown) Story % (Auto) (units ( unknown) date) (3-14) % unknown) (unknown) (no (unknown) (unknown) Story % (Auto) 7.4 (units (unknown) date) (3-14) % unknown) (unknown) (no (unknown) (unknown) Mother Asthma (units ( unknown) date) unknown) (unknown) (no (unknown) (unknown) NEURO:CN 2-12 (units ( unknown) date) intact, sensation unknown) normal, reflexes 2/4 upper and lower (unknown) (no (unknown) (unknown) NT-Pro-B Natriuret (units (unknown) date) Pep (<125) pg/mL unknown) (unknown) (no (unknown) (unknown) NT-Pro-B Natriuret (units (unknown) date) Pep 77 (<125) pg/mL unknown) (unknown) (no (unknown) (unknown) NT-proBNP (units (unkn own) date) (BNP-Adult 18+) Stat unknown) (unknown) (no (unknown) (unknown) Narrative (units (unkn own) date) unknown) (unknown) (no (unknown) (unknown) Neut # (Auto) (units ( unknown) date) (1341-1687) /uL unknown) (unknown) (no (unknown) (unknown) Neut # (Auto) 5700 (units (unknown) date) (6961-8680) /uL unknown) (unknown) (no (unknown) (unknown) Neut % (Auto) (units ( unknown) date) (50-75) % unknown) (unknown) (no (unknown) (unknown) Neut % (Auto) 68.7 (units (unknown) date) (50-75) % unknown) (unknown) (no (unknown) (unknown) Nexus Criteria for (units (unknown) date) C-spine: 0 unknown) (unknown) (no (unknown) (unknown) Nexus Score for (units (unknown) date) C-Spine unknown) (unknown) (no (unknown) (unknown) No Action (units (unkn own) date) unknown) (unknown) (no (unknown) (unknown) No Known Drug (units ( unknown) date) Allergies Allergy unknown) Verified 10/16/21 10:41 (unknown) (no (unknown) (unknown) No significant past (unit s (unknown) date) surgical history unknown) (unknown) (no (unknown) (unknown) Ordered: (units (unkno wn) date) unknown) (unknown) (no (unknown) (unknown) Orders (units (unkno wn) date) unknown) (unknown) (no (unknown) (unknown) Oxygen Delivery (units (unknown) date) Method 11/08/21 unknown) 05:25 (unknown) (no (unknown) (unknown) Oxygen Delivery (units (unknown) date) Method Room Air unknown) (unknown) (no (unknown) (unknown) Oxygen Delivery (units (unknown) date) Method unknown) (unknown) (no (unknown) (unknown) PT (10.1-12.7) (units (unknown) date) SECONDS unknown) (unknown) (no (unknown) (unknown) PT 12.2 (10.1-12.7) (unit s (unknown) date) SECONDS unknown) (unknown) (no (unknown) (unknown) Partial (units (unkno wn) date) Thromboplastin Time unknown) Stat (unknown) (no (unknown) (unknown) Patient (units (unkno wn) date) Disposition: Home unknown) (unknown) (no (unknown) (unknown) Patient History (units (unknown) date) unknown) (unknown) (no (unknown) (unknown) Patient's (units (unkn own) date) orthostatics here unknown) are negative this morning. (unknown) (no (unknown) (unknown) Patient: (units (unkno wn) date) Wm Sutton R unknown) MR#: M (unknown) (no (unknown) (unknown) Please return for (units (unknown) date) new or worsening unknown) symptoms, recurrent passing out, new (unknown) (no (unknown) (unknown) Plt Count (150-400) (unit s (unknown) date) X103/uL unknown) (unknown) (no (unknown) (unknown) Plt Count 228 (units ( unknown) date) (150-400) X103/uL unknown) (unknown) (no (unknown) (unknown) Potassium (3.4-5.1) (unit s (unknown) date) mmol/L unknown) (unknown) (no (unknown) (unknown) Potassium 3.3 L (units (unknown) date) (3.4-5.1) mmol/L unknown) (unknown) (no (unknown) (unknown) Prescriptions: (units (unknown) date) unknown) (unknown) (no (unknown) (unknown) Previous Rx's (units ( unknown) date) unknown) (unknown) (no (unknown) (unknown) Prior ECG tracings: (unit s (unknown) date) not available for unknown) review (unknown) (no (unknown) (unknown) Prothrombin Time (units (unknown) date) INR Stat unknown) (unknown) (no (unknown) (unknown) Pulse Oximetry 97 (units (unknown) date) 97 unknown) (unknown) (no (unknown) (unknown) Pulse Oximetry 97 (units (unknown) date) unknown) (unknown) (no (unknown) (unknown) Pulse Oximetry 99 (units (unknown) date) 11/08/21 05:25 unknown) (unknown) (no (unknown) (unknown) Pulse Oximetry 99 (units (unknown) date) 97 97 unknown) (unknown) (no (unknown) (unknown) Pulse Oximetry (units (unknown) date) unknown) (unknown) (no (unknown) (unknown) Pulse Rate 75 72 (units (unknown) date) unknown) (unknown) (no (unknown) (unknown) Pulse Rate 79 87 (units (unknown) date) unknown) (unknown) (no (unknown) (unknown) Pulse Rate 88 (units ( unknown) date) 11/08/21 05:25 unknown) (unknown) (no (unknown) (unknown) Pulse Rate 88 88 86 (unit s (unknown) date) unknown) (unknown) (no (unknown) (unknown) Pulse Rate 91 H (units (unknown) date) unknown) (unknown) (no (unknown) (unknown) Pulse Rate (units (unk nown) date) [Orthostatic Lying] unknown) 78 (unknown) (no (unknown) (unknown) Pulse Rate (units (unk nown) date) [Orthostatic Lying] unknown) (unknown) (no (unknown) (unknown) Pulse Rate (units (unk nown) date) [Orthostatic unknown) Sitting] 75 (unknown) (no (unknown) (unknown) Pulse Rate (units (unk nown) date) [Orthostatic unknown) Sitting] (unknown) (no (unknown) (unknown) Pulse Rate (units (unk nown) date) [Orthostatic unknown) Standing] 95 H (unknown) (no (unknown) (unknown) Pulse Rate (units (unk nown) date) [Orthostatic unknown) Standing] (unknown) (no (unknown) (unknown) Pulse Rate (units (unk nown) date) unknown) (unknown) (no (unknown) (unknown) RBC (4.5-5.9) (units ( unknown) date) X106/uL unknown) (unknown) (no (unknown) (unknown) RBC 5.02 (4.5-5.9) (units (unknown) date) X106/uL unknown) (unknown) (no (unknown) (unknown) RDW (11.6-14.8) % (units (unknown) date) unknown) (unknown) (no (unknown) (unknown) RDW 13.7 (units (unkno wn) date) (11.6-14.8) % unknown) (unknown) (no (unknown) (unknown) ROS Unobtainable: (units (unknown) date) All systems reviewed unknown) + are unremarkable except as noted in HPI (unknown) (no (unknown) (unknown) Referrals: (units (unk nown) date) unknown) (unknown) (no (unknown) (unknown) Related Data (units (u nknown) date) unknown) (unknown) (no (unknown) (unknown) Respiratory Rate 18 (unit s (unknown) date) 11/08/21 05:25 unknown) (unknown) (no (unknown) (unknown) Respiratory Rate 18 (unit s (unknown) date) unknown) (unknown) (no (unknown) (unknown) Respiratory Rate 21 (unit s (unknown) date) 19 unknown) (unknown) (no (unknown) (unknown) Respiratory Rate (units (unknown) date) unknown) (unknown) (no (unknown) (unknown) Result diagrams: (units (unknown) date) unknown) (unknown) (no (unknown) (unknown) Review of Systems (units (unknown) date) unknown) (unknown) (no (unknown) (unknown) SARS-CoV-2 (PCR) (units (unknown) date) (Negative) unknown) (unknown) (no (unknown) (unknown) SARS-CoV-2 (PCR) (units (unknown) date) Negative (Negative) unknown) (unknown) (no (unknown) (unknown) Scores (units (unkno wn) date) unknown) (unknown) (no (unknown) (unknown) Signed By: (units (unk nown) date) unknown) (unknown) (no (unknown) (unknown) Sinus rhythm rate (units (unknown) date) of 77 IL 152 QRS 88 unknown) QTC 436. RSR in [address] (unknown) (no (unknown) (unknown) Sister Healthy (units (unknown) date) adult unknown) (unknown) (no (unknown) (unknown) Smoking Status: (units (unknown) date) Current every day unknown) smoker (unknown) (no (unknown) (unknown) Social History (units (unknown) date) (Reviewed 11/08/21 @ unknown) 05:56 by Arpita Mccain DO) (unknown) (no (unknown) (unknown) Sodium (137-145) (units (unknown) date) mmol/L unknown) (unknown) (no (unknown) (unknown) Sodium 141 (units (unk nown) date) (137-145) mmol/L unknown) (unknown) (no (unknown) (unknown) Sodium Chloride (units (unknown) date) (Normal Saline 0.9%) unknown) 1,000 mls @ 1,000 mls/hr IV BOLUS ONE (unknown) (no (unknown) (unknown) Source: patient (units (unknown) date) unknown) (unknown) (no (unknown) (unknown) Stated Complaint: (units (unknown) date) low blood pressure, unknown) passed out hit head (unknown) (no (unknown) (unknown) Stop: 11/08/21 (units (unknown) date) 06:50 unknown) (unknown) (no (unknown) (unknown) Substance Use Type: (unit s (unknown) date) does not use unknown) (unknown) (no (unknown) (unknown) Surgical History (units (unknown) date) (Reviewed 11/08/21 @ unknown) 05:56 by Arpita Mccain DO) (unknown) (no (unknown) (unknown) Syncope (units (unkno wn) date) unknown) (unknown) (no (unknown) (unknown) Temperature 98 F (units (unknown) date) 11/08/21 05:25 unknown) (unknown) (no (unknown) (unknown) Temperature 98 F (units (unknown) date) unknown) (unknown) (no (unknown) (unknown) Temperature (units (un known) date) unknown) (unknown) (no (unknown) (unknown) This is a (units (unkn own) date) 51-year-old male unknown) with history of neuropathy and tobacco abuse who (unknown) (no (unknown) (unknown) This is a (units (unkn own) date) 51-year-old who unknown) takes gabapentin daily for neuropathy from prior (unknown) (no (unknown) (unknown) Time Seen by (units (u nknown) date) Provider: 11/08/21 unknown) 05:42 (unknown) (no (unknown) (unknown) Tobacco dependence (units (unknown) date) unknown) (unknown) (no (unknown) (unknown) Total Bilirubin (units (unknown) date) (0.2-1.3) mg/dL unknown) (unknown) (no (unknown) (unknown) Total Bilirubin 0.7 (unit s (unknown) date) (0.2-1.3) mg/dL unknown) (unknown) (no (unknown) (unknown) Total Creatine (units (unknown) date) Kinase (55-170) U/L unknown) (unknown) (no (unknown) (unknown) Total Creatine (units (unknown) date) Kinase 140 (55-170) unknown) U/L (unknown) (no (unknown) (unknown) Total Protein (units ( unknown) date) (6.3-8.2) g/dL unknown) (unknown) (no (unknown) (unknown) Total Protein 7.9 (units (unknown) date) (6.3-8.2) g/dL unknown) (unknown) (no (unknown) (unknown) Troponin + CK (units ( unknown) date) Cardiac Panel Stat unknown) (unknown) (no (unknown) (unknown) Troponin I < 0.012 (units (unknown) date) (0.01-0.034) ng/mL unknown) (unknown) (no (unknown) (unknown) Troponin I (units (unk nown) date) (0.01-0.034) ng/mL unknown) (unknown) (no (unknown) (unknown) Vital Signs - 8 hr (units (unknown) date) unknown) (unknown) (no (unknown) (unknown) Vital Signs (units (un known) date) unknown) (unknown) (no (unknown) (unknown) Vital signs: (units (u nknown) date) unknown) (unknown) (no (unknown) (unknown) WBC (4.5-11.0) (units (unknown) date) X103/uL unknown) (unknown) (no (unknown) (unknown) WBC 8.4 (4.5-11.0) (units (unknown) date) X103/uL unknown) (unknown) (no (unknown) (unknown) XR chest 1V Stat (units (unknown) date) unknown) (unknown) (no (unknown) (unknown) [Embedded Image Not (unit s (unknown) date) Available] unknown) (unknown) (no (unknown) (unknown) abdominal, back or (units (unknown) date) flank pain. Patient unknown) denies any incontinence fecal or (unknown) (no (unknown) (unknown) alcohol intake (units (unknown) date) frequency: unknown) holidays/special occasions only (unknown) (no (unknown) (unknown) alcohol intake: (units (unknown) date) never unknown) (unknown) (no (unknown) (unknown) and below (units (unkn own) date) unknown) (unknown) (no (unknown) (unknown) another very short (units (unknown) date) episode where he unknown) states he did not completely pass out but (unknown) (no (unknown) (unknown) appears to be in (units (unknown) date) mild distress. unknown) (unknown) (no (unknown) (unknown) carpal tunnel (units ( unknown) date) surgery and unknown) orthopedic fracture. Patient presents with possible (unknown) (no (unknown) (unknown) clear without any (units (unknown) date) exudates, erythema, unknown) tonsillar enlargement or uvular deviation, (unknown) (no (unknown) (unknown) comparison (units (unk nown) date) unknown) (unknown) (no (unknown) (unknown) denies illicit. (units (unknown) date) Patient notes he has unknown) not had any prior syncopal episodes. (unknown) (no (unknown) (unknown) did go to the floor (unit s (unknown) date) for a couple unknown) seconds. He denies headache pre or post. (unknown) (no (unknown) (unknown) elevation (units (unkn own) date) depression noted unknown) elsewhere. Patient does not have priors for (unknown) (no (unknown) (unknown) extremities, full (units (unknown) date) range of motion, unknown) normal gait (unknown) (no (unknown) (unknown) extremities. (units (u nknown) date) unknown) (unknown) (no (unknown) (unknown) floor. States he (units (unknown) date) hit the back of his unknown) head he has a goose egg on the back of his (unknown) (no (unknown) (unknown) for fracture. He (units (unknown) date) does use tobacco unknown) daily, denies recent or regular alcohol use, (unknown) (no (unknown) (unknown) head that is (units (u nknown) date) tender. Patient unknown) notes that he then got walked to the bedroom had (unknown) (no (unknown) (unknown) headaches, chest (units (unknown) date) pain, shortness of unknown) breath, persistent vomiting, loss of bowel (unknown) (no (unknown) (unknown) household members: (units (unknown) date) spouse and family unknown) (unknown) (no (unknown) (unknown) immediately (units (un known) date) thereafter after unknown) urinating on the toilet. Patient had EKG which (unknown) (no (unknown) (unknown) lab work. (units (unkn own) date) unknown) (unknown) (no (unknown) (unknown) levofloxacin 750 mg (unit s (unknown) date) tablet 750 mg PO unknown) DAILY #4 tabs 06/10/18 (unknown) (no (unknown) (unknown) levofloxacin 750 mg (unit s (unknown) date) tablet unknown) (unknown) (no (unknown) (unknown) masses noted, no (units (unknown) date) hepatosplenomegaly unknown) (unknown) (no (unknown) (unknown) medications. Denies (unit s (unknown) date) surgeries besides unknown) his carpal tunnel and surgical fixation (unknown) (no (unknown) (unknown) methocarbamol 500 (units (unknown) date) mg tablet 500 mg PO unknown) TID PRN Neck pain #18 10/16/21 (unknown) (no (unknown) (unknown) methocarbamol 500 (units (unknown) date) mg tablet unknown) (unknown) (no (unknown) (unknown) mg tablet (units (unkn own) date) (Percocet) unknown) (unknown) (no (unknown) (unknown) nontender sees (units (unknown) date) range of motion unknown) (unknown) (no (unknown) (unknown) numbness, tingling (units (unknown) date) or weakness of unknown) extremities. He does not take any other daily (unknown) (no (unknown) (unknown) on the toilet when (units (unknown) date) he stood up the next unknown) thing he remembers is being on the (unknown) (no (unknown) (unknown) or bladder control (units (unknown) date) or other new or unknown) concerning symptoms. (unknown) (no (unknown) (unknown) oxycodone-acetamino (unit s (unknown) date) phen 5 mg-325 1 tab unknown) PO Q6H PRN pain #10 tabs 10/16/21 (unknown) (no (unknown) (unknown) oxycodone-acetamino (unit s (unknown) date) phen [Percocet] unknown) 5-325 mg tablet (unknown) (no (unknown) (unknown) presents with (units ( unknown) date) complaint of unknown) syncopal episode with a near syncopal episode (unknown) (no (unknown) (unknown) reactive to light, (units (unknown) date) extraocular unknown) movements are intact, nares are clear. Throat is (unknown) (no (unknown) (unknown) shows RSR in 3 and (units (unknown) date) AVF with no priors unknown) for comparison. Head CT, chest x-ray and (unknown) (no (unknown) (unknown) substance use type: (unit s (unknown) date) does not use unknown) (unknown) (no (unknown) (unknown) symmetrically (units ( unknown) date) unknown) (unknown) (no (unknown) (unknown) syncopal episode. (units (unknown) date) Patient states he unknown) got up to urinate tonight, he was sitting (unknown) (no (unknown) (unknown) tabs (units (unkno wn) date) unknown) (unknown) (no (unknown) (unknown) urinary. No (units (un known) date) diarrhea or unknown) constipation, no dysuria, urgency or frequency. No new (unknown) (no (unknown) (unknown) vomiting. He has (units (unknown) date) some dizziness unknown) afterwards but did not have any prior to any Result panel 18 (unknown) (no (unknown) (unknown) (no value) (units (unk nown) date) unknown) (unknown) (no (unknown) (unknown) <Jessica Aguila DO (unit s (unknown) date) - Last Filed: unknown) 11/08/21 08:55> (unknown) (no (unknown) (unknown) <Arpita Mccain DO (units (unknown) date) - Last Filed: unknown) 11/08/21 06:06> (unknown) (no (unknown) (unknown) [id number] (units (unkn own) date) unknown) (unknown) (no (unknown) (unknown) 05:25 11/08/21 (units (unknown) date) unknown) (unknown) (no (unknown) (unknown) 05:27 11/08/21 (units (unknown) date) unknown) (unknown) (no (unknown) (unknown) 05:30 (units (unkno wn) date) unknown) (unknown) (no (unknown) (unknown) 05:32 11/08/21 (units (unknown) date) unknown) (unknown) (no (unknown) (unknown) 05:34 11/08/21 (units (unknown) date) unknown) (unknown) (no (unknown) (unknown) 05:34 (units (unkno wn) date) unknown) (unknown) (no (unknown) (unknown) 05:35 11/08/21 (units (unknown) date) unknown) (unknown) (no (unknown) (unknown) 05:35 (units (unkno wn) date) unknown) (unknown) (no (unknown) (unknown) 05:37 11/08/21 (units (unknown) date) unknown) (unknown) (no (unknown) (unknown) 06:00 11/08/21 (units (unknown) date) unknown) (unknown) (no (unknown) (unknown) 06:05 06:05 06:05 (units (unknown) date) unknown) (unknown) (no (unknown) (unknown) 06:09 11/08/21 (units (unknown) date) unknown) (unknown) (no (unknown) (unknown) 06:09 (units (unkno wn) date) unknown) (unknown) (no (unknown) (unknown) 07:30 11/08/21 (units (unknown) date) unknown) (unknown) (no (unknown) (unknown) 07:30 (units (unkno wn) date) unknown) (unknown) (no (unknown) (unknown) 07:31 11/08/21 (units (unknown) date) unknown) (unknown) (no (unknown) (unknown) 07:31 (units (unkno wn) date) unknown) (unknown) (no (unknown) (unknown) 08:00 11/08/21 (units (unknown) date) unknown) (unknown) (no (unknown) (unknown) 08:00 (units (unkno wn) date) unknown) (unknown) (no (unknown) (unknown) 11/08/21 05:51 (units (unknown) date) unknown) (unknown) (no (unknown) (unknown) 11/08/21 05:52 (units (unknown) date) unknown) (unknown) (no (unknown) (unknown) 11/08/21 05:57 (units (unknown) date) unknown) (unknown) (no (unknown) (unknown) 11/08/21 06:05 (units (unknown) date) unknown) (unknown) (no (unknown) (unknown) 11/08/21 07:30 (units (unknown) date) unknown) (unknown) (no (unknown) (unknown) 11/08/21 11/08/21 (units (unknown) date) 11/08/21 Range/Units unknown) (unknown) (no (unknown) (unknown) 11/08/21 (units (unkno wn) date) Range/Units unknown) (unknown) (no (unknown) (unknown) 11/08/21 (units (unkno wn) date) unknown) (unknown) (no (unknown) (unknown) 1 tab PO Q6H PRN (units (unknown) date) (Reason: pain) Qty: unknown) 10 0RF (unknown) (no (unknown) (unknown) 500 mg PO TID PRN (units (unknown) date) (Reason: Neck pain) unknown) Qty: 18 0RF (unknown) (no (unknown) (unknown) 750 mg PO DAILY (units (unknown) date) Qty: 4 0RF unknown) (unknown) (no (unknown) (unknown) ABD:bowel sounds (units (unknown) date) normal, soft, unknown) non-tender, no guarding, rebound, rigidity, no (unknown) (no (unknown) (unknown) ALT (<50) IU/L (units (unknown) date) unknown) (unknown) (no (unknown) (unknown) ALT 27 (<50) IU/L (units (unknown) date) unknown) (unknown) (no (unknown) (unknown) APTT (26-36) (units (u nknown) date) SECONDS unknown) (unknown) (no (unknown) (unknown) APTT 63 H (26-36) (units (unknown) date) SECONDS unknown) (unknown) (no (unknown) (unknown) AST (17-59) IU/L (units (unknown) date) unknown) (unknown) (no (unknown) (unknown) AST 27 (17-59) IU/L (unit s (unknown) date) unknown) (unknown) (no (unknown) (unknown) Activity (units (unkno wn) date) Restrictions/Additio unknown) nal Instructions: (unknown) (no (unknown) (unknown) Age/Sex: 51 / M (units (unknown) date) unknown) (unknown) (no (unknown) (unknown) Albumin (3.5-5.0) (units (unknown) date) g/dL unknown) (unknown) (no (unknown) (unknown) Albumin 4.4 (units (un known) date) (3.5-5.0) g/dL unknown) (unknown) (no (unknown) (unknown) Albumin/Globulin (units (unknown) date) Ratio (1.0-2.8) unknown) (unknown) (no (unknown) (unknown) Albumin/Globulin (units (unknown) date) Ratio 1.3 (1.0-2.8) unknown) (unknown) (no (unknown) (unknown) Alkaline (units (unkno wn) date) Phosphatase (38-126) unknown) U/L (unknown) (no (unknown) (unknown) Alkaline (units (unkno wn) date) Phosphatase 100 unknown) (38-126) U/L (unknown) (no (unknown) (unknown) Allergies (units (unkn own) date) unknown) (unknown) (no (unknown) (unknown) Allergy/AdvReac (units (unknown) date) Type Severity unknown) Reaction Status Date / Time (unknown) (no (unknown) (unknown) Altered level of (units (unknown) date) conciousness unknown) present: No (unknown) (no (unknown) (unknown) Attestation: I (units (unknown) date) personally reviewed unknown) and interpreted this ECG as follows: (unknown) (no (unknown) (unknown) BUN (9-20) mg/dL (units (unknown) date) unknown) (unknown) (no (unknown) (unknown) BUN 10 (9-20) mg/dL (unit s (unknown) date) unknown) (unknown) (no (unknown) (unknown) BUN/Creatinine (units (unknown) date) Ratio (6-22) unknown) (unknown) (no (unknown) (unknown) BUN/Creatinine (units (unknown) date) Ratio 12.5 (6-22) unknown) (unknown) (no (unknown) (unknown) Baso # (Auto) (units ( unknown) date) (0-100) /uL unknown) (unknown) (no (unknown) (unknown) Baso # (Auto) 0 (units (unknown) date) (0-100) /uL unknown) (unknown) (no (unknown) (unknown) Baso % (Auto) (0-2) (unit s (unknown) date) % unknown) (unknown) (no (unknown) (unknown) Baso % (Auto) 0.4 (units (unknown) date) (0-2) % unknown) (unknown) (no (unknown) (unknown) Blood Pressure (units (unknown) date) 117/77 unknown) (unknown) (no (unknown) (unknown) Blood Pressure (units (unknown) date) 119/85 11/08/21 unknown) 05:25 (unknown) (no (unknown) (unknown) Blood Pressure (units (unknown) date) 119/85 unknown) (unknown) (no (unknown) (unknown) Blood Pressure (units (unknown) date) 121/79 116/80 unknown) (unknown) (no (unknown) (unknown) Blood Pressure (units (unknown) date) 123/79 unknown) (unknown) (no (unknown) (unknown) Blood Pressure (units (unknown) date) 133/89 112/81 unknown) (unknown) (no (unknown) (unknown) Blood Pressure (units (unknown) date) [Orthostatic Lying] unknown) 123/79 (unknown) (no (unknown) (unknown) Blood Pressure (units (unknown) date) [Orthostatic Lying] unknown) (unknown) (no (unknown) (unknown) Blood Pressure (units (unknown) date) [Orthostatic unknown) Sitting] 121/79 (unknown) (no (unknown) (unknown) Blood Pressure (units (unknown) date) [Orthostatic unknown) Sitting] (unknown) (no (unknown) (unknown) Blood Pressure (units (unknown) date) [Orthostatic unknown) Standing] 116/80 (unknown) (no (unknown) (unknown) Blood Pressure (units (unknown) date) [Orthostatic unknown) Standing] (unknown) (no (unknown) (unknown) Blood Pressure (units (unknown) date) unknown) (unknown) (no (unknown) (unknown) CK-MB (CK-2) (units (u nknown) date) (<2.37) ng/mL unknown) (unknown) (no (unknown) (unknown) CK-MB (CK-2) 0.83 (units (unknown) date) (<2.37) ng/mL unknown) (unknown) (no (unknown) (unknown) CK-MB (CK-2) Rel (units (unknown) date) Index (1.5-5.0) % unknown) (unknown) (no (unknown) (unknown) CK-MB (CK-2) Rel (units (unknown) date) Index 0.6 L unknown) (1.5-5.0) % (unknown) (no (unknown) (unknown) COVID19 -Nasal (units (unknown) date) RAPID/Pre-Proc Stat unknown) (unknown) (no (unknown) (unknown) CT head/brain wo (units (unknown) date) con Stat unknown) (unknown) (no (unknown) (unknown) Calcium (8.4-10.2) (units (unknown) date) mg/dL unknown) (unknown) (no (unknown) (unknown) Calcium 8.9 (units (un known) date) (8.4-10.2) mg/dL unknown) (unknown) (no (unknown) (unknown) Carbon Dioxide (units (unknown) date) (22-32) mmol/L unknown) (unknown) (no (unknown) (unknown) Carbon Dioxide 22 (units (unknown) date) (22-32) mmol/L unknown) (unknown) (no (unknown) (unknown) Chief Complaint: (units (unknown) date) Fall unknown) (unknown) (no (unknown) (unknown) Chloride (98-107) (units (unknown) date) mmol/L unknown) (unknown) (no (unknown) (unknown) Chloride 108 H (units (unknown) date) (98-107) mmol/L unknown) (unknown) (no (unknown) (unknown) Clinical (units (unkno wn) date) Impression: unknown) (unknown) (no (unknown) (unknown) Complete Blood (units (unknown) date) Count AUTO DIFF Stat unknown) (unknown) (no (unknown) (unknown) Comprehensive (units ( unknown) date) Metabolic Panel Stat unknown) (unknown) (no (unknown) (unknown) Course (units (unkno wn) date) unknown) (unknown) (no (unknown) (unknown) Creatinine (units (unk nown) date) (0.66-1.25) mg/dL unknown) (unknown) (no (unknown) (unknown) Creatinine 0.80 (units (unknown) date) (0.66-1.25) mg/dL unknown) (unknown) (no (unknown) (unknown) : 1970 (units (unknown) date) Acct:[id number] unknown) (unknown) (no (unknown) (unknown) Date of Service: (units (unknown) date) 11/08/21 unknown) (unknown) (no (unknown) (unknown) Denies neck or back (unit s (unknown) date) pain. No chest pain unknown) or shortness of breath no nausea or (unknown) (no (unknown) (unknown) Departure (units (unkn own) date) unknown) (unknown) (no (unknown) (unknown) Discharge Plan (units (unknown) date) unknown) (unknown) (no (unknown) (unknown) Discontinued (units (u nknown) date) Medications unknown) (unknown) (no (unknown) (unknown) Distracting Injury (units (unknown) date) Present: No unknown) (unknown) (no (unknown) (unknown) ECG Data (units (unkno wn) date) unknown) (unknown) (no (unknown) (unknown) ED Orders (units (unkn own) date) unknown) (unknown) (no (unknown) (unknown) EKG-12 Lead Stat (units (unknown) date) unknown) (unknown) (no (unknown) (unknown) ER Physician: (units ( unknown) date) Jessica Aguila D.O. unknown) (unknown) (no (unknown) (unknown) Emergency Report (units (unknown) date) unknown) (unknown) (no (unknown) (unknown) Eos # (Auto) (units (u nknown) date) (0-450) /uL unknown) (unknown) (no (unknown) (unknown) Eos # (Auto) 300 (units (unknown) date) (0-450) /uL unknown) (unknown) (no (unknown) (unknown) Eos % (Auto) (2-4) (units (unknown) date) % unknown) (unknown) (no (unknown) (unknown) Eos % (Auto) 3.4 (units (unknown) date) (2-4) % unknown) (unknown) (no (unknown) (unknown) Estimated GFR > 60 (units (unknown) date) (>60) mL/min unknown) (unknown) (no (unknown) (unknown) Estimated GFR (>60) (unit s (unknown) date) mL/min unknown) (unknown) (no (unknown) (unknown) Exam Narrative: (units (unknown) date) unknown) (unknown) (no (unknown) (unknown) Exam (units (unkno wn) date) unknown) (unknown) (no (unknown) (unknown) Family History (units (unknown) date) (Reviewed 11/08/21 @ unknown) 05:56 by Arpita Mccain DO) (unknown) (no (unknown) (unknown) Father Healthy (units (unknown) date) adult unknown) (unknown) (no (unknown) (unknown) Focal Neurologic (units (unknown) date) deficit present: No unknown) (unknown) (no (unknown) (unknown) Follow up with your (unit s (unknown) date) physician for unknown) recheck. (unknown) (no (unknown) (unknown) GCS (units (unkno wn) date) unknown) (unknown) (no (unknown) (unknown) GEN: Male appears (units (unknown) date) older than stated unknown) age male, alert and oriented x 3, patient (unknown) (no (unknown) (unknown) :No CVA (units (unkn own) date) tenderness unknown) (unknown) (no (unknown) (unknown) General (units (unkno wn) date) unknown) (unknown) (no (unknown) (unknown) [place] coma scale (units (unknown) date) eye opening: unknown) Spontaneous (unknown) (no (unknown) (unknown) [place] coma scale (units (unknown) date) motor response: Obey unknown) commands (unknown) (no (unknown) (unknown) [place] coma scale (units (unknown) date) total score: 15 unknown) (unknown) (no (unknown) (unknown) [place] coma scale (units (unknown) date) verbal response: unknown) Orientated (unknown) (no (unknown) (unknown) Globulin (1.7-4.1) (units (unknown) date) g/dL unknown) (unknown) (no (unknown) (unknown) Globulin 3.5 (units (u nknown) date) (1.7-4.1) g/dL unknown) (unknown) (no (unknown) (unknown) Glucose (70-100) (units (unknown) date) mg/dL unknown) (unknown) (no (unknown) (unknown) Glucose 107 H (units ( unknown) date) (70-100) mg/dL unknown) (unknown) (no (unknown) (unknown) HEART: Regular rate (unit s (unknown) date) and rhythm without unknown) murmur, clicks, rubs. (unknown) (no (unknown) (unknown) HEENT: Patient has (units (unknown) date) a small hematoma unknown) posterior scalp, pupils are equal round (unknown) (no (unknown) (unknown) HPI - Fall (units (unk nown) date) unknown) (unknown) (no (unknown) (unknown) HPI Narrative: (units (unknown) date) unknown) (unknown) (no (unknown) (unknown) Hct (41-53) % (units ( unknown) date) unknown) (unknown) (no (unknown) (unknown) Hct 44.8 (41-53) % (units (unknown) date) unknown) (unknown) (no (unknown) (unknown) Healthy adult male (units (unknown) date) unknown) (unknown) (no (unknown) (unknown) Hgb (13.5-17.5) (units (unknown) date) g/dL unknown) (unknown) (no (unknown) (unknown) Hgb 15.4 (units (unkno wn) date) (13.5-17.5) g/dL unknown) (unknown) (no (unknown) (unknown) History of Present (units (unknown) date) Illness unknown) (unknown) (no (unknown) (unknown) INR (0.9-1.3) (units ( unknown) date) unknown) (unknown) (no (unknown) (unknown) INR 1.1 (0.9-1.3) (units (unknown) date) unknown) (unknown) (no (unknown) (unknown) Initial Vital Signs (unit s (unknown) date) unknown) (unknown) (no (unknown) (unknown) Initial Vital (units ( unknown) date) Signs: unknown) (unknown) (no (unknown) (unknown) Instructions: DI (units (unknown) date) for Syncope in unknown) Adults (Fainting) (unknown) (no (unknown) (unknown) Interpretation: (units (unknown) date) unknown) (unknown) (no (unknown) (unknown) Intoxication (units (u nknown) date) present: No unknown) (unknown) (no (unknown) (unknown) [facility] (units (unknown) date) [address] unknown) [place] [address] (unknown) (no (unknown) (unknown) LUNGS:Lungs clear (units (unknown) date) to auscultation, no unknown) wheezes, rales, crackles, chest moves (unknown) (no (unknown) (unknown) Lab Data (units (unkno wn) date) unknown) (unknown) (no (unknown) (unknown) Lab Results (units (un known) date) unknown) (unknown) (no (unknown) (unknown) Labs: (units (unkno wn) date) unknown) (unknown) (no (unknown) (unknown) Limitations: no (units (unknown) date) limitations unknown) (unknown) (no (unknown) (unknown) Lipase (23-300) U/L (unit s (unknown) date) unknown) (unknown) (no (unknown) (unknown) Lipase 46 (23-300) (units (unknown) date) U/L unknown) (unknown) (no (unknown) (unknown) Lipase Stat (units (un known) date) unknown) (unknown) (no (unknown) (unknown) Lymph # (Auto) (units (unknown) date) (6581-3946) /uL unknown) (unknown) (no (unknown) (unknown) Lymph # (Auto) 1700 (unit s (unknown) date) (9071-9152) /uL unknown) (unknown) (no (unknown) (unknown) Lymph % (Auto) (units (unknown) date) (25-40) % unknown) (unknown) (no (unknown) (unknown) Lymph % (Auto) 20.1 (unit s (unknown) date) L (25-40) % unknown) (unknown) (no (unknown) (unknown) MCH (26-34) PG (units (unknown) date) unknown) (unknown) (no (unknown) (unknown) MCH 30.6 (26-34) PG (unit s (unknown) date) unknown) (unknown) (no (unknown) (unknown) MCHC (30-36) % (units (unknown) date) unknown) (unknown) (no (unknown) (unknown) MCHC 34.3 (30-36) % (unit s (unknown) date) unknown) (unknown) (no (unknown) (unknown) MCV (80-100) fL (units (unknown) date) unknown) (unknown) (no (unknown) (unknown) MCV 89.3 (80-100) (units (unknown) date) fL unknown) (unknown) (no (unknown) (unknown) MDM - Fall (units (unk nown) date) unknown) (unknown) (no (unknown) (unknown) MDM Narrative (units ( unknown) date) unknown) (unknown) (no (unknown) (unknown) MSCL: Non-tender, (units (unknown) date) no muscle atrophy, unknown) muscles strength 5/5 upper and lower (unknown) (no (unknown) (unknown) Medical History (units (unknown) date) (Reviewed 11/08/21 @ unknown) 05:56 by Arpita Mccain DO) (unknown) (no (unknown) (unknown) Medical decision (units (unknown) date) making narrative: unknown) (unknown) (no (unknown) (unknown) Medication (units (unk nown) date) Instructions unknown) Recorded (unknown) (no (unknown) (unknown) Midline spinal (units (unknown) date) tenderness present: unknown) No (unknown) (no (unknown) (unknown) Miscellaneous,[place]cto (unit s (unknown) date) MD hiwot [Primary Care unknown) Provider] (unknown) (no (unknown) (unknown) Mode of arrival: (units (unknown) date) Ambulatory unknown) (unknown) (no (unknown) (unknown) Story # (Auto) (units ( unknown) date) (0-900) /uL unknown) (unknown) (no (unknown) (unknown) Story # (Auto) 600 (units (unknown) date) (0-900) /uL unknown) (unknown) (no (unknown) (unknown) Story % (Auto) (units ( unknown) date) (3-14) % unknown) (unknown) (no (unknown) (unknown) Story % (Auto) 7.4 (units (unknown) date) (3-14) % unknown) (unknown) (no (unknown) (unknown) Mother Asthma (units ( unknown) date) unknown) (unknown) (no (unknown) (unknown) NEURO:CN 2-12 (units ( unknown) date) intact, sensation unknown) normal, reflexes 2/4 upper and lower (unknown) (no (unknown) (unknown) NT-Pro-B Natriuret (units (unknown) date) Pep (<125) pg/mL unknown) (unknown) (no (unknown) (unknown) NT-Pro-B Natriuret (units (unknown) date) Pep 77 (<125) pg/mL unknown) (unknown) (no (unknown) (unknown) NT-proBNP (units (unkn own) date) (BNP-Adult 18+) Stat unknown) (unknown) (no (unknown) (unknown) Narrative (units (unkn own) date) unknown) (unknown) (no (unknown) (unknown) Neut # (Auto) (units ( unknown) date) (1918-8182) /uL unknown) (unknown) (no (unknown) (unknown) Neut # (Auto) 5700 (units (unknown) date) (4194-8141) /uL unknown) (unknown) (no (unknown) (unknown) Neut % (Auto) (units ( unknown) date) (50-75) % unknown) (unknown) (no (unknown) (unknown) Neut % (Auto) 68.7 (units (unknown) date) (50-75) % unknown) (unknown) (no (unknown) (unknown) Nexus Criteria for (units (unknown) date) C-spine: 0 unknown) (unknown) (no (unknown) (unknown) Nexus Score for (units (unknown) date) C-Spine unknown) (unknown) (no (unknown) (unknown) No Action (units (unkn own) date) unknown) (unknown) (no (unknown) (unknown) No Known Drug (units ( unknown) date) Allergies Allergy unknown) Verified 10/16/21 10:41 (unknown) (no (unknown) (unknown) No significant past (unit s (unknown) date) surgical history unknown) (unknown) (no (unknown) (unknown) Ordered: (units (unkno wn) date) unknown) (unknown) (no (unknown) (unknown) Orders (units (unkno wn) date) unknown) (unknown) (no (unknown) (unknown) Oxygen Delivery (units (unknown) date) Method 11/08/21 unknown) 05:25 (unknown) (no (unknown) (unknown) Oxygen Delivery (units (unknown) date) Method Room Air unknown) (unknown) (no (unknown) (unknown) Oxygen Delivery (units (unknown) date) Method unknown) (unknown) (no (unknown) (unknown) PT (10.1-12.7) (units (unknown) date) SECONDS unknown) (unknown) (no (unknown) (unknown) PT 12.2 (10.1-12.7) (unit s (unknown) date) SECONDS unknown) (unknown) (no (unknown) (unknown) Partial (units (unkno wn) date) Thromboplastin Time unknown) Stat (unknown) (no (unknown) (unknown) Patient (units (unkno wn) date) Disposition: Home unknown) (unknown) (no (unknown) (unknown) Patient History (units (unknown) date) unknown) (unknown) (no (unknown) (unknown) Patient signed out (units (unknown) date) to ri by Dr. Mccain. I unknown) seen evaluated patient myself. Sounds (unknown) (no (unknown) (unknown) Patient's (units (unkn own) date) orthostatics here unknown) are negative this morning. (unknown) (no (unknown) (unknown) Patient: (units (unkno wn) date) Wm Sutton R unknown) MR#: M (unknown) (no (unknown) (unknown) Please return for (units (unknown) date) new or worsening unknown) symptoms, recurrent passing out, new (unknown) (no (unknown) (unknown) Plt Count (150-400) (unit s (unknown) date) X103/uL unknown) (unknown) (no (unknown) (unknown) Plt Count 228 (units ( unknown) date) (150-400) X103/uL unknown) (unknown) (no (unknown) (unknown) Potassium (3.4-5.1) (unit s (unknown) date) mmol/L unknown) (unknown) (no (unknown) (unknown) Potassium 3.3 L (units (unknown) date) (3.4-5.1) mmol/L unknown) (unknown) (no (unknown) (unknown) Prescriptions: (units (unknown) date) unknown) (unknown) (no (unknown) (unknown) Previous Rx's (units ( unknown) date) unknown) (unknown) (no (unknown) (unknown) Prior ECG tracings: (unit s (unknown) date) not available for unknown) review (unknown) (no (unknown) (unknown) Prothrombin Time (units (unknown) date) INR Stat unknown) (unknown) (no (unknown) (unknown) Pulse Oximetry 97 (units (unknown) date) 97 unknown) (unknown) (no (unknown) (unknown) Pulse Oximetry 97 (units (unknown) date) unknown) (unknown) (no (unknown) (unknown) Pulse Oximetry 99 (units (unknown) date) 11/08/21 05:25 unknown) (unknown) (no (unknown) (unknown) Pulse Oximetry 99 (units (unknown) date) 97 97 unknown) (unknown) (no (unknown) (unknown) Pulse Rate 69 (units ( unknown) date) unknown) (unknown) (no (unknown) (unknown) Pulse Rate 74 65 (units (unknown) date) unknown) (unknown) (no (unknown) (unknown) Pulse Rate 75 72 (units (unknown) date) unknown) (unknown) (no (unknown) (unknown) Pulse Rate 79 87 (units (unknown) date) unknown) (unknown) (no (unknown) (unknown) Pulse Rate 88 (units ( unknown) date) 11/08/21 05:25 unknown) (unknown) (no (unknown) (unknown) Pulse Rate 88 88 86 (unit s (unknown) date) unknown) (unknown) (no (unknown) (unknown) Pulse Rate 91 H (units (unknown) date) unknown) (unknown) (no (unknown) (unknown) Pulse Rate (units (unk nown) date) [Orthostatic Lying] unknown) 78 (unknown) (no (unknown) (unknown) Pulse Rate (units (unk nown) date) [Orthostatic Lying] unknown) (unknown) (no (unknown) (unknown) Pulse Rate (units (unk nown) date) [Orthostatic unknown) Sitting] 75 (unknown) (no (unknown) (unknown) Pulse Rate (units (unk nown) date) [Orthostatic unknown) Sitting] (unknown) (no (unknown) (unknown) Pulse Rate (units (unk nown) date) [Orthostatic unknown) Standing] 95 H (unknown) (no (unknown) (unknown) Pulse Rate (units (unk nown) date) [Orthostatic unknown) Standing] (unknown) (no (unknown) (unknown) RBC (4.5-5.9) (units ( unknown) date) X106/uL unknown) (unknown) (no (unknown) (unknown) RBC 5.02 (4.5-5.9) (units (unknown) date) X106/uL unknown) (unknown) (no (unknown) (unknown) RDW (11.6-14.8) % (units (unknown) date) unknown) (unknown) (no (unknown) (unknown) RDW 13.7 (units (unkno wn) date) (11.6-14.8) % unknown) (unknown) (no (unknown) (unknown) ROS Unobtainable: (units (unknown) date) All systems reviewed unknown) + are unremarkable except as noted in HPI (unknown) (no (unknown) (unknown) Referrals: (units (unk nown) date) unknown) (unknown) (no (unknown) (unknown) Related Data (units (u nknown) date) unknown) (unknown) (no (unknown) (unknown) Respiratory Rate 18 (unit s (unknown) date) 11/08/21 05:25 unknown) (unknown) (no (unknown) (unknown) Respiratory Rate 18 (unit s (unknown) date) unknown) (unknown) (no (unknown) (unknown) Respiratory Rate 20 (unit s (unknown) date) unknown) (unknown) (no (unknown) (unknown) Respiratory Rate 21 (unit s (unknown) date) 19 unknown) (unknown) (no (unknown) (unknown) Respiratory Rate 22 (unit s (unknown) date) unknown) (unknown) (no (unknown) (unknown) Respiratory Rate (units (unknown) date) unknown) (unknown) (no (unknown) (unknown) Result diagrams: (units (unknown) date) unknown) (unknown) (no (unknown) (unknown) Review of Systems (units (unknown) date) unknown) (unknown) (no (unknown) (unknown) SARS-CoV-2 (PCR) (units (unknown) date) (Negative) unknown) (unknown) (no (unknown) (unknown) SARS-CoV-2 (PCR) (units (unknown) date) Negative (Negative) unknown) (unknown) (no (unknown) (unknown) Scores (units (unkno wn) date) unknown) (unknown) (no (unknown) (unknown) Signed By: (units (unk nown) date) unknown) (unknown) (no (unknown) (unknown) Sinus rhythm rate (units (unknown) date) of 77 [place] 152 QRS 88 unknown) QTC 436. RSR in [address] (unknown) (no (unknown) (unknown) Sister Healthy (units (unknown) date) adult unknown) (unknown) (no (unknown) (unknown) Smoking Status: (units (unknown) date) Current every day unknown) smoker (unknown) (no (unknown) (unknown) Social History (units (unknown) date) (Reviewed 11/08/21 @ unknown) 05:56 by Arpita Mccain DO) (unknown) (no (unknown) (unknown) Sodium (137-145) (units (unknown) date) mmol/L unknown) (unknown) (no (unknown) (unknown) Sodium 141 (units (unk n) date) (137-145) mmol/L unknown) (unknown) (no (unknown) (unknown) Sodium Chloride (units (unknown) date) (Normal Saline 0.9%) unknown) 1,000 mls @ 1,000 mls/hr IV BOLUS ONE (unknown) (no (unknown) (unknown) Source: patient (units (unknown) date) unknown) (unknown) (no (unknown) (unknown) Stand Alone Forms: (units (unknown) date) Work Release Note unknown) (unknown) (no (unknown) (unknown) Stated Complaint: (units (unknown) date) low blood pressure, unknown) passed out hit head (unknown) (no (unknown) (unknown) Stop: 11/08/21 (units (unknown) date) 06:50 unknown) (unknown) (no (unknown) (unknown) Substance Use Type: (unit s (unknown) date) does not use unknown) (unknown) (no (unknown) (unknown) Surgical History (units (unknown) date) (Reviewed 11/08/21 @ unknown) 05:56 by Arpita Mccain DO) (unknown) (no (unknown) (unknown) Syncope (units (unkno wn) date) unknown) (unknown) (no (unknown) (unknown) Temperature 98 F (units (unknown) date) 11/08/21 05:25 unknown) (unknown) (no (unknown) (unknown) Temperature 98 F (units (unknown) date) unknown) (unknown) (no (unknown) (unknown) Temperature (units (un known) date) unknown) (unknown) (no (unknown) (unknown) This is a (units (unkn own) date) 51-year-old male unknown) with history of neuropathy and tobacco abuse who (unknown) (no (unknown) (unknown) This is a (units (unkn own) date) 51-year-old who unknown) takes gabapentin daily for neuropathy from prior (unknown) (no (unknown) (unknown) Time Seen by (units (u nknown) date) Provider: 11/08/21 unknown) 05:42 (unknown) (no (unknown) (unknown) Tobacco dependence (units (unknown) date) unknown) (unknown) (no (unknown) (unknown) Total Bilirubin (units (unknown) date) (0.2-1.3) mg/dL unknown) (unknown) (no (unknown) (unknown) Total Bilirubin 0.7 (unit s (unknown) date) (0.2-1.3) mg/dL unknown) (unknown) (no (unknown) (unknown) Total Creatine (units (unknown) date) Kinase (55-170) U/L unknown) (unknown) (no (unknown) (unknown) Total Creatine (units (unknown) date) Kinase 140 (55-170) unknown) U/L (unknown) (no (unknown) (unknown) Total Protein (units ( unknown) date) (6.3-8.2) g/dL unknown) (unknown) (no (unknown) (unknown) Total Protein 7.9 (units (unknown) date) (6.3-8.2) g/dL unknown) (unknown) (no (unknown) (unknown) Troponin + CK (units ( unknown) date) Cardiac Panel Stat unknown) (unknown) (no (unknown) (unknown) Troponin I < 0.012 (units (unknown) date) (0.01-0.034) ng/mL unknown) (unknown) (no (unknown) (unknown) Troponin I (units (unk nown) date) (0.01-0.034) ng/mL unknown) (unknown) (no (unknown) (unknown) Visit Report Forms: (unit s (unknown) date) Patient Portal/API unknown) (unknown) (no (unknown) (unknown) Vital Signs - 8 hr (units (unknown) date) unknown) (unknown) (no (unknown) (unknown) Vital Signs (units (un known) date) unknown) (unknown) (no (unknown) (unknown) Vital signs: (units (u nknown) date) unknown) (unknown) (no (unknown) (unknown) WBC (4.5-11.0) (units (unknown) date) X103/uL unknown) (unknown) (no (unknown) (unknown) WBC 8.4 (4.5-11.0) (units (unknown) date) X103/uL unknown) (unknown) (no (unknown) (unknown) XR chest 1V Stat (units (unknown) date) unknown) (unknown) (no (unknown) (unknown) [Embedded Image Not (unit s (unknown) date) Available] unknown) (unknown) (no (unknown) (unknown) abdominal, back or (units (unknown) date) flank pain. Patient unknown) denies any incontinence fecal or (unknown) (no (unknown) (unknown) alcohol intake (units (unknown) date) frequency: unknown) holidays/special occasions only (unknown) (no (unknown) (unknown) alcohol intake: (units (unknown) date) never unknown) (unknown) (no (unknown) (unknown) and below (units (unkn own) date) unknown) (unknown) (no (unknown) (unknown) another very short (units (unknown) date) episode where he unknown) states he did not completely pass out but (unknown) (no (unknown) (unknown) appears to be in (units (unknown) date) mild distress. unknown) (unknown) (no (unknown) (unknown) as though he had (units (unknown) date) micturition syncope unknown) stood up again to quickly. Blood work is (unknown) (no (unknown) (unknown) carpal tunnel (units ( unknown) date) surgery and unknown) orthopedic fracture. Patient presents with possible (unknown) (no (unknown) (unknown) clear without any (units (unknown) date) exudates, erythema, unknown) tonsillar enlargement or uvular deviation, (unknown) (no (unknown) (unknown) comparison (units (unk nown) date) unknown) (unknown) (no (unknown) (unknown) denies illicit. (units (unknown) date) Patient notes he has unknown) not had any prior syncopal episodes. (unknown) (no (unknown) (unknown) did go to the floor (unit s (unknown) date) for a couple unknown) seconds. He denies headache pre or post. (unknown) (no (unknown) (unknown) elevation (units (unkn own) date) depression noted unknown) elsewhere. Patient does not have priors for (unknown) (no (unknown) (unknown) extremities, full (units (unknown) date) range of motion, unknown) normal gait (unknown) (no (unknown) (unknown) extremities. (units (u nknown) date) unknown) (unknown) (no (unknown) (unknown) floor. States he (units (unknown) date) hit the back of his unknown) head he has a goose egg on the back of his (unknown) (no (unknown) (unknown) for fracture. He (units (unknown) date) does use tobacco unknown) daily, denies recent or regular alcohol use, (unknown) (no (unknown) (unknown) head that is (units (u nknown) date) tender. Patient unknown) notes that he then got walked to the bedroom had (unknown) (no (unknown) (unknown) headaches, chest (units (unknown) date) pain, shortness of unknown) breath, persistent vomiting, loss of bowel (unknown) (no (unknown) (unknown) household members: (units (unknown) date) spouse and family unknown) (unknown) (no (unknown) (unknown) immediately (units (un known) date) thereafter after unknown) urinating on the toilet. Patient had EKG which (unknown) (no (unknown) (unknown) lab work. (units (unkn own) date) unknown) (unknown) (no (unknown) (unknown) levofloxacin 750 mg (unit s (unknown) date) tablet 750 mg PO unknown) DAILY #4 tabs 06/10/18 (unknown) (no (unknown) (unknown) levofloxacin 750 mg (unit s (unknown) date) tablet unknown) (unknown) (no (unknown) (unknown) masses noted, no (units (unknown) date) hepatosplenomegaly unknown) (unknown) (no (unknown) (unknown) medications. Denies (unit s (unknown) date) surgeries besides unknown) his carpal tunnel and surgical fixation (unknown) (no (unknown) (unknown) methocarbamol 500 (units (unknown) date) mg tablet 500 mg PO unknown) TID PRN Neck pain #18 10/16/21 (unknown) (no (unknown) (unknown) methocarbamol 500 (units (unknown) date) mg tablet unknown) (unknown) (no (unknown) (unknown) mg tablet (units (unkn own) date) (Percocet) unknown) (unknown) (no (unknown) (unknown) negative COVID is (units (unknown) date) negative. Patient unknown) has no neurologic deficits (unknown) (no (unknown) (unknown) nontender sees (units (unknown) date) range of motion unknown) (unknown) (no (unknown) (unknown) numbness, tingling (units (unknown) date) or weakness of unknown) extremities. He does not take any other daily (unknown) (no (unknown) (unknown) on the toilet when (units (unknown) date) he stood up the next unknown) thing he remembers is being on the (unknown) (no (unknown) (unknown) or bladder control (units (unknown) date) or other new or unknown) concerning symptoms. (unknown) (no (unknown) (unknown) oxycodone-acetamino (unit s (unknown) date) phen 5 mg-325 1 tab unknown) PO Q6H PRN pain #10 tabs 10/16/21 (unknown) (no (unknown) (unknown) oxycodone-acetamino (unit s (unknown) date) phen [Percocet] unknown) 5-325 mg tablet (unknown) (no (unknown) (unknown) presents with (units ( unknown) date) complaint of unknown) syncopal episode with a near syncopal episode (unknown) (no (unknown) (unknown) reactive to light, (units (unknown) date) extraocular unknown) movements are intact, nares are clear. Throat is (unknown) (no (unknown) (unknown) shows RSR in 3 and (units (unknown) date) AVF with no priors unknown) for comparison. Head CT, chest x-ray and (unknown) (no (unknown) (unknown) substance use type: (unit s (unknown) date) does not use unknown) (unknown) (no (unknown) (unknown) symmetrically (units ( unknown) date) unknown) (unknown) (no (unknown) (unknown) syncopal episode. (units (unknown) date) Patient states he unknown) got up to urinate tonight, he was sitting (unknown) (no (unknown) (unknown) tabs (units (unkno wn) date) unknown) (unknown) (no (unknown) (unknown) urinary. No (units (un known) date) diarrhea or unknown) constipation, no dysuria, urgency or frequency. No new (unknown) (no (unknown) (unknown) vomiting. He has (units (unknown) date) some dizziness unknown) afterwards but did not have any prior to any Result panel 19 (unknown) (no (unknown) (unknown) (no value) (units (unk nown) date) unknown) (unknown) (no (unknown) (unknown) <Electronically (units (unknown) date) signed by Jessica Aguila D.O.> (unknown) (no (unknown) (unknown) <Jessica Aguila DO (unit s (unknown) date) - Last Filed: unknown) 11/08/21 09:01> (unknown) (no (unknown) (unknown) <Arpita Mccain DO (units (unknown) date) - Last Filed: unknown) 11/08/21 06:06> (unknown) (no (unknown) (unknown) [id number] (units (unkn own) date) unknown) (unknown) (no (unknown) (unknown) 05:25 11/08/21 (units (unknown) date) unknown) (unknown) (no (unknown) (unknown) 05:27 11/08/21 (units (unknown) date) unknown) (unknown) (no (unknown) (unknown) 05:30 (units (unkno wn) date) unknown) (unknown) (no (unknown) (unknown) 05:32 11/08/21 (units (unknown) date) unknown) (unknown) (no (unknown) (unknown) 05:34 11/08/21 (units (unknown) date) unknown) (unknown) (no (unknown) (unknown) 05:34 (units (unkno wn) date) unknown) (unknown) (no (unknown) (unknown) 05:35 11/08/21 (units (unknown) date) unknown) (unknown) (no (unknown) (unknown) 05:35 (units (unkno wn) date) unknown) (unknown) (no (unknown) (unknown) 05:37 11/08/21 (units (unknown) date) unknown) (unknown) (no (unknown) (unknown) 06:00 11/08/21 (units (unknown) date) unknown) (unknown) (no (unknown) (unknown) 06:05 06:05 06:05 (units (unknown) date) unknown) (unknown) (no (unknown) (unknown) 06:09 11/08/21 (units (unknown) date) unknown) (unknown) (no (unknown) (unknown) 06:09 (units (unkno wn) date) unknown) (unknown) (no (unknown) (unknown) 07:30 11/08/21 (units (unknown) date) unknown) (unknown) (no (unknown) (unknown) 07:30 (units (unkno wn) date) unknown) (unknown) (no (unknown) (unknown) 07:31 11/08/21 (units (unknown) date) unknown) (unknown) (no (unknown) (unknown) 07:31 (units (unkno wn) date) unknown) (unknown) (no (unknown) (unknown) 08:00 11/08/21 (units (unknown) date) unknown) (unknown) (no (unknown) (unknown) 08:00 (units (unkno wn) date) unknown) (unknown) (no (unknown) (unknown) 11/08/21 05:51 (units (unknown) date) unknown) (unknown) (no (unknown) (unknown) 11/08/21 05:52 (units (unknown) date) unknown) (unknown) (no (unknown) (unknown) 11/08/21 05:57 (units (unknown) date) unknown) (unknown) (no (unknown) (unknown) 11/08/21 06:05 (units (unknown) date) unknown) (unknown) (no (unknown) (unknown) 11/08/21 07:30 (units (unknown) date) unknown) (unknown) (no (unknown) (unknown) 11/08/21 11/08/21 (units (unknown) date) 11/08/21 Range/Units unknown) (unknown) (no (unknown) (unknown) 11/08/21 0901 (units ( unknown) date) unknown) (unknown) (no (unknown) (unknown) 11/08/21 (units (unkno wn) date) Range/Units unknown) (unknown) (no (unknown) (unknown) 11/08/21 (units (unkno wn) date) unknown) (unknown) (no (unknown) (unknown) 1 tab PO Q6H PRN (units (unknown) date) (Reason: pain) Qty: unknown) 10 0RF (unknown) (no (unknown) (unknown) 500 mg PO TID PRN (units (unknown) date) (Reason: Neck pain) unknown) Qty: 18 0RF (unknown) (no (unknown) (unknown) 750 mg PO DAILY (units (unknown) date) Qty: 4 0RF unknown) (unknown) (no (unknown) (unknown) ABD:bowel sounds (units (unknown) date) normal, soft, unknown) non-tender, no guarding, rebound, rigidity, no (unknown) (no (unknown) (unknown) ALT (<50) IU/L (units (unknown) date) unknown) (unknown) (no (unknown) (unknown) ALT 27 (<50) IU/L (units (unknown) date) unknown) (unknown) (no (unknown) (unknown) APTT (26-36) (units (u nknown) date) SECONDS unknown) (unknown) (no (unknown) (unknown) APTT 63 H (26-36) (units (unknown) date) SECONDS unknown) (unknown) (no (unknown) (unknown) AST (17-59) IU/L (units (unknown) date) unknown) (unknown) (no (unknown) (unknown) AST 27 (17-59) IU/L (unit s (unknown) date) unknown) (unknown) (no (unknown) (unknown) Activity (units (unkno wn) date) Restrictions/Additio unknown) nal Instructions: (unknown) (no (unknown) (unknown) Age/Sex: 51 / M (units (unknown) date) unknown) (unknown) (no (unknown) (unknown) Albumin (3.5-5.0) (units (unknown) date) g/dL unknown) (unknown) (no (unknown) (unknown) Albumin 4.4 (units (un known) date) (3.5-5.0) g/dL unknown) (unknown) (no (unknown) (unknown) Albumin/Globulin (units (unknown) date) Ratio (1.0-2.8) unknown) (unknown) (no (unknown) (unknown) Albumin/Globulin (units (unknown) date) Ratio 1.3 (1.0-2.8) unknown) (unknown) (no (unknown) (unknown) Alkaline (units (unkno wn) date) Phosphatase (38-126) unknown) U/L (unknown) (no (unknown) (unknown) Alkaline (units (unkno wn) date) Phosphatase 100 unknown) (38-126) U/L (unknown) (no (unknown) (unknown) Allergies (units (unkn own) date) unknown) (unknown) (no (unknown) (unknown) Allergy/AdvReac (units (unknown) date) Type Severity unknown) Reaction Status Date / Time (unknown) (no (unknown) (unknown) Altered level of (units (unknown) date) conciousness unknown) present: No (unknown) (no (unknown) (unknown) Attestation: I (units (unknown) date) personally reviewed unknown) and interpreted this ECG as follows: (unknown) (no (unknown) (unknown) BUN (9-20) mg/dL (units (unknown) date) unknown) (unknown) (no (unknown) (unknown) BUN 10 (9-20) mg/dL (unit s (unknown) date) unknown) (unknown) (no (unknown) (unknown) BUN/Creatinine (units (unknown) date) Ratio (6-22) unknown) (unknown) (no (unknown) (unknown) BUN/Creatinine (units (unknown) date) Ratio 12.5 (6-22) unknown) (unknown) (no (unknown) (unknown) Baso # (Auto) (units ( unknown) date) (0-100) /uL unknown) (unknown) (no (unknown) (unknown) Baso # (Auto) 0 (units (unknown) date) (0-100) /uL unknown) (unknown) (no (unknown) (unknown) Baso % (Auto) (0-2) (unit s (unknown) date) % unknown) (unknown) (no (unknown) (unknown) Baso % (Auto) 0.4 (units (unknown) date) (0-2) % unknown) (unknown) (no (unknown) (unknown) Blood Pressure (units (unknown) date) 117/77 unknown) (unknown) (no (unknown) (unknown) Blood Pressure (units (unknown) date) 119/85 11/08/21 unknown) 05:25 (unknown) (no (unknown) (unknown) Blood Pressure (units (unknown) date) 119/85 unknown) (unknown) (no (unknown) (unknown) Blood Pressure (units (unknown) date) 121/79 116/80 unknown) (unknown) (no (unknown) (unknown) Blood Pressure (units (unknown) date) 123/79 unknown) (unknown) (no (unknown) (unknown) Blood Pressure (units (unknown) date) 133/89 112/81 unknown) (unknown) (no (unknown) (unknown) Blood Pressure (units (unknown) date) [Orthostatic Lying] unknown) 123/79 (unknown) (no (unknown) (unknown) Blood Pressure (units (unknown) date) [Orthostatic Lying] unknown) (unknown) (no (unknown) (unknown) Blood Pressure (units (unknown) date) [Orthostatic unknown) Sitting] 121/79 (unknown) (no (unknown) (unknown) Blood Pressure (units (unknown) date) [Orthostatic unknown) Sitting] (unknown) (no (unknown) (unknown) Blood Pressure (units (unknown) date) [Orthostatic unknown) Standing] 116/80 (unknown) (no (unknown) (unknown) Blood Pressure (units (unknown) date) [Orthostatic unknown) Standing] (unknown) (no (unknown) (unknown) Blood Pressure (units (unknown) date) unknown) (unknown) (no (unknown) (unknown) CK-MB (CK-2) (units (u nknown) date) (<2.37) ng/mL unknown) (unknown) (no (unknown) (unknown) CK-MB (CK-2) 0.83 (units (unknown) date) (<2.37) ng/mL unknown) (unknown) (no (unknown) (unknown) CK-MB (CK-2) Rel (units (unknown) date) Index (1.5-5.0) % unknown) (unknown) (no (unknown) (unknown) CK-MB (CK-2) Rel (units (unknown) date) Index 0.6 L unknown) (1.5-5.0) % (unknown) (no (unknown) (unknown) COVID19 -Nasal (units (unknown) date) RAPID/Pre-Proc Stat unknown) (unknown) (no (unknown) (unknown) CT head/brain wo (units (unknown) date) con Stat unknown) (unknown) (no (unknown) (unknown) Calcium (8.4-10.2) (units (unknown) date) mg/dL unknown) (unknown) (no (unknown) (unknown) Calcium 8.9 (units (un known) date) (8.4-10.2) mg/dL unknown) (unknown) (no (unknown) (unknown) Carbon Dioxide (units (unknown) date) (22-32) mmol/L unknown) (unknown) (no (unknown) (unknown) Carbon Dioxide 22 (units (unknown) date) (22-32) mmol/L unknown) (unknown) (no (unknown) (unknown) Chief Complaint: (units (unknown) date) Fall unknown) (unknown) (no (unknown) (unknown) Chloride (98-107) (units (unknown) date) mmol/L unknown) (unknown) (no (unknown) (unknown) Chloride 108 H (units (unknown) date) (98-107) mmol/L unknown) (unknown) (no (unknown) (unknown) Clinical (units (unkno wn) date) Impression: unknown) (unknown) (no (unknown) (unknown) Complete Blood (units (unknown) date) Count AUTO DIFF Stat unknown) (unknown) (no (unknown) (unknown) Comprehensive (units ( unknown) date) Metabolic Panel Stat unknown) (unknown) (no (unknown) (unknown) Course (units (unkno wn) date) unknown) (unknown) (no (unknown) (unknown) Creatinine (units (unk nown) date) (0.66-1.25) mg/dL unknown) (unknown) (no (unknown) (unknown) Creatinine 0.80 (units (unknown) date) (0.66-1.25) mg/dL unknown) (unknown) (no (unknown) (unknown) : 1970 (units (unknown) date) Acct:[id number] unknown) (unknown) (no (unknown) (unknown) Date of Service: (units (unknown) date) 11/08/21 unknown) (unknown) (no (unknown) (unknown) Denies neck or back (unit s (unknown) date) pain. No chest pain unknown) or shortness of breath no nausea or (unknown) (no (unknown) (unknown) Departure (units (unkn own) date) unknown) (unknown) (no (unknown) (unknown) Discharge Plan (units (unknown) date) unknown) (unknown) (no (unknown) (unknown) Discontinued (units (u nknown) date) Medications unknown) (unknown) (no (unknown) (unknown) Distracting Injury (units (unknown) date) Present: No unknown) (unknown) (no (unknown) (unknown) ECG Data (units (unkno wn) date) unknown) (unknown) (no (unknown) (unknown) ED Orders (units (unkn own) date) unknown) (unknown) (no (unknown) (unknown) EKG-12 Lead Stat (units (unknown) date) unknown) (unknown) (no (unknown) (unknown) ER Physician: (units ( unknown) date) Jessica Aguila D.O. unknown) (unknown) (no (unknown) (unknown) Emergency Report (units (unknown) date) unknown) (unknown) (no (unknown) (unknown) Eos # (Auto) (units (u nknown) date) (0-450) /uL unknown) (unknown) (no (unknown) (unknown) Eos # (Auto) 300 (units (unknown) date) (0-450) /uL unknown) (unknown) (no (unknown) (unknown) Eos % (Auto) (2-4) (units (unknown) date) % unknown) (unknown) (no (unknown) (unknown) Eos % (Auto) 3.4 (units (unknown) date) (2-4) % unknown) (unknown) (no (unknown) (unknown) Estimated GFR > 60 (units (unknown) date) (>60) mL/min unknown) (unknown) (no (unknown) (unknown) Estimated GFR (>60) (unit s (unknown) date) mL/min unknown) (unknown) (no (unknown) (unknown) Exam Narrative: (units (unknown) date) unknown) (unknown) (no (unknown) (unknown) Exam (units (unkno wn) date) unknown) (unknown) (no (unknown) (unknown) Family History (units (unknown) date) (Reviewed 11/08/21 @ unknown) 05:56 by Arpita Mccain DO) (unknown) (no (unknown) (unknown) Father Healthy (units (unknown) date) adult unknown) (unknown) (no (unknown) (unknown) Focal Neurologic (units (unknown) date) deficit present: No unknown) (unknown) (no (unknown) (unknown) Follow up with your (unit s (unknown) date) physician for unknown) recheck. (unknown) (no (unknown) (unknown) GCS (units (unkno wn) date) unknown) (unknown) (no (unknown) (unknown) GEN: Male appears (units (unknown) date) older than stated unknown) age male, alert and oriented x 3, patient (unknown) (no (unknown) (unknown) :No CVA (units (unkn own) date) tenderness unknown) (unknown) (no (unknown) (unknown) General (units (unkno wn) date) unknown) (unknown) (no (unknown) (unknown) [place]mi coma scale (units (unknown) date) eye opening: unknown) Spontaneous (unknown) (no (unknown) (unknown) Funmi coma scale (units (unknown) date) motor response: [place] unknown) commands (unknown) (no (unknown) (unknown) [place] coma scale (units (unknown) date) total score: 15 unknown) (unknown) (no (unknown) (unknown) [place] coma scale (units (unknown) date) verbal response: unknown) Orientated (unknown) (no (unknown) (unknown) Globulin (1.7-4.1) (units (unknown) date) g/dL unknown) (unknown) (no (unknown) (unknown) Globulin 3.5 (units (u nknown) date) (1.7-4.1) g/dL unknown) (unknown) (no (unknown) (unknown) Glucose (70-100) (units (unknown) date) mg/dL unknown) (unknown) (no (unknown) (unknown) Glucose 107 H (units ( unknown) date) (70-100) mg/dL unknown) (unknown) (no (unknown) (unknown) HEART: Regular rate (unit s (unknown) date) and rhythm without unknown) murmur, clicks, rubs. (unknown) (no (unknown) (unknown) HEENT: Patient has (units (unknown) date) a small hematoma unknown) posterior scalp, pupils are equal round (unknown) (no (unknown) (unknown) HPI - Fall (units (unk nown) date) unknown) (unknown) (no (unknown) (unknown) HPI Narrative: (units (unknown) date) unknown) (unknown) (no (unknown) (unknown) Hct (41-53) % (units ( unknown) date) unknown) (unknown) (no (unknown) (unknown) Hct 44.8 (41-53) % (units (unknown) date) unknown) (unknown) (no (unknown) (unknown) Healthy adult male (units (unknown) date) unknown) (unknown) (no (unknown) (unknown) Hgb (13.5-17.5) (units (unknown) date) g/dL unknown) (unknown) (no (unknown) (unknown) Hgb 15.4 (units (unkno wn) date) (13.5-17.5) g/dL unknown) (unknown) (no (unknown) (unknown) History of Present (units (unknown) date) Illness unknown) (unknown) (no (unknown) (unknown) INR (0.9-1.3) (units ( unknown) date) unknown) (unknown) (no (unknown) (unknown) INR 1.1 (0.9-1.3) (units (unknown) date) unknown) (unknown) (no (unknown) (unknown) Initial Vital Signs (unit s (unknown) date) unknown) (unknown) (no (unknown) (unknown) Initial Vital (units ( unknown) date) Signs: unknown) (unknown) (no (unknown) (unknown) Instructions: DI (units (unknown) date) for Syncope in unknown) Adults (Fainting) (unknown) (no (unknown) (unknown) Interpretation: (units (unknown) date) unknown) (unknown) (no (unknown) (unknown) Intoxication (units (u nknown) date) present: No unknown) (unknown) (no (unknown) (unknown) [facility] (units (unknown) date) [address] unknown) [place] [address] (unknown) (no (unknown) (unknown) LUNGS:Lungs clear (units (unknown) date) to auscultation, no unknown) wheezes, rales, crackles, chest moves (unknown) (no (unknown) (unknown) Lab Data (units (unkno wn) date) unknown) (unknown) (no (unknown) (unknown) Lab Results (units (un known) date) unknown) (unknown) (no (unknown) (unknown) Labs: (units (unkno wn) date) unknown) (unknown) (no (unknown) (unknown) Limitations: no (units (unknown) date) limitations unknown) (unknown) (no (unknown) (unknown) Lipase (23-300) U/L (unit s (unknown) date) unknown) (unknown) (no (unknown) (unknown) Lipase 46 (23-300) (units (unknown) date) U/L unknown) (unknown) (no (unknown) (unknown) Lipase Stat (units (un known) date) unknown) (unknown) (no (unknown) (unknown) Lymph # (Auto) (units (unknown) date) (4831-9657) /uL unknown) (unknown) (no (unknown) (unknown) Lymph # (Auto) 1700 (unit s (unknown) date) (3021-1126) /uL unknown) (unknown) (no (unknown) (unknown) Lymph % (Auto) (units (unknown) date) (25-40) % unknown) (unknown) (no (unknown) (unknown) Lymph % (Auto) 20.1 (unit s (unknown) date) L (25-40) % unknown) (unknown) (no (unknown) (unknown) MCH (26-34) PG (units (unknown) date) unknown) (unknown) (no (unknown) (unknown) MCH 30.6 (26-34) PG (unit s (unknown) date) unknown) (unknown) (no (unknown) (unknown) MCHC (30-36) % (units (unknown) date) unknown) (unknown) (no (unknown) (unknown) MCHC 34.3 (30-36) % (unit s (unknown) date) unknown) (unknown) (no (unknown) (unknown) MCV (80-100) fL (units (unknown) date) unknown) (unknown) (no (unknown) (unknown) MCV 89.3 (80-100) (units (unknown) date) fL unknown) (unknown) (no (unknown) (unknown) MDM - Fall (units (unk nown) date) unknown) (unknown) (no (unknown) (unknown) MDM Narrative (units ( unknown) date) unknown) (unknown) (no (unknown) (unknown) MSCL: Non-tender, (units (unknown) date) no muscle atrophy, unknown) muscles strength 5/5 upper and lower (unknown) (no (unknown) (unknown) Medical History (units (unknown) date) (Reviewed 11/08/21 @ unknown) 05:56 by Arpita Mccain DO) (unknown) (no (unknown) (unknown) Medical decision (units (unknown) date) making narrative: unknown) (unknown) (no (unknown) (unknown) Medication (units (unk nown) date) Instructions unknown) Recorded (unknown) (no (unknown) (unknown) Midline spinal (units (unknown) date) tenderness present: unknown) No (unknown) (no (unknown) (unknown) Miscellaneous,[place] (unit s (unknown) date) MD hiwot [Primary Care unknown) Provider] (unknown) (no (unknown) (unknown) Mode of arrival: (units (unknown) date) Ambulatory unknown) (unknown) (no (unknown) (unknown) Story # (Auto) (units ( unknown) date) (0-900) /uL unknown) (unknown) (no (unknown) (unknown) Story # (Auto) 600 (units (unknown) date) (0-900) /uL unknown) (unknown) (no (unknown) (unknown) Story % (Auto) (units ( unknown) date) (3-14) % unknown) (unknown) (no (unknown) (unknown) Story % (Auto) 7.4 (units (unknown) date) (3-14) % unknown) (unknown) (no (unknown) (unknown) Mother Asthma (units ( unknown) date) unknown) (unknown) (no (unknown) (unknown) NEURO:CN 2-12 (units ( unknown) date) intact, sensation unknown) normal, reflexes 2/4 upper and lower (unknown) (no (unknown) (unknown) NT-Pro-B Natriuret (units (unknown) date) Pep (<125) pg/mL unknown) (unknown) (no (unknown) (unknown) NT-Pro-B Natriuret (units (unknown) date) Pep 77 (<125) pg/mL unknown) (unknown) (no (unknown) (unknown) NT-proBNP (units (unkn own) date) (BNP-Adult 18+) Stat unknown) (unknown) (no (unknown) (unknown) Narrative (units (unkn own) date) unknown) (unknown) (no (unknown) (unknown) Neut # (Auto) (units ( unknown) date) (4162-2358) /uL unknown) (unknown) (no (unknown) (unknown) Neut # (Auto) 5700 (units (unknown) date) (5340-1631) /uL unknown) (unknown) (no (unknown) (unknown) Neut % (Auto) (units ( unknown) date) (50-75) % unknown) (unknown) (no (unknown) (unknown) Neut % (Auto) 68.7 (units (unknown) date) (50-75) % unknown) (unknown) (no (unknown) (unknown) Nexus Criteria for (units (unknown) date) C-spine: 0 unknown) (unknown) (no (unknown) (unknown) Nexus Score for (units (unknown) date) C-Spine unknown) (unknown) (no (unknown) (unknown) No Action (units (unkn own) date) unknown) (unknown) (no (unknown) (unknown) No Known Drug (units ( unknown) date) Allergies Allergy unknown) Verified 10/16/21 10:41 (unknown) (no (unknown) (unknown) No significant past (unit s (unknown) date) surgical history unknown) (unknown) (no (unknown) (unknown) Ordered: (units (unkno wn) date) unknown) (unknown) (no (unknown) (unknown) Orders (units (unkno wn) date) unknown) (unknown) (no (unknown) (unknown) Oxygen Delivery (units (unknown) date) Method 11/08/21 unknown) 05:25 (unknown) (no (unknown) (unknown) Oxygen Delivery (units (unknown) date) Method Room Air unknown) (unknown) (no (unknown) (unknown) Oxygen Delivery (units (unknown) date) Method unknown) (unknown) (no (unknown) (unknown) PT (10.1-12.7) (units (unknown) date) SECONDS unknown) (unknown) (no (unknown) (unknown) PT 12.2 (10.1-12.7) (unit s (unknown) date) SECONDS unknown) (unknown) (no (unknown) (unknown) Partial (units (unkno wn) date) Thromboplastin Time unknown) Stat (unknown) (no (unknown) (unknown) Patient (units (unkno wn) date) Disposition: Home unknown) (unknown) (no (unknown) (unknown) Patient History (units (unknown) date) unknown) (unknown) (no (unknown) (unknown) Patient signed out (units (unknown) date) to me by Dr. Mccain. I unknown) seen evaluated patient myself. Sounds (unknown) (no (unknown) (unknown) Patient's (units (unkn own) date) orthostatics here unknown) are negative this morning. (unknown) (no (unknown) (unknown) Patient: (units (unkno wn) date) Wm Sutton R unknown) MR#: M (unknown) (no (unknown) (unknown) Please return for (units (unknown) date) new or worsening unknown) symptoms, recurrent passing out, new (unknown) (no (unknown) (unknown) Plt Count (150-400) (unit s (unknown) date) X103/uL unknown) (unknown) (no (unknown) (unknown) Plt Count 228 (units ( unknown) date) (150-400) X103/uL unknown) (unknown) (no (unknown) (unknown) Potassium (3.4-5.1) (unit s (unknown) date) mmol/L unknown) (unknown) (no (unknown) (unknown) Potassium 3.3 L (units (unknown) date) (3.4-5.1) mmol/L unknown) (unknown) (no (unknown) (unknown) Prescriptions: (units (unknown) date) unknown) (unknown) (no (unknown) (unknown) Previous Rx's (units ( unknown) date) unknown) (unknown) (no (unknown) (unknown) Prior ECG tracings: (unit s (unknown) date) not available for unknown) review (unknown) (no (unknown) (unknown) Prothrombin Time (units (unknown) date) INR Stat unknown) (unknown) (no (unknown) (unknown) Pulse Oximetry 97 (units (unknown) date) 97 unknown) (unknown) (no (unknown) (unknown) Pulse Oximetry 97 (units (unknown) date) unknown) (unknown) (no (unknown) (unknown) Pulse Oximetry 99 (units (unknown) date) 11/08/21 05:25 unknown) (unknown) (no (unknown) (unknown) Pulse Oximetry 99 (units (unknown) date) 97 97 unknown) (unknown) (no (unknown) (unknown) Pulse Rate 69 (units ( unknown) date) unknown) (unknown) (no (unknown) (unknown) Pulse Rate 74 65 (units (unknown) date) unknown) (unknown) (no (unknown) (unknown) Pulse Rate 75 72 (units (unknown) date) unknown) (unknown) (no (unknown) (unknown) Pulse Rate 79 87 (units (unknown) date) unknown) (unknown) (no (unknown) (unknown) Pulse Rate 88 (units ( unknown) date) 11/08/21 05:25 unknown) (unknown) (no (unknown) (unknown) Pulse Rate 88 88 86 (unit s (unknown) date) unknown) (unknown) (no (unknown) (unknown) Pulse Rate 91 H (units (unknown) date) unknown) (unknown) (no (unknown) (unknown) Pulse Rate (units (unk nown) date) [Orthostatic Lying] unknown) 78 (unknown) (no (unknown) (unknown) Pulse Rate (units (unk nown) date) [Orthostatic Lying] unknown) (unknown) (no (unknown) (unknown) Pulse Rate (units (unk nown) date) [Orthostatic unknown) Sitting] 75 (unknown) (no (unknown) (unknown) Pulse Rate (units (unk nown) date) [Orthostatic unknown) Sitting] (unknown) (no (unknown) (unknown) Pulse Rate (units (unk nown) date) [Orthostatic unknown) Standing] 95 H (unknown) (no (unknown) (unknown) Pulse Rate (units (unk nown) date) [Orthostatic unknown) Standing] (unknown) (no (unknown) (unknown) RBC (4.5-5.9) (units ( unknown) date) X106/uL unknown) (unknown) (no (unknown) (unknown) RBC 5.02 (4.5-5.9) (units (unknown) date) X106/uL unknown) (unknown) (no (unknown) (unknown) RDW (11.6-14.8) % (units (unknown) date) unknown) (unknown) (no (unknown) (unknown) RDW 13.7 (units (unkno wn) date) (11.6-14.8) % unknown) (unknown) (no (unknown) (unknown) ROS Unobtainable: (units (unknown) date) All systems reviewed unknown) + are unremarkable except as noted in HPI (unknown) (no (unknown) (unknown) Referrals: (units (unk nown) date) unknown) (unknown) (no (unknown) (unknown) Related Data (units (u nknown) date) unknown) (unknown) (no (unknown) (unknown) Respiratory Rate 18 (unit s (unknown) date) 11/08/21 05:25 unknown) (unknown) (no (unknown) (unknown) Respiratory Rate 18 (unit s (unknown) date) unknown) (unknown) (no (unknown) (unknown) Respiratory Rate 20 (unit s (unknown) date) unknown) (unknown) (no (unknown) (unknown) Respiratory Rate 21 (unit s (unknown) date) 19 unknown) (unknown) (no (unknown) (unknown) Respiratory Rate 22 (unit s (unknown) date) unknown) (unknown) (no (unknown) (unknown) Respiratory Rate (units (unknown) date) unknown) (unknown) (no (unknown) (unknown) Result diagrams: (units (unknown) date) unknown) (unknown) (no (unknown) (unknown) Review of Systems (units (unknown) date) unknown) (unknown) (no (unknown) (unknown) SARS-CoV-2 (PCR) (units (unknown) date) (Negative) unknown) (unknown) (no (unknown) (unknown) SARS-CoV-2 (PCR) (units (unknown) date) Negative (Negative) unknown) (unknown) (no (unknown) (unknown) Scores (units (unkno wn) date) unknown) (unknown) (no (unknown) (unknown) Signed By: (units (unk nown) date) unknown) (unknown) (no (unknown) (unknown) Sinus rhythm rate (units (unknown) date) of 77 [place] 152 QRS 88 unknown) QTC 436. RSR in [address] (unknown) (no (unknown) (unknown) Sister Healthy (units (unknown) date) adult unknown) (unknown) (no (unknown) (unknown) Smoking Status: (units (unknown) date) Current every day unknown) smoker (unknown) (no (unknown) (unknown) Social History (units (unknown) date) (Reviewed 11/08/21 @ unknown) 05:56 by Arpita Mccain DO) (unknown) (no (unknown) (unknown) Sodium (137-145) (units (unknown) date) mmol/L unknown) (unknown) (no (unknown) (unknown) Sodium 141 (units (unk nown) date) (137-145) mmol/L unknown) (unknown) (no (unknown) (unknown) Sodium Chloride (units (unknown) date) (Normal Saline 0.9%) unknown) 1,000 mls @ 1,000 mls/hr IV BOLUS ONE (unknown) (no (unknown) (unknown) Source: patient (units (unknown) date) unknown) (unknown) (no (unknown) (unknown) Stand Alone Forms: (units (unknown) date) Work Release Note unknown) (unknown) (no (unknown) (unknown) Stated Complaint: (units (unknown) date) low blood pressure, unknown) passed out hit head (unknown) (no (unknown) (unknown) Stop: 11/08/21 (units (unknown) date) 06:50 unknown) (unknown) (no (unknown) (unknown) Substance Use Type: (unit s (unknown) date) does not use unknown) (unknown) (no (unknown) (unknown) Surgical History (units (unknown) date) (Reviewed 11/08/21 @ unknown) 05:56 by Arpita Mccain DO) (unknown) (no (unknown) (unknown) Syncope (units (unkno wn) date) unknown) (unknown) (no (unknown) (unknown) Temperature 98 F (units (unknown) date) 11/08/21 05:25 unknown) (unknown) (no (unknown) (unknown) Temperature 98 F (units (unknown) date) unknown) (unknown) (no (unknown) (unknown) Temperature (units (un known) date) unknown) (unknown) (no (unknown) (unknown) This is a (units (unkn own) date) 51-year-old male unknown) with history of neuropathy and tobacco abuse who (unknown) (no (unknown) (unknown) This is a (units (unkn own) date) 51-year-old who unknown) takes gabapentin daily for neuropathy from prior (unknown) (no (unknown) (unknown) Time Seen by (units (u nknown) date) Provider: 11/08/21 unknown) 05:42 (unknown) (no (unknown) (unknown) Tobacco dependence (units (unknown) date) unknown) (unknown) (no (unknown) (unknown) Total Bilirubin (units (unknown) date) (0.2-1.3) mg/dL unknown) (unknown) (no (unknown) (unknown) Total Bilirubin 0.7 (unit s (unknown) date) (0.2-1.3) mg/dL unknown) (unknown) (no (unknown) (unknown) Total Creatine (units (unknown) date) Kinase (55-170) U/L unknown) (unknown) (no (unknown) (unknown) Total Creatine (units (unknown) date) Kinase 140 (55-170) unknown) U/L (unknown) (no (unknown) (unknown) Total Protein (units ( unknown) date) (6.3-8.2) g/dL unknown) (unknown) (no (unknown) (unknown) Total Protein 7.9 (units (unknown) date) (6.3-8.2) g/dL unknown) (unknown) (no (unknown) (unknown) Troponin + CK (units ( unknown) date) Cardiac Panel Stat unknown) (unknown) (no (unknown) (unknown) Troponin I < 0.012 (units (unknown) date) (0.01-0.034) ng/mL unknown) (unknown) (no (unknown) (unknown) Troponin I (units (unk nown) date) (0.01-0.034) ng/mL unknown) (unknown) (no (unknown) (unknown) Visit Report Forms: (unit s (unknown) date) Patient Portal/API unknown) (unknown) (no (unknown) (unknown) Vital Signs - 8 hr (units (unknown) date) unknown) (unknown) (no (unknown) (unknown) Vital Signs (units (un known) date) unknown) (unknown) (no (unknown) (unknown) Vital signs: (units (u nknown) date) unknown) (unknown) (no (unknown) (unknown) WBC (4.5-11.0) (units (unknown) date) X103/uL unknown) (unknown) (no (unknown) (unknown) WBC 8.4 (4.5-11.0) (units (unknown) date) X103/uL unknown) (unknown) (no (unknown) (unknown) XR chest 1V Stat (units (unknown) date) unknown) (unknown) (no (unknown) (unknown) [Embedded Image Not (unit s (unknown) date) Available] unknown) (unknown) (no (unknown) (unknown) abdominal, back or (units (unknown) date) flank pain. Patient unknown) denies any incontinence fecal or (unknown) (no (unknown) (unknown) alcohol intake (units (unknown) date) frequency: unknown) holidays/special occasions only (unknown) (no (unknown) (unknown) alcohol intake: (units (unknown) date) never unknown) (unknown) (no (unknown) (unknown) and below (units (unkn own) date) unknown) (unknown) (no (unknown) (unknown) another very short (units (unknown) date) episode where he unknown) states he did not completely pass out but (unknown) (no (unknown) (unknown) appears to be in (units (unknown) date) mild distress. unknown) (unknown) (no (unknown) (unknown) as though he had (units (unknown) date) micturition syncope unknown) stood up again to quickly. Blood work is (unknown) (no (unknown) (unknown) carpal tunnel (units ( unknown) date) surgery and unknown) orthopedic fracture. Patient presents with possible (unknown) (no (unknown) (unknown) clear without any (units (unknown) date) exudates, erythema, unknown) tonsillar enlargement or uvular deviation, (unknown) (no (unknown) (unknown) comparison (units (unk nown) date) unknown) (unknown) (no (unknown) (unknown) denies illicit. (units (unknown) date) Patient notes he has unknown) not had any prior syncopal episodes. (unknown) (no (unknown) (unknown) did go to the floor (unit s (unknown) date) for a couple unknown) seconds. He denies headache pre or post. (unknown) (no (unknown) (unknown) elevation (units (unkn own) date) depression noted unknown) elsewhere. Patient does not have priors for (unknown) (no (unknown) (unknown) extremities, full (units (unknown) date) range of motion, unknown) normal gait (unknown) (no (unknown) (unknown) extremities. (units (u nknown) date) unknown) (unknown) (no (unknown) (unknown) feeling better. (units (unknown) date) unknown) (unknown) (no (unknown) (unknown) floor. States he (units (unknown) date) hit the back of his unknown) head he has a goose egg on the back of his (unknown) (no (unknown) (unknown) for fracture. He (units (unknown) date) does use tobacco unknown) daily, denies recent or regular alcohol use, (unknown) (no (unknown) (unknown) head that is (units (u nknown) date) tender. Patient unknown) notes that he then got walked to the bedroom had (unknown) (no (unknown) (unknown) headaches, chest (units (unknown) date) pain, shortness of unknown) breath, persistent vomiting, loss of bowel (unknown) (no (unknown) (unknown) household members: (units (unknown) date) spouse and family unknown) (unknown) (no (unknown) (unknown) immediately (units (un known) date) thereafter after unknown) urinating on the toilet. Patient had EKG which (unknown) (no (unknown) (unknown) lab work. (units (unkn own) date) unknown) (unknown) (no (unknown) (unknown) levofloxacin 750 mg (unit s (unknown) date) tablet 750 mg PO unknown) DAILY #4 tabs 06/10/18 (unknown) (no (unknown) (unknown) levofloxacin 750 mg (unit s (unknown) date) tablet unknown) (unknown) (no (unknown) (unknown) masses noted, no (units (unknown) date) hepatosplenomegaly unknown) (unknown) (no (unknown) (unknown) medications. Denies (unit s (unknown) date) surgeries besides unknown) his carpal tunnel and surgical fixation (unknown) (no (unknown) (unknown) methocarbamol 500 (units (unknown) date) mg tablet 500 mg PO unknown) TID PRN Neck pain #18 10/16/21 (unknown) (no (unknown) (unknown) methocarbamol 500 (units (unknown) date) mg tablet unknown) (unknown) (no (unknown) (unknown) mg tablet (units (unkn own) date) (Percocet) unknown) (unknown) (no (unknown) (unknown) negative COVID is (units (unknown) date) negative. Patient unknown) has no neurologic deficits. Overall (unknown) (no (unknown) (unknown) nontender sees (units (unknown) date) range of motion unknown) (unknown) (no (unknown) (unknown) numbness, tingling (units (unknown) date) or weakness of unknown) extremities. He does not take any other daily (unknown) (no (unknown) (unknown) on the toilet when (units (unknown) date) he stood up the next unknown) thing he remembers is being on the (unknown) (no (unknown) (unknown) or bladder control (units (unknown) date) or other new or unknown) concerning symptoms. (unknown) (no (unknown) (unknown) oxycodone-acetamino (unit s (unknown) date) phen 5 mg-325 1 tab unknown) PO Q6H PRN pain #10 tabs 10/16/21 (unknown) (no (unknown) (unknown) oxycodone-acetamino (unit s (unknown) date) phen [Percocet] unknown) 5-325 mg tablet (unknown) (no (unknown) (unknown) presents with (units ( unknown) date) complaint of unknown) syncopal episode with a near syncopal episode (unknown) (no (unknown) (unknown) reactive to light, (units (unknown) date) extraocular unknown) movements are intact, nares are clear. Throat is (unknown) (no (unknown) (unknown) shows RSR in 3 and (units (unknown) date) AVF with no priors unknown) for comparison. Head CT, chest x-ray and (unknown) (no (unknown) (unknown) substance use type: (unit s (unknown) date) does not use unknown) (unknown) (no (unknown) (unknown) symmetrically (units ( unknown) date) unknown) (unknown) (no (unknown) (unknown) syncopal episode. (units (unknown) date) Patient states he unknown) got up to urinate tonight, he was sitting (unknown) (no (unknown) (unknown) tabs (units (unkno wn) date) unknown) (unknown) (no (unknown) (unknown) urinary. No (units (un known) date) diarrhea or unknown) constipation, no dysuria, urgency or frequency. No new (unknown) (no (unknown) (unknown) vomiting. He has (units (unknown) date) some dizziness unknown) afterwards but did not have any prior to any Result panel 20 (unknown) (no (unknown) (unknown) (no value) (units (unk nown) date) unknown) (unknown) (no (unknown) (unknown) <Electronically (units (unknown) date) signed by Jessica Aguila D.O.> (unknown) (no (unknown) (unknown) <Electronically (units (unknown) date) signed by Arpita Beverly unknownPaulie Mccain D.O.> (unknown) (no (unknown) (unknown) <Jessica Aguila DO (unit s (unknown) date) - Last Filed: unknown) 11/08/21 09:01> (unknown) (no (unknown) (unknown) <Arpita Mccain DO (units (unknown) date) - Last Filed: unknown) 11/09/21 06:52> (unknown) (no (unknown) (unknown) [id number] (units (unkn own) date) unknown) (unknown) (no (unknown) (unknown) 05:25 11/08/21 (units (unknown) date) unknown) (unknown) (no (unknown) (unknown) 05:27 11/08/21 (units (unknown) date) unknown) (unknown) (no (unknown) (unknown) 05:30 (units (unkno wn) date) unknown) (unknown) (no (unknown) (unknown) 05:32 11/08/21 (units (unknown) date) unknown) (unknown) (no (unknown) (unknown) 05:34 11/08/21 (units (unknown) date) unknown) (unknown) (no (unknown) (unknown) 05:34 (units (unkno wn) date) unknown) (unknown) (no (unknown) (unknown) 05:35 11/08/21 (units (unknown) date) unknown) (unknown) (no (unknown) (unknown) 05:35 (units (unkno wn) date) unknown) (unknown) (no (unknown) (unknown) 05:37 11/08/21 (units (unknown) date) unknown) (unknown) (no (unknown) (unknown) 06:00 11/08/21 (units (unknown) date) unknown) (unknown) (no (unknown) (unknown) 06:05 06:05 06:05 (units (unknown) date) unknown) (unknown) (no (unknown) (unknown) 06:09 11/08/21 (units (unknown) date) unknown) (unknown) (no (unknown) (unknown) 06:09 (units (unkno wn) date) unknown) (unknown) (no (unknown) (unknown) 07:30 11/08/21 (units (unknown) date) unknown) (unknown) (no (unknown) (unknown) 07:30 (units (unkno wn) date) unknown) (unknown) (no (unknown) (unknown) 07:31 11/08/21 (units (unknown) date) unknown) (unknown) (no (unknown) (unknown) 07:31 (units (unkno wn) date) unknown) (unknown) (no (unknown) (unknown) 08:00 11/08/21 (units (unknown) date) unknown) (unknown) (no (unknown) (unknown) 08:00 (units (unkno wn) date) unknown) (unknown) (no (unknown) (unknown) 11/08/21 06:05 (units (unknown) date) unknown) (unknown) (no (unknown) (unknown) 11/08/21 11/08/21 (units (unknown) date) 11/08/21 Range/Units unknown) (unknown) (no (unknown) (unknown) 11/08/21 0901 (units ( unknown) date) unknown) (unknown) (no (unknown) (unknown) 11/08/21 (units (unkno wn) date) Range/Units unknown) (unknown) (no (unknown) (unknown) 11/08/21 (units (unkno wn) date) unknown) (unknown) (no (unknown) (unknown) 11/09/21 0652 (units ( unknown) date) unknown) (unknown) (no (unknown) (unknown) 1 tab PO Q6H PRN (units (unknown) date) (Reason: pain) Qty: unknown) 10 0RF (unknown) (no (unknown) (unknown) 500 mg PO TID PRN (units (unknown) date) (Reason: Neck pain) unknown) Qty: 18 0RF (unknown) (no (unknown) (unknown) 750 mg PO DAILY (units (unknown) date) Qty: 4 0RF unknown) (unknown) (no (unknown) (unknown) ABD:bowel sounds (units (unknown) date) normal, soft, unknown) non-tender, no guarding, rebound, rigidity, no (unknown) (no (unknown) (unknown) ALT (<50) IU/L (units (unknown) date) unknown) (unknown) (no (unknown) (unknown) ALT 27 (<50) IU/L (units (unknown) date) unknown) (unknown) (no (unknown) (unknown) APTT (26-36) (units (u nknown) date) SECONDS unknown) (unknown) (no (unknown) (unknown) APTT 63 H (26-36) (units (unknown) date) SECONDS unknown) (unknown) (no (unknown) (unknown) AST (17-59) IU/L (units (unknown) date) unknown) (unknown) (no (unknown) (unknown) AST 27 (17-59) IU/L (unit s (unknown) date) unknown) (unknown) (no (unknown) (unknown) Activity (units (unkno wn) date) Restrictions/Additio unknown) nal Instructions: (unknown) (no (unknown) (unknown) Age/Sex: 51 / M (units (unknown) date) unknown) (unknown) (no (unknown) (unknown) Albumin (3.5-5.0) (units (unknown) date) g/dL unknown) (unknown) (no (unknown) (unknown) Albumin 4.4 (units (un known) date) (3.5-5.0) g/dL unknown) (unknown) (no (unknown) (unknown) Albumin/Globulin (units (unknown) date) Ratio (1.0-2.8) unknown) (unknown) (no (unknown) (unknown) Albumin/Globulin (units (unknown) date) Ratio 1.3 (1.0-2.8) unknown) (unknown) (no (unknown) (unknown) Alkaline (units (unkno wn) date) Phosphatase (38-126) unknown) U/L (unknown) (no (unknown) (unknown) Alkaline (units (unkno wn) date) Phosphatase 100 unknown) (38-126) U/L (unknown) (no (unknown) (unknown) Allergies (units (unkn own) date) unknown) (unknown) (no (unknown) (unknown) Allergy/AdvReac (units (unknown) date) Type Severity unknown) Reaction Status Date / Time (unknown) (no (unknown) (unknown) Altered level of (units (unknown) date) conciousness unknown) present: No (unknown) (no (unknown) (unknown) Attestation: I (units (unknown) date) personally reviewed unknown) and interpreted this ECG as follows: (unknown) (no (unknown) (unknown) BUN (9-20) mg/dL (units (unknown) date) unknown) (unknown) (no (unknown) (unknown) BUN 10 (9-20) mg/dL (unit s (unknown) date) unknown) (unknown) (no (unknown) (unknown) BUN/Creatinine (units (unknown) date) Ratio (6-22) unknown) (unknown) (no (unknown) (unknown) BUN/Creatinine (units (unknown) date) Ratio 12.5 (6-22) unknown) (unknown) (no (unknown) (unknown) Baso # (Auto) (units ( unknown) date) (0-100) /uL unknown) (unknown) (no (unknown) (unknown) Baso # (Auto) 0 (units (unknown) date) (0-100) /uL unknown) (unknown) (no (unknown) (unknown) Baso % (Auto) (0-2) (unit s (unknown) date) % unknown) (unknown) (no (unknown) (unknown) Baso % (Auto) 0.4 (units (unknown) date) (0-2) % unknown) (unknown) (no (unknown) (unknown) Blood Pressure (units (unknown) date) 117/77 unknown) (unknown) (no (unknown) (unknown) Blood Pressure (units (unknown) date) 119/85 11/08/21 unknown) 05:25 (unknown) (no (unknown) (unknown) Blood Pressure (units (unknown) date) 119/85 unknown) (unknown) (no (unknown) (unknown) Blood Pressure (units (unknown) date) 121/79 116/80 unknown) (unknown) (no (unknown) (unknown) Blood Pressure (units (unknown) date) 123/79 unknown) (unknown) (no (unknown) (unknown) Blood Pressure (units (unknown) date) 133/89 112/81 unknown) (unknown) (no (unknown) (unknown) Blood Pressure (units (unknown) date) [Orthostatic Lying] unknown) 123/79 (unknown) (no (unknown) (unknown) Blood Pressure (units (unknown) date) [Orthostatic Lying] unknown) (unknown) (no (unknown) (unknown) Blood Pressure (units (unknown) date) [Orthostatic unknown) Sitting] 121/79 (unknown) (no (unknown) (unknown) Blood Pressure (units (unknown) date) [Orthostatic unknown) Sitting] (unknown) (no (unknown) (unknown) Blood Pressure (units (unknown) date) [Orthostatic unknown) Standing] 116/80 (unknown) (no (unknown) (unknown) Blood Pressure (units (unknown) date) [Orthostatic unknown) Standing] (unknown) (no (unknown) (unknown) Blood Pressure (units (unknown) date) unknown) (unknown) (no (unknown) (unknown) CK-MB (CK-2) (units (u nknown) date) (<2.37) ng/mL unknown) (unknown) (no (unknown) (unknown) CK-MB (CK-2) 0.83 (units (unknown) date) (<2.37) ng/mL unknown) (unknown) (no (unknown) (unknown) CK-MB (CK-2) Rel (units (unknown) date) Index (1.5-5.0) % unknown) (unknown) (no (unknown) (unknown) CK-MB (CK-2) Rel (units (unknown) date) Index 0.6 L unknown) (1.5-5.0) % (unknown) (no (unknown) (unknown) Calcium (8.4-10.2) (units (unknown) date) mg/dL unknown) (unknown) (no (unknown) (unknown) Calcium 8.9 (units (un known) date) (8.4-10.2) mg/dL unknown) (unknown) (no (unknown) (unknown) Carbon Dioxide (units (unknown) date) (22-32) mmol/L unknown) (unknown) (no (unknown) (unknown) Carbon Dioxide 22 (units (unknown) date) (22-32) mmol/L unknown) (unknown) (no (unknown) (unknown) Chief Complaint: (units (unknown) date) Fall unknown) (unknown) (no (unknown) (unknown) Chloride (98-107) (units (unknown) date) mmol/L unknown) (unknown) (no (unknown) (unknown) Chloride 108 H (units (unknown) date) (98-107) mmol/L unknown) (unknown) (no (unknown) (unknown) Clinical (units (unkno wn) date) Impression: unknown) (unknown) (no (unknown) (unknown) Course (units (unkno wn) date) unknown) (unknown) (no (unknown) (unknown) Creatinine (units (unk nown) date) (0.66-1.25) mg/dL unknown) (unknown) (no (unknown) (unknown) Creatinine 0.80 (units (unknown) date) (0.66-1.25) mg/dL unknown) (unknown) (no (unknown) (unknown) : 1970 (units (unknown) date) Acct:[id number] unknown) (unknown) (no (unknown) (unknown) Date of Service: (units (unknown) date) 11/08/21 unknown) (unknown) (no (unknown) (unknown) Denies neck or back (unit s (unknown) date) pain. No chest pain unknown) or shortness of breath no nausea or (unknown) (no (unknown) (unknown) Departure (units (unkn own) date) unknown) (unknown) (no (unknown) (unknown) Discharge Plan (units (unknown) date) unknown) (unknown) (no (unknown) (unknown) Discontinued (units (u nknown) date) Medications unknown) (unknown) (no (unknown) (unknown) Distracting Injury (units (unknown) date) Present: No unknown) (unknown) (no (unknown) (unknown) ECG Data (units (unkno wn) date) unknown) (unknown) (no (unknown) (unknown) ER Physician: (units ( unknown) date) Jessica Aguila D.O. unknown) (unknown) (no (unknown) (unknown) Emergency Report (units (unknown) date) unknown) (unknown) (no (unknown) (unknown) Eos # (Auto) (units (u nknown) date) (0-450) /uL unknown) (unknown) (no (unknown) (unknown) Eos # (Auto) 300 (units (unknown) date) (0-450) /uL unknown) (unknown) (no (unknown) (unknown) Eos % (Auto) (2-4) (units (unknown) date) % unknown) (unknown) (no (unknown) (unknown) Eos % (Auto) 3.4 (units (unknown) date) (2-4) % unknown) (unknown) (no (unknown) (unknown) Estimated GFR > 60 (units (unknown) date) (>60) mL/min unknown) (unknown) (no (unknown) (unknown) Estimated GFR (>60) (unit s (unknown) date) mL/min unknown) (unknown) (no (unknown) (unknown) Exam Narrative: (units (unknown) date) unknown) (unknown) (no (unknown) (unknown) Exam (units (unkno wn) date) unknown) (unknown) (no (unknown) (unknown) Family History (units (unknown) date) (Reviewed 11/08/21 @ unknown) 05:56 by Arpita Mccain DO) (unknown) (no (unknown) (unknown) Father Healthy (units (unknown) date) adult unknown) (unknown) (no (unknown) (unknown) Focal Neurologic (units (unknown) date) deficit present: No unknown) (unknown) (no (unknown) (unknown) Follow up with your (unit s (unknown) date) physician for unknown) recheck. (unknown) (no (unknown) (unknown) GCS (units (unkno wn) date) unknown) (unknown) (no (unknown) (unknown) GEN: Male appears (units (unknown) date) older than stated unknown) age male, alert and oriented x 3, patient (unknown) (no (unknown) (unknown) :No CVA (units (unkn own) date) tenderness unknown) (unknown) (no (unknown) (unknown) General (units (unkno wn) date) unknown) (unknown) (no (unknown) (unknown) [place] coma scale (units (unknown) date) eye opening: unknown) Spontaneous (unknown) (no (unknown) (unknown) [place] coma scale (units (unknown) date) motor response: [place] unknown) commands (unknown) (no (unknown) (unknown) [place] coma scale (units (unknown) date) total score: 15 unknown) (unknown) (no (unknown) (unknown) [place] coma scale (units (unknown) date) verbal response: unknown) Orientated (unknown) (no (unknown) (unknown) Globulin (1.7-4.1) (units (unknown) date) g/dL unknown) (unknown) (no (unknown) (unknown) Globulin 3.5 (units (u nknown) date) (1.7-4.1) g/dL unknown) (unknown) (no (unknown) (unknown) Glucose (70-100) (units (unknown) date) mg/dL unknown) (unknown) (no (unknown) (unknown) Glucose 107 H (units ( unknown) date) (70-100) mg/dL unknown) (unknown) (no (unknown) (unknown) HEART: Regular rate (unit s (unknown) date) and rhythm without unknown) murmur, clicks, rubs. (unknown) (no (unknown) (unknown) HEENT: Patient has (units (unknown) date) a small hematoma unknown) posterior scalp, pupils are equal round (unknown) (no (unknown) (unknown) HPI - Fall (units (unk nown) date) unknown) (unknown) (no (unknown) (unknown) HPI Narrative: (units (unknown) date) unknown) (unknown) (no (unknown) (unknown) Hct (41-53) % (units ( unknown) date) unknown) (unknown) (no (unknown) (unknown) Hct 44.8 (41-53) % (units (unknown) date) unknown) (unknown) (no (unknown) (unknown) Healthy adult male (units (unknown) date) unknown) (unknown) (no (unknown) (unknown) Hgb (13.5-17.5) (units (unknown) date) g/dL unknown) (unknown) (no (unknown) (unknown) Hgb 15.4 (units (unkno wn) date) (13.5-17.5) g/dL unknown) (unknown) (no (unknown) (unknown) History of Present (units (unknown) date) Illness unknown) (unknown) (no (unknown) (unknown) INR (0.9-1.3) (units ( unknown) date) unknown) (unknown) (no (unknown) (unknown) INR 1.1 (0.9-1.3) (units (unknown) date) unknown) (unknown) (no (unknown) (unknown) Initial Vital Signs (unit s (unknown) date) unknown) (unknown) (no (unknown) (unknown) Initial Vital (units ( unknown) date) Signs: unknown) (unknown) (no (unknown) (unknown) Instructions: DI (units (unknown) date) for Syncope in unknown) Adults (Fainting) (unknown) (no (unknown) (unknown) Interpretation: (units (unknown) date) unknown) (unknown) (no (unknown) (unknown) Intoxication (units (u nknown) date) present: No unknown) (unknown) (no (unknown) (unknown) [facility] (units (unknown) date) [address] [place] [address] unknown) [place] [address] (unknown) (no (unknown) (unknown) LUNGS:Lungs clear (units (unknown) date) to auscultation, no unknown) wheezes, rales, crackles, chest moves (unknown) (no (unknown) (unknown) Lab Data (units (unkno wn) date) unknown) (unknown) (no (unknown) (unknown) Lab Results (units (un known) date) unknown) (unknown) (no (unknown) (unknown) Labs: (units (unkno wn) date) unknown) (unknown) (no (unknown) (unknown) Limitations: no (units (unknown) date) limitations unknown) (unknown) (no (unknown) (unknown) Lipase (23-300) U/L (unit s (unknown) date) unknown) (unknown) (no (unknown) (unknown) Lipase 46 (23-300) (units (unknown) date) U/L unknown) (unknown) (no (unknown) (unknown) Lymph # (Auto) (units (unknown) date) (0314-1388) /uL unknown) (unknown) (no (unknown) (unknown) Lymph # (Auto) 1700 (unit s (unknown) date) (6319-1215) /uL unknown) (unknown) (no (unknown) (unknown) Lymph % (Auto) (units (unknown) date) (25-40) % unknown) (unknown) (no (unknown) (unknown) Lymph % (Auto) 20.1 (unit s (unknown) date) L (25-40) % unknown) (unknown) (no (unknown) (unknown) MCH (26-34) PG (units (unknown) date) unknown) (unknown) (no (unknown) (unknown) MCH 30.6 (26-34) PG (unit s (unknown) date) unknown) (unknown) (no (unknown) (unknown) MCHC (30-36) % (units (unknown) date) unknown) (unknown) (no (unknown) (unknown) MCHC 34.3 (30-36) % (unit s (unknown) date) unknown) (unknown) (no (unknown) (unknown) MCV (80-100) fL (units (unknown) date) unknown) (unknown) (no (unknown) (unknown) MCV 89.3 (80-100) (units (unknown) date) fL unknown) (unknown) (no (unknown) (unknown) MDM - Fall (units (unk nown) date) unknown) (unknown) (no (unknown) (unknown) MDM Narrative (units ( unknown) date) unknown) (unknown) (no (unknown) (unknown) MSCL: Non-tender, (units (unknown) date) no muscle atrophy, unknown) muscles strength 5/5 upper and lower (unknown) (no (unknown) (unknown) Medical History (units (unknown) date) (Reviewed 11/08/21 @ unknown) 05:56 by Arpita Mccain DO) (unknown) (no (unknown) (unknown) Medical decision (units (unknown) date) making narrative: unknown) (unknown) (no (unknown) (unknown) Medication (units (unk nown) date) Instructions unknown) Recorded (unknown) (no (unknown) (unknown) Midline spinal (units (unknown) date) tenderness present: unknown) No (unknown) (no (unknown) (unknown) Miscellaneous,[place] (unit s (unknown) date) MD hiwot [Primary Care unknown) Provider] (unknown) (no (unknown) (unknown) Mode of arrival: (units (unknown) date) Ambulatory unknown) (unknown) (no (unknown) (unknown) Story # (Auto) (units ( unknown) date) (0-900) /uL unknown) (unknown) (no (unknown) (unknown) Story # (Auto) 600 (units (unknown) date) (0-900) /uL unknown) (unknown) (no (unknown) (unknown) Story % (Auto) (units ( unknown) date) (3-14) % unknown) (unknown) (no (unknown) (unknown) Story % (Auto) 7.4 (units (unknown) date) (3-14) % unknown) (unknown) (no (unknown) (unknown) Mother Asthma (units ( unknown) date) unknown) (unknown) (no (unknown) (unknown) NEURO:CN 2-12 (units ( unknown) date) intact, sensation unknown) normal, reflexes 2/4 upper and lower (unknown) (no (unknown) (unknown) NT-Pro-B Natriuret (units (unknown) date) Pep (<125) pg/mL unknown) (unknown) (no (unknown) (unknown) NT-Pro-B Natriuret (units (unknown) date) Pep 77 (<125) pg/mL unknown) (unknown) (no (unknown) (unknown) Narrative (units (unkn own) date) unknown) (unknown) (no (unknown) (unknown) Neut # (Auto) (units ( unknown) date) (9521-2380) /uL unknown) (unknown) (no (unknown) (unknown) Neut # (Auto) 5700 (units (unknown) date) (1053-4650) /uL unknown) (unknown) (no (unknown) (unknown) Neut % (Auto) (units ( unknown) date) (50-75) % unknown) (unknown) (no (unknown) (unknown) Neut % (Auto) 68.7 (units (unknown) date) (50-75) % unknown) (unknown) (no (unknown) (unknown) Nexus Criteria for (units (unknown) date) C-spine: 0 unknown) (unknown) (no (unknown) (unknown) Nexus Score for (units (unknown) date) C-Spine unknown) (unknown) (no (unknown) (unknown) No Action (units (unkn own) date) unknown) (unknown) (no (unknown) (unknown) No Known Drug (units ( unknown) date) Allergies Allergy unknown) Verified 10/16/21 10:41 (unknown) (no (unknown) (unknown) No significant past (unit s (unknown) date) surgical history unknown) (unknown) (no (unknown) (unknown) Ordered: (units (unkno wn) date) unknown) (unknown) (no (unknown) (unknown) Orders (units (unkno wn) date) unknown) (unknown) (no (unknown) (unknown) Oxygen Delivery (units (unknown) date) Method 11/08/21 unknown) 05:25 (unknown) (no (unknown) (unknown) Oxygen Delivery (units (unknown) date) Method Room Air unknown) (unknown) (no (unknown) (unknown) Oxygen Delivery (units (unknown) date) Method unknown) (unknown) (no (unknown) (unknown) PT (10.1-12.7) (units (unknown) date) SECONDS unknown) (unknown) (no (unknown) (unknown) PT 12.2 (10.1-12.7) (unit s (unknown) date) SECONDS unknown) (unknown) (no (unknown) (unknown) Patient (units (unkno wn) date) Disposition: Home unknown) (unknown) (no (unknown) (unknown) Patient History (units (unknown) date) unknown) (unknown) (no (unknown) (unknown) Patient signed out (units (unknown) date) to Dr. Aguila while unknown) awaiting final portion of workup for (unknown) (no (unknown) (unknown) Patient signed out (units (unknown) date) to ri by Dr. Mccain. I unknown) seen evaluated patient myself. Sounds (unknown) (no (unknown) (unknown) Patient's (units (unkn own) date) orthostatics here unknown) are negative this morning. (unknown) (no (unknown) (unknown) Patient: (units (unkno wn) date) Wm Sutton R unknown) MR#: M (unknown) (no (unknown) (unknown) Please return for (units (unknown) date) new or worsening unknown) symptoms, recurrent passing out, new (unknown) (no (unknown) (unknown) Plt Count (150-400) (unit s (unknown) date) X103/uL unknown) (unknown) (no (unknown) (unknown) Plt Count 228 (units ( unknown) date) (150-400) X103/uL unknown) (unknown) (no (unknown) (unknown) Potassium (3.4-5.1) (unit s (unknown) date) mmol/L unknown) (unknown) (no (unknown) (unknown) Potassium 3.3 L (units (unknown) date) (3.4-5.1) mmol/L unknown) (unknown) (no (unknown) (unknown) Prescriptions: (units (unknown) date) unknown) (unknown) (no (unknown) (unknown) Previous Rx's (units ( unknown) date) unknown) (unknown) (no (unknown) (unknown) Prior ECG tracings: (unit s (unknown) date) not available for unknown) review (unknown) (no (unknown) (unknown) Pulse Oximetry 97 (units (unknown) date) 97 unknown) (unknown) (no (unknown) (unknown) Pulse Oximetry 97 (units (unknown) date) unknown) (unknown) (no (unknown) (unknown) Pulse Oximetry 99 (units (unknown) date) 11/08/21 05:25 unknown) (unknown) (no (unknown) (unknown) Pulse Oximetry 99 (units (unknown) date) 97 97 unknown) (unknown) (no (unknown) (unknown) Pulse Rate 69 (units ( unknown) date) unknown) (unknown) (no (unknown) (unknown) Pulse Rate 74 65 (units (unknown) date) unknown) (unknown) (no (unknown) (unknown) Pulse Rate 75 72 (units (unknown) date) unknown) (unknown) (no (unknown) (unknown) Pulse Rate 79 87 (units (unknown) date) unknown) (unknown) (no (unknown) (unknown) Pulse Rate 88 (units ( unknown) date) 11/08/21 05:25 unknown) (unknown) (no (unknown) (unknown) Pulse Rate 88 88 86 (unit s (unknown) date) unknown) (unknown) (no (unknown) (unknown) Pulse Rate 91 H (units (unknown) date) unknown) (unknown) (no (unknown) (unknown) Pulse Rate (units (unk nown) date) [Orthostatic Lying] unknown) 78 (unknown) (no (unknown) (unknown) Pulse Rate (units (unk nown) date) [Orthostatic Lying] unknown) (unknown) (no (unknown) (unknown) Pulse Rate (units (unk nown) date) [Orthostatic unknown) Sitting] 75 (unknown) (no (unknown) (unknown) Pulse Rate (units (unk nown) date) [Orthostatic unknown) Sitting] (unknown) (no (unknown) (unknown) Pulse Rate (units (unk nown) date) [Orthostatic unknown) Standing] 95 H (unknown) (no (unknown) (unknown) Pulse Rate (units (unk nown) date) [Orthostatic unknown) Standing] (unknown) (no (unknown) (unknown) RBC (4.5-5.9) (units ( unknown) date) X106/uL unknown) (unknown) (no (unknown) (unknown) RBC 5.02 (4.5-5.9) (units (unknown) date) X106/uL unknown) (unknown) (no (unknown) (unknown) RDW (11.6-14.8) % (units (unknown) date) unknown) (unknown) (no (unknown) (unknown) RDW 13.7 (units (unkno wn) date) (11.6-14.8) % unknown) (unknown) (no (unknown) (unknown) ROS Unobtainable: (units (unknown) date) All systems reviewed unknown) + are unremarkable except as noted in HPI (unknown) (no (unknown) (unknown) Referrals: (units (unk nown) date) unknown) (unknown) (no (unknown) (unknown) Related Data (units (u nknown) date) unknown) (unknown) (no (unknown) (unknown) Respiratory Rate 18 (unit s (unknown) date) 11/08/21 05:25 unknown) (unknown) (no (unknown) (unknown) Respiratory Rate 18 (unit s (unknown) date) unknown) (unknown) (no (unknown) (unknown) Respiratory Rate 20 (unit s (unknown) date) unknown) (unknown) (no (unknown) (unknown) Respiratory Rate 21 (unit s (unknown) date) 19 unknown) (unknown) (no (unknown) (unknown) Respiratory Rate 22 (unit s (unknown) date) unknown) (unknown) (no (unknown) (unknown) Respiratory Rate (units (unknown) date) unknown) (unknown) (no (unknown) (unknown) Result diagrams: (units (unknown) date) unknown) (unknown) (no (unknown) (unknown) Review of Systems (units (unknown) date) unknown) (unknown) (no (unknown) (unknown) SARS-CoV-2 (PCR) (units (unknown) date) (Negative) unknown) (unknown) (no (unknown) (unknown) SARS-CoV-2 (PCR) (units (unknown) date) Negative (Negative) unknown) (unknown) (no (unknown) (unknown) Scores (units (unkno wn) date) unknown) (unknown) (no (unknown) (unknown) Signed By: (units (unk nown) date) unknown) (unknown) (no (unknown) (unknown) Sinus rhythm rate (units (unknown) date) of 77 [place] 152 QRS 88 unknown) QTC 436. RSR in [address] (unknown) (no (unknown) (unknown) Sister Healthy (units (unknown) date) adult unknown) (unknown) (no (unknown) (unknown) Smoking Status: (units (unknown) date) Current every day unknown) smoker (unknown) (no (unknown) (unknown) Social History (units (unknown) date) (Reviewed 11/08/21 @ unknown) 05:56 by Arpita Mccain DO) (unknown) (no (unknown) (unknown) Sodium (137-145) (units (unknown) date) mmol/L unknown) (unknown) (no (unknown) (unknown) Sodium 141 (units (unk nown) date) (137-145) mmol/L unknown) (unknown) (no (unknown) (unknown) Sodium Chloride (units (unknown) date) (Normal Saline 0.9%) unknown) 1,000 mls @ 1,000 mls/hr IV BOLUS ONE (unknown) (no (unknown) (unknown) Source: patient (units (unknown) date) unknown) (unknown) (no (unknown) (unknown) Stand Alone Forms: (units (unknown) date) Work Release Note unknown) (unknown) (no (unknown) (unknown) Stated Complaint: (units (unknown) date) low blood pressure, unknown) passed out hit head (unknown) (no (unknown) (unknown) Stop: 11/08/21 (units (unknown) date) 06:50 unknown) (unknown) (no (unknown) (unknown) Substance Use Type: (unit s (unknown) date) does not use unknown) (unknown) (no (unknown) (unknown) Surgical History (units (unknown) date) (Reviewed 11/08/21 @ unknown) 05:56 by Arpita Mccain DO) (unknown) (no (unknown) (unknown) Syncope (units (unkno wn) date) unknown) (unknown) (no (unknown) (unknown) Temperature 98 F (units (unknown) date) 11/08/21 05:25 unknown) (unknown) (no (unknown) (unknown) Temperature 98 F (units (unknown) date) unknown) (unknown) (no (unknown) (unknown) Temperature (units (un known) date) unknown) (unknown) (no (unknown) (unknown) This is a (units (unkn own) date) 51-year-old male unknown) with history of neuropathy and tobacco abuse who (unknown) (no (unknown) (unknown) This is a (units (unkn own) date) 51-year-old who unknown) takes gabapentin daily for neuropathy from prior (unknown) (no (unknown) (unknown) Time Seen by (units (u nknown) date) Provider: 11/08/21 unknown) 05:42 (unknown) (no (unknown) (unknown) Tobacco dependence (units (unknown) date) unknown) (unknown) (no (unknown) (unknown) Total Bilirubin (units (unknown) date) (0.2-1.3) mg/dL unknown) (unknown) (no (unknown) (unknown) Total Bilirubin 0.7 (unit s (unknown) date) (0.2-1.3) mg/dL unknown) (unknown) (no (unknown) (unknown) Total Creatine (units (unknown) date) Kinase (55-170) U/L unknown) (unknown) (no (unknown) (unknown) Total Creatine (units (unknown) date) Kinase 140 (55-170) unknown) U/L (unknown) (no (unknown) (unknown) Total Protein (units ( unknown) date) (6.3-8.2) g/dL unknown) (unknown) (no (unknown) (unknown) Total Protein 7.9 (units (unknown) date) (6.3-8.2) g/dL unknown) (unknown) (no (unknown) (unknown) Troponin I < 0.012 (units (unknown) date) (0.01-0.034) ng/mL unknown) (unknown) (no (unknown) (unknown) Troponin I (units (unk nown) date) (0.01-0.034) ng/mL unknown) (unknown) (no (unknown) (unknown) Visit Report Forms: (unit s (unknown) date) Patient Portal/API unknown) (unknown) (no (unknown) (unknown) Vital Signs - 8 hr (units (unknown) date) unknown) (unknown) (no (unknown) (unknown) Vital Signs (units (un known) date) unknown) (unknown) (no (unknown) (unknown) Vital signs: (units (u nknown) date) unknown) (unknown) (no (unknown) (unknown) WBC (4.5-11.0) (units (unknown) date) X103/uL unknown) (unknown) (no (unknown) (unknown) WBC 8.4 (4.5-11.0) (units (unknown) date) X103/uL unknown) (unknown) (no (unknown) (unknown) [Embedded Image Not (unit s (unknown) date) Available] unknown) (unknown) (no (unknown) (unknown) abdominal, back or (units (unknown) date) flank pain. Patient unknown) denies any incontinence fecal or (unknown) (no (unknown) (unknown) alcohol intake (units (unknown) date) frequency: unknown) holidays/special occasions only (unknown) (no (unknown) (unknown) alcohol intake: (units (unknown) date) never unknown) (unknown) (no (unknown) (unknown) and below (units (unkn own) date) unknown) (unknown) (no (unknown) (unknown) another very short (units (unknown) date) episode where he unknown) states he did not completely pass out but (unknown) (no (unknown) (unknown) appears to be in (units (unknown) date) mild distress. unknown) (unknown) (no (unknown) (unknown) are negative so (units (unknown) date) far. No rhythm unknown) changes. Awaiting covid swab and recheck. (unknown) (no (unknown) (unknown) as though he had (units (unknown) date) micturition syncope unknown) stood up again to quickly. Blood work is (unknown) (no (unknown) (unknown) carpal tunnel (units ( unknown) date) surgery and unknown) orthopedic fracture. Patient presents with possible (unknown) (no (unknown) (unknown) clear without any (units (unknown) date) exudates, erythema, unknown) tonsillar enlargement or uvular deviation, (unknown) (no (unknown) (unknown) comparison (units (unk nown) date) unknown) (unknown) (no (unknown) (unknown) denies illicit. (units (unknown) date) Patient notes he has unknown) not had any prior syncopal episodes. (unknown) (no (unknown) (unknown) did go to the floor (unit s (unknown) date) for a couple unknown) seconds. He denies headache pre or post. (unknown) (no (unknown) (unknown) elevation (units (unkn own) date) depression noted unknown) elsewhere. Patient does not have priors for (unknown) (no (unknown) (unknown) extremities, full (units (unknown) date) range of motion, unknown) normal gait (unknown) (no (unknown) (unknown) extremities. (units (u nknown) date) unknown) (unknown) (no (unknown) (unknown) feeling better. (units (unknown) date) unknown) (unknown) (no (unknown) (unknown) final disposition. (units (unknown) date) unknown) (unknown) (no (unknown) (unknown) floor. States he (units (unknown) date) hit the back of his unknown) head he has a goose egg on the back of his (unknown) (no (unknown) (unknown) for fracture. He (units (unknown) date) does use tobacco unknown) daily, denies recent or regular alcohol use, (unknown) (no (unknown) (unknown) head that is (units (u nknown) date) tender. Patient unknown) notes that he then got walked to the bedroom had (unknown) (no (unknown) (unknown) headaches, chest (units (unknown) date) pain, shortness of unknown) breath, persistent vomiting, loss of bowel (unknown) (no (unknown) (unknown) household members: (units (unknown) date) spouse and family unknown) (unknown) (no (unknown) (unknown) immediately (units (un known) date) thereafter after unknown) urinating on the toilet. Patient had EKG which (unknown) (no (unknown) (unknown) in 3 and AVF with (units (unknown) date) no priors for unknown) comparison. Head CT, chest x-ray and lab work (unknown) (no (unknown) (unknown) lab work. (units (unkn own) date) unknown) (unknown) (no (unknown) (unknown) levofloxacin 750 mg (unit s (unknown) date) tablet 750 mg PO unknown) DAILY #4 tabs 06/10/18 (unknown) (no (unknown) (unknown) levofloxacin 750 mg (unit s (unknown) date) tablet unknown) (unknown) (no (unknown) (unknown) masses noted, no (units (unknown) date) hepatosplenomegaly unknown) (unknown) (no (unknown) (unknown) medications. Denies (unit s (unknown) date) surgeries besides unknown) his carpal tunnel and surgical fixation (unknown) (no (unknown) (unknown) methocarbamol 500 (units (unknown) date) mg tablet 500 mg PO unknown) TID PRN Neck pain #18 10/16/21 (unknown) (no (unknown) (unknown) methocarbamol 500 (units (unknown) date) mg tablet unknown) (unknown) (no (unknown) (unknown) mg tablet (units (unkn own) date) (Percocet) unknown) (unknown) (no (unknown) (unknown) negative COVID is (units (unknown) date) negative. Patient unknown) has no neurologic deficits. Overall (unknown) (no (unknown) (unknown) nontender sees (units (unknown) date) range of motion unknown) (unknown) (no (unknown) (unknown) numbness, tingling (units (unknown) date) or weakness of unknown) extremities. He does not take any other daily (unknown) (no (unknown) (unknown) on the toilet when (units (unknown) date) he stood up the next unknown) thing he remembers is being on the (unknown) (no (unknown) (unknown) or bladder control (units (unknown) date) or other new or unknown) concerning symptoms. (unknown) (no (unknown) (unknown) oxycodone-acetamino (unit s (unknown) date) phen 5 mg-325 1 tab unknown) PO Q6H PRN pain #10 tabs 10/16/21 (unknown) (no (unknown) (unknown) oxycodone-acetamino (unit s (unknown) date) phen [Percocet] unknown) 5-325 mg tablet (unknown) (no (unknown) (unknown) presents with (units (u nknown) date) complaint of unknown) syncopal episode with a near syncopal episode immedia (unknown) (no (unknown) (unknown) presents with (units ( unknown) date) complaint of unknown) syncopal episode with a near syncopal episode (unknown) (no (unknown) (unknown) reactive to light, (units (unknown) date) extraocular unknown) movements are intact, nares are clear. Throat is (unknown) (no (unknown) (unknown) shows RSR in 3 and (units (unknown) date) AVF with no priors unknown) for comparison. Head CT, chest x-ray and (unknown) (no (unknown) (unknown) substance use type: (unit s (unknown) date) does not use unknown) (unknown) (no (unknown) (unknown) symmetrically (units ( unknown) date) unknown) (unknown) (no (unknown) (unknown) syncopal episode. (units (unknown) date) Patient states he unknown) got up to urinate tonight, he was sitting (unknown) (no (unknown) (unknown) tabs (units (unkno wn) date) unknown) (unknown) (no (unknown) (unknown) tely thereafter (units (unknown) date) after urinating on unknown) the toilet. Patient had EKG which shows RSR (unknown) (no (unknown) (unknown) urinary. No (units (un known) date) diarrhea or unknown) constipation, no dysuria, urgency or frequency. No new (unknown) (no (unknown) (unknown) vomiting. He has (units (unknown) date) some dizziness unknown) afterwards but did not have any prior to any Social History No information. Vital Signs No information.
[2021-11-09] MEDS ORDERED: lidocaine 1% 20 ML MDV SUBQ ONE (20:11)
[2021-11-09] MEDS ORDERED: CHERRY SYRUP 10 ML UDC PO ONE (20:12)
[2021-11-09] MEDS ORDERED: DEXAMETHASONE 10 MG/ML VIAL PO STA (20:12)
--- NOTE | 2021-11-09 20:28 | ED Physician Documentation ---
History of Present Illness - Stated complaint Stated Complaint: MIDDLE BACK PAIN - Chief complaint Chief Complaint: Back Pain - Additonal information Additional information: 51-year-old male returns the emergency department for evaluation of persistent left posterior thoracic back pain. Seen in this emergency department for similar yesterday evening. He had CT Of the abdomen pelvis completed that did not show any acute findings. At the time of initial ED evaluation yesterday it was very reproducible and focal. Patient was prescribed lidocaine and Robaxin without relief of symptoms. Thus he returns tonight. It should be noted that he also was seen at [facility] yesterday after a syncopal episode while micturating. He had unremarkable laboratory work-up as well as a CT scan at that time. The patient reports that if he moves or turns in a certain way he feels pain in his left posterior back. It does not radiate. No cough or fevers. Review of Systems Constitutional: reports: Reviewed and negative Eyes: reports: Reviewed and negative Throat: reports: Reviewed and negative Cardiac: reports: Reviewed and negative Musculoskeletal: reports: Back pain PD PAST MEDICAL HISTORY - Past Medical History Cardiovascular: None Respiratory: None Endocrine/Autoimmune: None GI: None : None HEENT: None Psych: None Derm: None - Past Surgical History Past Surgical History: Yes - Present Medications Home Medications: Ambulatory Orders Medication Instructions Recorded Confirmed Amoxicillin/Potassium Clav 1 each PO BID #20 tablet 03/06/14 [Augmentin 875-125 Tablet] Ciproflox/Dexameth Otic Drops 4 drops OT BID 7 Days bottle 03/06/14 [Ciprodex] HYDROcod/ACETAM 5/325 [[employer] 5/325] 1 - 2 tablet PO Q6H PRN #10 tablet 11/09/21 Lidocaine Patch 5% [Lidoderm Patch] 1 patch TOP DAILY #10 patch 11/09/21 methocarbamoL [Robaxin] 500 mg PO Q6H #20 tablet 11/09/21 - Allergies Allergies/Adverse Reactions: Allergies Allergy/AdvReac Type Severity Reaction Status Date / Time No Known Drug Allergies Allergy Verified 11/09/21 19:56 - Social History Does the pt smoke?: Yes Smoking Status: Current every day smoker Does the pt drink ETOH?: No Does the pt have substance abuse?: No - POLST Patient has POLST: No PD ED PE EXPANDED - General General: Alert, No acute distress, Other (Patient was shot out in pain with any movement Of his back) - Cardiac Cardiac: Regular Rate, Radial strong equal - Respiratory Respiratory: Clear to ausultation caio. No: Distress, Labored - Back Back: Soft tissue tenderness (focal tenderness lef tlaterl paraspinous muscle b elwo the scapula. Can see visible spasm with movement. no ecchymosis). No: Vertebral tenderness - Derm Derm: Normal color, Warm and dry. No: Rash, Abrasion (s), Bruising Results - Vitals Vitals: Vital Signs - 24 hr 11/09/21 19:52 Temperature 36.4 C L Heart Rate 90 Respiratory 16 Rate Blood Pressure 131/81 H O2 Saturation 97 Oxygen O2 Source Room air PD MEDICAL DECISION MAKING - ED course Complexity details: reviewed results, considered differential, d/w patient ED course: 51-year-old male comes to the emergency department for evaluation of persistent left thoracic paraspinous muscle pain. Symptoms began yesterday evening was seen in the ER. At that time exam and history is most consistent with musculoskeletal injury. It remained so today. Anytime he moves or twist in his back he feels a spasm and it is visible on exam. A CT yesterday was negative. I did attempt a trigger point injection with 1% lidocaine though patient did not find relief with this. I will make the recommendation that he continue the Robaxin as well as lidocaine patches. I am encouraging gentle compress and massage as well as limited amount of [employer]. Emergent return precautions otherwise discussed. Departure - Departure Disposition: 01 Home, Self Care Clinical Impression: Spasm of thoracic back muscle Condition: Stable Record reviewed to determine appropriate education?: Yes Prescriptions: HYDROcod/ACETAM 5/325 [[employer] 5/325] 1 - 2 tablet PO Q6H PRN #10 tablet PRN Reason: Pain Comments: Wm there is a point on your left thoracic paraspinous muscles that is quite tender. We can feel it spasming when you move. I did attempt a trigger point injection at the bedside though it does not seem to have been effective. I think he should continue the lidocaine patches as well as the Robaxin the muscle relaxer prescribed by my colleague. You can continue to take ibuprofen. For severe pain I have sent a limited amount of [employer] to the [facility] in [place]. Return to the ER if you develop fevers, have difficulty breathing, any fainting episodes. I do recommend that you have close follow-up with your primary care provider. I am prescribing a short course of narcotic pain medication for you. These are potentially dangerous and addictive medications that should be used carefully. These medications may constipate you. Take an aoxe-hyi-khhtmvm stool softener (docusate) twice daily with plenty of water while taking these medications. If you go 24 hours without a bowel movement, take [id number] miralax, per package instructions. Do not drink or drive while taking these medications. If you received narcotic or sedating medications while in the emergency depar tment, do not drive for 24 hours. Store this medication in a safe, secure place and out of reach of children. It is a violation of federal law to give or sell this medication to another person or to use in a manner other than prescribed. The ED will not refill narcotic prescriptions, including prescriptions lost or stolen. To dispose of unwanted medications: 1. [facility] at [address] in [place] has a medication drop box. They accept prescription medications (in pill form) Friday through Friday 9:00 a.m. to 5:00 p.m. 2. [facility] [employer] accepts prescription medications (in pill form only) for disposal year round. Call for more information. 3. Contact the [facility] for the next [facility] sponsored prescription drug collection event. , [phone], or [phone]; Note that many narcotic pain relievers also contain Tylenol/acetaminophen. Please ensure that your total dose of acetaminophen from all sources does not exceed 3 g (3000 mg) per day. .
[2021-11-09 20:54] VITALS: BP 133/79
== END 2021-11-09 20:53 | disposition home or self-care (01) ==
LOC: ED 19:46
DX: M62.830 Muscle spasm of back (principal); F17.200 Nicotine dependence, unspecified, uncomplicated; M54.50 Low back pain, unspecified
CPT/HCPCS: 74176; 96372; 99282; 99283; 99284; A9270

== ENCOUNTER 2023-07-05 17:00 | Emergency (ER) | payer BC, MEDICAID, OTHER ==
--- NOTE | 2023-07-05 18:52 | XRAY Report ---
PROCEDURE: Ankle 3+V LT INDICATIONS: Trauma TECHNIQUE: 3 views of the ankle were acquired. COMPARISON: None FINDINGS: Bones: No fractures or dislocations. Ankle mortise is normally aligned. No suspicious bony lesions . Soft tissues: Unremarkable without significant soft tissue swelling. No radiopaque foreign body. IMPRESSION: Unremarkable ankle radiographs Reviewed by: Chad Pfeiffer MD on 07/05/2023 5:50 PM AKDT Approved by: Chad Pfeiffer MD on 07/05/2023 5:50 PM AKDT Station ID: [id number]
--- NOTE | 2023-07-05 19:59 | ED Physician Documentation ---
PD HPI LOWER EXT INJURY - Stated complaint Stated Complaint: FALL, LEFT FT PX - Chief complaint Chief Complaint: Trauma Ext - History obtained from History obtained from: Patient - Additional information Additional information: 52-year-old male presents for evaluation of left foot pain. He slipped in the shower and injured the side of his L foot. Concerned he may have a fracture Review of Systems Constitutional: denies: Fever, Chills Musculoskeletal: reports: Extremity pain. denies: Neck pain, Back pain, Joint pain Neurologic: denies: Generalized weakness, Focal weakness, Numbness PD PAST MEDICAL HISTORY - Past Medical History Cardiovascular: None Respiratory: None Endocrine/Autoimmune: None GI: None : None HEENT: None Psych: None Derm: None - Past Surgical History Past Surgical History: Yes - Present Medications Home Medications: Ambulatory Orders Medication Instructions Recorded Confirmed No Known Home Medications 07/05/23 07/05/23 - Allergies Allergies/Adverse Reactions: Allergies Allergy/AdvReac Type Severity Reaction Status Date / Time No Known Drug Allergies Allergy Verified 11/09/21 19:56 - Social History Does the pt smoke?: Yes Smoking Status: Current every day smoker Does the pt drink ETOH?: No Does the pt have substance abuse?: No - POLST Patient has POLST: No PD ED PE NORMAL - Vitals Vital signs reviewed: Yes - General General: Alert and oriented X 3, No acute distress, Well developed/nourished - Derm Derm: Normal color, Warm and dry, No rash - Extremities Extremities: No deformity, Normal ROM s pain, No edema, Other (generlized TTP lateral L foot) - Neuro Neuro: Alert and oriented X 3, 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 Denies other accident or injury. X-ray imaging negative for acute traumatic findings. Patient relieved to know that he does not have a fracture. BEVERLY instructions counseled at bedside Departure - Departure Disposition: 01 Home, Self Care Clinical Impression: Injury of foot Qualifiers: Encounter type: initial encounter Laterality: left Qualified Code(s): S99.922A - Unspecified injury of left foot, initial encounter Condition: Stable Instructions: ED Sprain Foot Comments: There are no fractures on your x rays. Take tylenol and ibuprofen as needed for pain, apply ice to areas of swelling Forms: PCP List Discharge Date/Time: 07/05/23 20:29
--- NOTE | 2023-07-05 20:13 | XRAY Report ---
PROCEDURE: Foot 3+V LT INDICATIONS: slip in shower, outer foot pain TECHNIQUE: 3 views of the foot were acquired. COMPARISON: Correlation is made with the accompanying imaging. FINDINGS: Bones: No fractures or dislocations. Specifically, the fifth metatarsal demonstrates no fracture. N o suspicious bony lesions. Incidental note is made of a bipartite medial sesamoid bone. Soft tissues: No tibiotalar joint effusion. Achilles tendon appears normal. IMPRESSION: No acute bony abnormality. No fracture of the fifth metatarsal. Reviewed by: Andrei Byrd MD on 07/05/2023 7:12 PM [facility]I Approved by: Andrei Byrd MD on 07/05/2023 7:12 PM ADI Station ID: [id number]
[2023-07-05 20:28] VITALS: BP 124/90; O2SAT 100
== END 2023-07-05 20:29 | disposition home or self-care (01) ==
LOC: ED 17:00
DX: S99.922A Unspecified injury of left foot, initial encounter (principal); W18.2XXA Fall in (into) shower or empty bathtub, initial encounter; Y93.E1 Activity, personal bathing and showering; Y92.002 Bathroom of unspecified non-institutional (private) residence as the place of occurrence of the external cause; F17.200 Nicotine dependence, unspecified, uncomplicated
CPT/HCPCS: 99283